=== PATIENT | male | born 1950 | race Caucasian/White ===

== ENCOUNTER 2020-08-07 07:46 | Inpatient (IN) ==
--- NOTE | 2020-07-16 13:38 | PAT Medication Instructions ---
Medication Instructions Date of Service July 16, 2020 Home Medications atorvastatin 10 mg PO QAM levothyroxine 150 mcg PO QAM metoprolol tartrate 12.5 mg PO BID multivitamin 1 tab PO QAM lisinopril 5 mg PO PM warfarin 5 mg PO PM ASK your prescriber and surgeon warfarin 5 mg PO PM DO NOT take the morning of surgery multivitamin 1 tab PO QAM Take morning of surgery With a small sip of water, OTHERWISE NOTHING TO EAT OR DRINK AFTER MIDNIGHT: atorvastatin 10 mg PO QAM levothyroxine 150 mcg PO QAM metoprolol tartrate 12.5 mg PO BID Take evening before surgery metoprolol tartrate 12.5 mg PO BID lisinopril 5 mg PO PM Other Notes If you have any questions please call us at [phone] or [phone] or [phone] or [phone]
--- NOTE | 2020-07-17 08:22 | Anesthesiology Consultation ---
Date of Service July 17, 2020 Assessment & Plan (1) Encounter for pre-operative examination: Chart Review Chart Review: Acceptable Risk for Surgery (pending surgeon ordered PCP/cardio clearance and preop Covid testing ) and Patient seen in Pre Admission Testing Awaiting surgeon ordered PCP clearance (07/20) and cardio clearance (07/24) - Check coags AM DOS Per PAT appt on 07/17/20, patient denies any recent traveling or large group activities. Pt resides in [facility]- travels to [facility] for medical appts. No known Covid positive contacts or Covid related symptoms. No known Covid infection in the past 90 days. Preop Covid testing scheduled 07/31/20= will await results. Educated on importance of self quarantining, social distancing and wearing mask in public both for the patient and household contacts. Cardioversion 03/13/20= Done under [facility] Teaching & Discussion Pre-Anesthesia Teaching/Discussion Notes: Instructed NPO after midnight before surgery,except medications with 15 cc of water. Medication instructions provided according to the [facility] guidelines. History Surgery Operation Date: 08/07/20 10:05 Proposed Procedures p L3-S1 Posterior Decompression/Fusion, Spinal Cord Monitoring - Thom Valverde DO Height/Weight Height: 6 ft Weight: 117.4 kg Allergies Allergy/AdvReac Type Severity Reaction Status Date / Time No Known Allergies Allergy Verified 07/16/20 11:09 Medications Home Medications Medication Instructions Recorded Confirmed Last Taken atorvastatin 10 mg PO QAM 03/09/20 07/16/20 Unknown levothyroxine 150 mcg PO QAM 03/09/20 07/16/20 Unknown metoprolol tartrate 12.5 mg PO BID 03/09/20 07/16/20 Unknown multivitamin 1 tab PO QAM 03/09/20 07/16/20 Unknown lisinopril 5 mg PO PM 07/16/20 07/16/20 Unknown warfarin 5 mg PO PM 07/16/20 07/16/20 Unknown Past Medical History Medical History (Updated 07/17/20 @ 08:56 by Thalia Meza PA-C) Anxiety no meds at present Atrial fibrillation dx fall 2019 > Metoprolol/Warfarin > cardioversion x1 BPH (benign prostatic hyperplasia) Chronic back pain CKD (chronic kidney disease) Per records- Stage 3 Hyperlipidemia Hypothyroidism NICM (nonischemic cardiomyopathy) EF 40-45% on 05/2020 ECHO Lisinopril for this, not HTN per pt Osteoarthritis Prediabetes Per [facility] Exercise / Class Metabolic Activity III < 4 Walking/Shop/Light housework (one flight of stairs - no chest pain, mild SOB ) Past Surgical History Surgical History History of cardiac cath no stents > Apr 2020 > [facility] History of cardioversion Feb 2020 History of cataract surgery bilat History of colonoscopy History of prostate surgery for enlargement History of tonsillectomy History of tooth extraction History of total hip arthroplasty bilat Past Anesthesia History No Hx of Anesthesia Complications and No Family Hx of Anesthesia Complications History of PONV No Hx of PONV and No Hx of Motion Sickness Social History Smoking Status: Never smoker Do You Dip or Chew Tobacco: Yes (on occasion> advised) Hx Alcohol Use: Yes Alcohol type: beer alcohol intake frequency: a few times a month Hx Substance Use: No substance use type: does not use Review of Systems HAGAN- chronic and ongoing since back issue Patient denies chest pain, shortness of breath at rest, reflux, cough, wheezing, palpitations. No hx of seizures, stroke, HI, apnea/snoring. No hx of blood clots or blood transfusions Physical Exam Vital Signs VITALS BP 159/77 (usually well controlled per patient) P 56 TEMP 97.8 SP02 96% RESP 16 Constitutional no acute distress ENMT Mouth: no TMJ clicking Thyromental Distance: > or= 3.5 Finger Breadths (3.5) Mallampati Class: III Missing molars Caps/crowns on molars and front teeth Permanent implant - on top right tooth Neck + limited neck extension (moderate to severe ) Respiratory normal respiratory effort; no respiratory distress Auscultation: lungs clear to auscultation bilaterally; no wheezes Cardiovascular Rate/Rhythm: + irregularly irregular (rate controlled ) Heart Sounds: no murmur Vessels: no carotid bruit Musculoskeletal Spine: no pain with cervical ROM Extremities: extremities normal to inspection Psychiatric Orientation: alert Testing Laboratory Results 07/17/20 08:40 07/17/20 08:40 PT 21.8 Seconds (9.0-12.0) H 07/17/20 08:40 INR 2.3 (0.9-1.1) H 07/17/20 08:40 APTT 40.4 Seconds (21.0-31.0) H 07/17/20 08:40 Urine Color Yellow 07/17/20 08:40 Urine Appearance Clear (Clear) 07/17/20 08:40 Urine pH 5.0 (4.5-7.5) 07/17/20 08:40 Ur Specific [place] 1.019 (1.000-1.030) 07/17/20 08:40 Urine Protein Negative (Negative) 07/17/20 08:40 Urine Glucose (UA) Negative (Negative) 07/17/20 08:40 Urine Ketones Negative (Negative) 07/17/20 08:40 Urine Nitrite Negative (Negative) 07/17/20 08:40 Ur Leukocyte Esterase Negative (Negative) 07/17/20 08:40 Blood Type O Positive 07/17/20 08:40 Antibody Screen NEGATIVE 07/17/20 08:40 Electrocardiogram Date: 07/17/20 SR with frequent PVCs at 60bpm. Otherwise normal EKG per cardio Chest X-Ray Date: 05/15/20 Findings: + NAD Echocardiogram Date: 06/14/20 EF: 40-44% LV Function: dysfunctional (Mildly reduced ) Other Findings: + diastolic dysfunction (Grade I ) Valvular Disease: + MR (mild ) Base inferior wall appears thinned and moderately akinetic. Mild TR. Mild AR. Mild MO Compared to last available study changes are noted as follows : LV systolic function as improved. Stress Test Date: 04/20/20 Type: nuclear Abnormal Lexiscan nuclear stress test. Stress test is positive for apical ischemia with otherwise normal perfusion. Mild hypokinesis involving the apical cap, otherwise, normal wall motion. EF calculated to be 56%. Baseline EKG shows sinus rhythm with nonspecific STT wave changes. No new ST segment depression. Cardiac Catheterization Date: 05/17/20 LM = patent LAD = mild luminal irregularities Left circumflex = mild luminal irregularities RCA = luminal irregularities consistent with minor CAD. Summary: Minor CAD and widely patent coronary anatomy. EF =60%. Recommendations: Continue risk factor modification and medical management of CAD.
[2020-07-17 10:19] LABS: Appearance Urine Clear (Clear); Basophils # (auto) 0.04 K/uL (0-0.2); Basophils % (auto) 0.7 %; Bilirubin Urine Negative (Negative); Blood Urine Negative (Negative); Color Urine Yellow; Eosinophils # (auto) 0.15 K/uL (0-0.5); Eosinophils % (auto) 2.4 %; Glucose Urine UA Negative (Negative); Hematocrit (blood only) 46.5 % (42-52); Immature Granulocytes # (auto) 0.01 K/uL (0.00-0.02); Immature Granulocytes % (auto) 0.2 %; Ketones Urine Negative (Negative); Leukocyte Esterase Urine Negative (Negative); Mean Corpuscular Hemoglobin 31.3 pg (25-34); Mean Corpuscular Hgb Conc 34.4 g/dL (32-36); Mean Platelet Volume 9.7 fL (7.4-10.4); Monocytes # (auto) 0.71 K/uL (0.11-0.59); Monocytes % (auto) 11.6 %; Neutrophils # (auto) 3.32 K/uL (1.4-6.5); Neutrophils % (auto) 54.1 %; Nitrite Urine Negative (Negative); Platelet Count 224 K/uL (130-400); Protein Urine Negative (Negative); RDW Coefficient of Variation 12.9 % (11.5-14.5); RDW Standard Deviation 42.7 fL (36.4-46.3); Red Blood Count 5.11 M/uL (4.7-6.1); Specific Gravity Urine 1.019 (1.000-1.030); Urobilinogen Urine Negative (Negative); White Blood Count 6.13 K/uL (4.8-10.8)
[2020-07-17 10:29] LABS: INR 2.3 (0.9-1.1); Partial Thromboplastin Ratio 1.5; Partial Thromboplastin Time 40.4 Seconds (21.0-31.0); Prothrombin Time 21.8 Seconds (9.0-12.0)
[2020-07-17 10:51] LABS: BUN Creatinine Ratio 16.6 (10-20); Calcium 9.4 mg/dl (8.5-10.1); Creatinine Clr Calc Pharmacy 71.7 ml/min; Est GFR (African American) 66.7; Est GFR (Non-African American) 57.6
--- NOTE | 2020-07-17 13:00 | Electrocardiogram Report ---
Test Reason : Blood Pressure : / mmHG Vent. Rate : 060 BPM Atrial Rate : 060 BPM P-R Int : 182 ms QRS Dur : 076 ms QT Int : 434 ms P-R-T Axes : 077 042 -12 degrees QTc Int : 434 ms Sinus rhythm with frequent Premature ventricular complexes Otherwise normal ECG When compared with ECG of 13-MAR-2020 07:48, Sinus rhythm has replaced Ectopic atrial rhythm Confirmed by Aneesh Urbina ([id number]) on 07/17/2020 12:59:49 PM Referred By: Thom Valverde Confirmed By:Aneesh Urbina
[~2020-08-07 07:46] MED LIST: ACETAMINOPHEN 500 MG TAB PO SCH; CeleBREX 200 MG CAP PO SCH; GABAPENTIN 300 MG CAP PO SCH; LR 15ML/HR IV SCH; ceFAZolin 2000MG 2,000 MG/15 ML SYR IV SCH
[2020-08-07] MEDS ORDERED: MIDAZOLAM HCL 1 MG/ML 2ML VIAL ONE (08:18)
[2020-08-07] MEDS ORDERED: fentaNYL citrate PF 100 MCG/2 ML VIAL ONE ×2 (08:19→11:27)
[2020-08-07 08:31] LABS: INR 1.1 (0.9-1.1); Partial Thromboplastin Ratio 1.1; Partial Thromboplastin Time 28.4 Seconds (21.0-31.0); Prothrombin Time 10.7 Seconds (9.0-12.0)
--- NOTE | 2020-08-07 09:05 | History & Physical Bridge Note ---
Date of Service August 07, 2020 History & Physical Bridge Note I have examined the patient, reviewed the History & Physical and in the interval since the performance of the History & Physical I have noted the following changes of clinical significance: no changes noted
--- NOTE | 2020-08-07 09:06 | History & Physical Report ---
Date of Service August 07, 2020 Assessment & Plan (1) Neurogenic claudication due to lumbar spinal stenosis: Admission and Anticipated Discharge Date Admission Date: L3-S1 posterior decompression fusion History of Present Illness Chief Complaint: Back and bilateral leg pain Primary Care Provider: Kusum Brooke MD This is a 70-year-old male who presents with chronic persistent back and bilateral leg pain. Failing extensive course of nonoperative care is here for surgical intervention. Allergies Allergy/AdvReac Type Severity Reaction Status Date / Time No Known Allergies Allergy Verified 08/07/20 08:05 Home Medications Medication Instructions Recorded Confirmed Type atorvastatin 10 mg PO QAM 03/09/20 08/07/20 History levothyroxine 150 mcg PO QAM 03/09/20 08/07/20 History metoprolol tartrate 12.5 mg PO BID 03/09/20 08/07/20 History multivitamin 1 tab PO QAM 03/09/20 08/07/20 History lisinopril 5 mg PO PM 07/16/20 08/07/20 History warfarin 5 mg PO PM 07/16/20 08/07/20 History Past Med/Surg History Medical History (Updated 08/07/20 @ 09:06 by Thom Valverde DO) Anxiety no meds at present Atrial fibrillation dx fall 2019 > Metoprolol/Warfarin > cardioversion x1 BPH (benign prostatic hyperplasia) Chronic back pain CKD (chronic kidney disease) Per records- Stage 3 Hyperlipidemia Hypothyroidism NICM (nonischemic cardiomyopathy) EF 40-45% on 05/2020 ECHO Lisinopril for this, not HTN per pt Osteoarthritis Prediabetes Per records Surgical History History of cardiac cath no stents > Apr 2020 > [facility] [place] History of cardioversion Feb 2020 History of cataract surgery bilat History of colonoscopy History of prostate surgery for enlargement History of tonsillectomy History of tooth extraction History of total hip arthroplasty bilat Social History Smoking Status: Never smoker Second Hand Exposure: No; Do You Dip or Chew Tobacco: Yes (on occasion> advised); Tobacco Cessation Education Requested by Patient: No Hx Alcohol Use: Yes Alcohol type: beer, wine and hard liquor Hx Substance Use: No Preferred Language: [place] Communication Ability: Effective Driver License Agent Required: No Beliefs That Will Affect Care: None Current Living Situation: Spouse Other Information That Helps Us Care for You: No Feels Safe at Home: Yes Safety Concerns: Feels Safe At This Time Assistive Devices: None Physical Exam Physical Exam: Patient is alert and oriented Heart regular in rhythm Lungs clear to auscultation Results & Data ([facility]) Vital Signs (Past 12 Hours) Vital Signs Temp Pulse Resp BP Pulse Ox 08/07/20 08:25 36.6 C 60 18 152/81 H 98
[2020-08-07] MEDS ORDERED: BUPIVACAINE/EPINEPHRINE 0.5% MPF 1:200,000 30 ML VIAL ONE (09:13)
[2020-08-07] MEDS ORDERED: ceFAZolin 330 MG/ML 1 GM VIAL ONE (09:13)
[2020-08-07] MEDS ORDERED: ePHEDrine sulfate 50 MG/ML AMP IV PRN (09:28)
[2020-08-07] MEDS ORDERED: fentaNYL citrate PF 100 MCG/2 ML VIAL IV PRN (09:28)
[2020-08-07] MEDS ORDERED: ONDANSETRON INJ 2 MG/ML 2 ML VIAL IV PRN ×2 (09:28→14:17)
[2020-08-07] MEDS ORDERED: ATROPINE SULFATE 0.1 MG/ML 10ML SYR IV PRN (09:28)
[2020-08-07] MEDS ORDERED: HYDROmorphone INJ 2 MG/ML SYR/VIAL IV PRN (09:28)
[2020-08-07] MEDS ORDERED: HYDROmorphone INJ 2 MG/ML SYR/VIAL ONE (10:01)
[2020-08-07] MEDS ORDERED: FLOSEAL HEMOSTATIC MATRIX 10ML TOP ONE (10:30)
[2020-08-07] MEDS ORDERED: ONDANSETRON INJ 2 MG/ML 2 ML VIAL ONE (10:39)
[2020-08-07] MEDS ORDERED: NEOSTIGMINE METHYLSULFATE 1 MG/ML 10ML VIAL ONE (10:39)
[2020-08-07] MEDS ORDERED: PHENYLEPHRINE 100MCG/ML 5ML SYR ONE (10:39)
[2020-08-07] MEDS ORDERED: PROPOFOL IV EMULSION 10 MG/ML 20 ML VIAL IV ONE (10:39)
[2020-08-07] MEDS ORDERED: LARYING-O-JET KIT (LTA) ONE (10:39)
[2020-08-07] MEDS ORDERED: GLYCOPYRROLATE 0.2 MG/ML VIAL ONE (10:39)
[2020-08-07] MEDS ORDERED: ROCURONIUM BROMIDE 10 MG/ML 5 ML VIAL IV ONE (10:39)
[2020-08-07] MEDS ORDERED: LIDOCAINE 2% 2 ML VIAL/AMP(20MG/ML) INFIL ONE (10:39)
[2020-08-07] MEDS ORDERED: DEXAMETHASONE SOD INJ 4 MG/ML VIAL ONE (10:39)
[2020-08-07] MEDS ORDERED: ePHEDrine sulfate 50 MG/ML SYR ONE (10:39)
--- NOTE | 2020-08-07 12:35 | Operative Report ---
Post Operative Report Pre & Post Diagnosis Operation Date: 08/07/20 09:35 Pre-Op Diagnosis: Neurogenic claudication due to lumbar spinal stenosis Spondylolisthesis L3-4 L4-5 Post-Op Diagnosis: Same I identified the patient and participated in the time-out.: Yes Procedure Operation Date: 08/07/20 09:35 Actual Procedures #1 lumbar decompression with bilateral medial facetectomies and foraminotomies L2-3, L3-4, L4-5 and L5-S1. #2 posterior spinal fusion L3-4, L4-5 and L5-S1. #3 placed posterior segmental instrumentation L3-S1. #4 interbody fusion L3-4, L4-5 and L5-S1. #5 placement peek cage 13 x 26 mm at L3-4 13 x 26 mm at L4-5 and 11 x 26 mm at L5-S1. #6 placement locally harvested morselized autograft in the posterior lateral gutters. #7 placement infuse collagen sponge, master graft in the posterior lateral gutters and I factor in the interbody spaces. Surgeon Thom Valverde, DO Child Daycare Worker Sheri Hutton Estimated Blood Loss 700 Findings See Below Patient is 6 foot tall weighing over 115 kg with a BMI in excess of 34. The patient's body habitus combined with an EBL of greater than 700 cc created significant technical difficulty. He required her deepest retractors and longus instruments in order to perform his procedure this at least 50% increase to the operative time. Specimens None Indications This is a 70-year-old male who presents with above-mentioned diagnosis after failing stents course of nonoperative care is here for the above-mentioned procedure. Description of Procedure Patient met with identified informed consent obtained. Patient was then taken to the operative suite underwent an patient placed in a prone position injectable top Misha frame. All bony prominences well-padded eyes inspected to ensure no external pressure placed upon the. This point the lumbar spine was prepped and draped in a sterile fashion. Sharp dissection with the assistance of Bovie cautery performed down to and exposing the lamina and transverse processes of L3-L4-L5 and the sacral ala bilaterally. From caudal to cephalad fashion complete laminectomy L5 L4 L3 partial laminectomy of L2 was performed including bilateral medial facetectomies and foraminotomies addressing severe spinal stenosis. Pedicle screws were then placed in L3-L4-L5 and S1 levels bilaterally with assistance of fluoroscopy and the proper sized robby placed. Bilateral transforaminal approach on the left complete discectomy of L5-S1 was performed endplates curetted to subcortically bone and 11 x 26 mm peek cage filled I factor tapped in position. Then proceeded L4-L5 again by way of a transforaminal portion left complete discectomy was performed endplates curetted to subcortically bone and a 13 x 26 mm peek cage filled I factor tapped in position. Lastly I approached L3-L4 and again by way of a transforaminal approach and left complete discectomy performed endplates curetted to subcortical mean bone and a 13 x 26 mm peek cage filled with I factor tapped in position. The rods and locked into final position bilaterally. The transverse processes of L3-L4-L5 and the sacral ala burred to subcortical bleeding bone. Infuse collagen sponge master graft and local autograft was placed in the posterior gutters. 15 round JANELL drain inserted. The incision was then closed with 1 Vicryl fascia 2-0 Vicryl subcutaneously and 4 Monocryl for final skin closure. Steri-Strip sterile dressings placed. Patient will continue PACU stable condition. Please note spinal cord monitoring was utilized at the procedure no changes noted. Lastly Sheri Hutton was present at the entire procedure about the patient positioning complex portions of the surgery and final skin closure. I attest to the content of the Intraoperative Record and any orders documented therein. Any exceptions are noted below.
--- NOTE | 2020-08-07 13:11 | Fluoroscopy Report ---
FL lumbar spine 2-3V HISTORY: 70 years-old Male L3-S1 DECOMPRESSION AND FUSION COMPARISON: Chest radiographs 05/09/2014 TECHNIQUE: 2 spot fluoroscopic images of the lumbar spine were obtained utilizing 27.6 seconds fluoro scopy time FINDINGS: Images were submitted after completion of the surgery. Posterior interbody robby and screw fusion with discectomy changes at L3-S1. Alignment appears satisfactory. The hardware appears intact. There is an indeterminate curvilinear radiodensity which is partially outside the [id number] projected over t he posterior aspect of the mid sacrum seen only on the lateral view. IMPRESSION: Fluoroscopic assistance as above. ACT 112: Negative or not required by law. The above report was generated using voice recognition software. It may contain grammatical, syntax o r spelling errors. Electronically signed by: Felipe Tovar M.D. 08/07/2020 1:09 PM
[2020-08-07] MEDS ORDERED: ONDANSETRON 4 MG OD TAB PO PRN (14:17)
[2020-08-07] MEDS ORDERED: diphenhydrAMINE Capsule 25 MG CAP PO PRN (14:17)
[2020-08-07] MEDS ORDERED: ACETAMINOPHEN 500 MG TAB PO PRN (14:17)
[2020-08-07] MEDS ORDERED: ALUMINUM/MAGNESIUM SUSP 30 ML UDC PO PRN (14:17)
[2020-08-07] MEDS ORDERED: SOD PHOSPHATE/SOD BIPHOSPHATE ENEMA 132 ML BTL PR PRN (14:17)
[2020-08-07] MEDS ORDERED: NALOXONE HCL 0.4 MG/1 ML VIAL/CARP IV PRN (14:17)
[2020-08-07] MEDS ORDERED: hydrOXYzine HCl 25 MG TAB PO PRN (14:17)
[2020-08-07] MEDS ORDERED: bisacodyL 10 MG SUPP PR PRN (14:17)
[2020-08-07] MEDS ORDERED: FAMOTIDINE 20 MG TAB PO PRN (14:17)
[2020-08-07] MEDS ORDERED: LORazepam 0.5 MG/1 ML VIAL IV PRN (14:17)
[2020-08-07] MEDS ORDERED: HYDROmorphone INJ 1 MG/ML SYRINGE IV PRN (14:17)
[2020-08-07] MEDS ORDERED: DO NOT ADMINISTER PNEUMOCOCCAL VACCINE PRN (14:17)
[2020-08-07] MEDS ORDERED: DO NOT ADMINISTER FLU VACCINE PRN (14:17)
[2020-08-07] MEDS ORDERED: METOCLOPRAMIDE HCL INJ 5 MG/ML 2 ML VIAL IV PRN (14:17)
[2020-08-07] MEDS ORDERED: MAGNESIUM HYDROXIDE SUSP 30 ML UDC PO PRN (14:17)
[2020-08-07] MEDS ORDERED: PROMETHAZINE HCL 12.5 MG in SODIUM CHLORIDE 0.9% 50 ML IV PRN (14:17)
[2020-08-07] MEDS ORDERED: ACETAMINOPHEN 1,000 MG/100 ML VIAL IV PRN (14:17)
[2020-08-07] MEDS: LACTATED RINGER'S 1,000 ML IV SCH ×2 (14:31→21:03)
[2020-08-07] MEDS: HYDROmorphone INJ 0.5 MG/0.5 ML SYR IV PRN (14:36)
--- NOTE | 2020-08-07 14:57 | Hospitalist Consultation ---
Date of Consultation August 07, 2020 Assessment & Plan (1) Neurogenic claudication due to lumbar spinal stenosis: - Pain management, bowel regimen per the primary team - PT/OT consulted - Follow am CBC to monitor for acute blood loss (2) Atrial fibrillation: - Held coumadin prior to surgery, can resume after 24 hours once ok'd by primary team - Follow INR daily - Currently rate controlled on metoprolol tartrate 12.5 mg BID (3) NICM (nonischemic cardiomyopathy): - Cont atorvastatin, lisinopril, metoprolol - Hx of cardioversion in Feb 2020. Last eCho from 06/14/20 with EF of 40-44%, inferior wall appears thinned and moderately hypokinetic, remaining left ventricular wall segments are mildly hypokinetic. Mild mitral regurg, mild tricuspid regurg, mild aortic valv regurg, left ventricular diastolic dysfunction mildly abnormal. 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 Browne. Please do not hesitate to call with questions or concerns. Medicine service will follow along. Supervising Physician Co-Signing Physician Notes Attending addendum The patient was seen and examined in medical floor He is a status post L3-S1 posterior decompression and fusion Remains a little drowsy without any significant symptoms On examination Lying in bed comfortably Hemodynamically stable Chest clear to auscultate bilaterally HeartS1-S2 regular Abdomen-benign Extremitiesno edema GRAPHICS PRODUCTION SPECIALIST-alert, awake and oriented x3 His labs, EKG and imaging studies reviewed He is status post lumbar decompression fusion with history of atrial fibrillation, nonischemic cardiomyopathy, hyperlipidemia and prediabetes Seems medically stable Agree with assessment and plan as outlined above by Bebe Philipowicz ,PA-c Dr M Shelby History of Present Illness Reason for Consultation: Medical management Requesting Physician: Dr. Valverde Attending Physician: Thom Valverde, DO History of Present Illness This is a 70 yo M with PMhx of atrial fibrillation on coumadin, nonischemic cardiomyopathy with EF of 40-45%, prediabetes, HLD, anxiety, BPH, osteoarthritis, who presented for elective L3-S1 spinal fusion decompression surgery by Dr. Valverde on 08/07/20. He is doing well postoperatively. Pt reports chronic numbness in feet bilaterally, but reports is at baseline currently, and able to move legs and toes without any difficulty. He has not had much to eat/drink since surgery, denies nausea/vomiting. Last BM was this morning. is present at bedside and was updated. Allergies Allergy/AdvReac Type Severity Reaction Status Date / Time No Known Allergies Allergy Verified 08/07/20 08:05 Home Medications Medication Instructions Recorded Confirmed Type atorvastatin 10 mg PO QAM 03/09/20 08/07/20 History levothyroxine 150 mcg PO QAM 03/09/20 08/07/20 History metoprolol tartrate 12.5 mg PO BID 03/09/20 08/07/20 History multivitamin 1 tab PO QAM 03/09/20 08/07/20 History lisinopril 5 mg PO PM 07/16/20 08/07/20 History warfarin 5 mg PO PM 07/16/20 08/07/20 History Patient History Medical History (Updated 08/07/20 @ 14:52 by Bebe Hernandez PA-C) Anxiety no meds at present Atrial fibrillation dx fall 2019 > Metoprolol/Warfarin > cardioversion x1 BPH (benign prostatic hyperplasia) Chronic back pain CKD (chronic kidney disease) Per records- Stage 3 Hyperlipidemia Hypothyroidism NICM (nonischemic cardiomyopathy) EF 40-45% on 05/2020 ECHO Lisinopril for this, not HTN per pt Osteoarthritis Prediabetes Per records Surgical History History of cardiac cath no stents > Apr 2020 > [facility] History of cardioversion Feb 2020 History of cataract surgery bilat History of colonoscopy History of prostate surgery for enlargement History of tonsillectomy History of tooth extraction History of total hip arthroplasty bilat Social History Smoking Status: Never smoker Second Hand Exposure: No; Do You Dip or Chew Tobacco: Yes (on occasion> advised); Tobacco Cessation Education Requested by Patient: No Hx Alcohol Use: Yes Alcohol type: beer, wine and hard liquor Hx Substance Use: No Preferred Language: Salvadorean Communication Ability: Effective Document Advisor Required: No Beliefs That Will Affect Care: None Current Living Situation: Spouse Other Information That Helps Us Care for You: No Feels Safe at Home: Yes Safety Concerns: Feels Safe At This Time Assistive Devices: None Review of Systems Review of Systems: Constitutional: No fever, sweats or chills Eyes: No diplopia, no worsening or blurred vision ENT: normal hearing, no trouble swallowing Respiratory: No cough, sputum, dyspnea at rest or on exertion Cardiovascular: No chest pain, tightness or palpitations Abdomen: No pain, nausea, vomiting, diarrhea or constipation Musculoskeletal: No joint pain, calf pain, swelling Neurologic: No weakness, numbness/tingling, or balance problems Psychiatric: No anxiety or depression Skin: No rash or itch Physical Exam Physical Exam: General: awake, alert, no apparent distress Head: Normocephalic, atraumatic ENT: PERRL, EOMI, no pharyngeal exudate, mucous membranes moist Chest: Clear to auscultation, on room air, no adventitious breath sounds Cardiac: Regular rate and rhythm, faint systolic murmur II/, no JVD, normal peripheral pulses, good capillary refill Abdominal: NABS x 4 quadrants, soft, nondistended, nontender to palpation, no rebound or guarding Extremities: Normal inspection, no peripheral edema or erythema, calfs nontender to palpation Psych: Normal mood and affect Neuro: AAO x 3, no motor deficits, speech is clear, no peripheral sensory deficits Results & Data Results & Data ([facility]) Vital Signs (Past 12 Hours) Vital Signs Temp Pulse Pulse Resp BP Pulse Ox 08/07/20 13:30 69 14 160/72 H 95 08/07/20 13:20 36 C L 60 14 116/80 96 08/07/20 13:10 94 H 21 140/79 96 08/07/20 13:00 71 14 150/72 H 99 08/07/20 12:51 36.4 C L 67 14 130/69 99 08/07/20 08:25 36.6 C 60 18 152/81 H 98
--- NOTE | 2020-08-07 15:00 | Anesthesiology Progress Note ---
Date of Service August 07, 2020 Anesthesia Post Procedure Vital Signs Vital Signs: Temp Pulse Pulse Pulse Resp BP Pulse Ox 08/07/20 14:53 36.3 C L 69 16 133/71 95 08/07/20 13:30 69 14 160/72 H 95 08/07/20 13:20 36 C L 60 14 116/80 96 08/07/20 13:10 94 H 21 140/79 96 08/07/20 13:00 71 14 150/72 H 99 08/07/20 12:51 36.4 C L 67 14 130/69 99 08/07/20 08:25 36.6 C 60 18 152/81 H 98 Transfer of Care Handoff Completed per policy Notes Mental Status: alert / awake / arousable and participated in evaluation Patient Amnestic to Procedure: Yes Nausea / Vomiting: adequately controlled Pain: adequately controlled Airway Patency, RR, SpO2: stable & adequate BP & HR: stable & adequate Hydration State: stable & adequate Anesthetic Complications: no major complications apparent and Pt Satisfied with anesthetic care Notes: Pt went up to the floor and on arrival was noted to have palpable pulse of 30. He was returned to PACU and EKG showed that he had been in [place] at that time with an overall rate in 60s, but a sinus node rate of 30s. On rearrival to PACU he was noted to have a heart rate in the 60s to 70s with frequent PVCs (no longer in bigeminy). His blood pressure was stable and appropriate and the patient denied symptoms of CP or palpitations. Preop EKG had been significant for frequent PVCs. Patient is ok to return to the floor as his heart rate and PVCs are at his preoperative baseline. Explained this to the patient who is comfortable returning to the floor.
[2020-08-07] MEDS: ceFAZolin 2000MG 2,000 MG/15 ML SYR IV SCH (17:12)
[2020-08-07] MEDS: KETOROLAC TROMETHAMINE 15 MG/ML VIAL IV SCH ×2 (17:13→21:04)
[2020-08-07] MEDS: oxyCODONE HCL IR 5 MG TAB (IMMEDIATE RELEASE) PO PRN (19:31)
[2020-08-07] MEDS: lisinopril 5 MG TAB PO SCH (21:04)
[2020-08-07] MEDS: METOPROLOL TARTRATE 25 MG TAB PO SCH (21:04)
[2020-08-07] MEDS: DOCUSATE SODIUM/SENNA 50/8.6MG TAB PO SCH (21:04)
[2020-08-08] MEDS: ceFAZolin 2000MG 2,000 MG/15 ML SYR IV SCH (01:27)
[2020-08-08] MEDS: oxyCODONE HCL IR 5 MG TAB (IMMEDIATE RELEASE) PO PRN ×2 (01:31→05:37)
[2020-08-08] MEDS: KETOROLAC TROMETHAMINE 15 MG/ML VIAL IV SCH ×2 (03:28→09:28)
[2020-08-08] MEDS: LORazepam 0.5 MG TAB PO PRN ×3 (03:32→21:01)
[2020-08-08] MEDS: LEVOTHYROXINE SODIUM 150 MCG TABLET PO SCH (05:37)
[2020-08-08] MEDS: POLYETHYLENE (MIRALAX) 17 GM PACK PO SCH ×4 (05:37→23:00)
[2020-08-08 07:09] LABS: Eosinophils # (auto) 0.01 K/uL (0-0.5); Eosinophils % (auto) 0.1 %; Hematocrit (blood only) 35.5 % (42-52); Hemoglobin 12.1 g/dL (14.0-18.0); Immature Granulocytes # (auto) 0.04 K/uL (0.00-0.02); Immature Granulocytes % (auto) 0.2 %; Lymphocytes # (auto) 0.94 K/uL (1.2-3.4); Lymphocytes % (auto) 5.6 %; Mean Corpuscular Hemoglobin 31.3 pg (25-34); Mean Corpuscular Hgb Conc 34.1 g/dL (32-36); Mean Corpuscular Volume 91.7 fL (80-100); Mean Platelet Volume 9.9 fL (7.4-10.4); Monocytes # (auto) 1.44 K/uL (0.11-0.59); Monocytes % (auto) 8.6 %; Neutrophils # (auto) 14.29 K/uL (1.4-6.5); Neutrophils % (auto) 85.5 %; Platelet Count 194 K/uL (130-400); RDW Standard Deviation 43.4 fL (36.4-46.3); Red Blood Count 3.87 M/uL (4.7-6.1); White Blood Count 16.72 K/uL (4.8-10.8)
[2020-08-08 07:16] LABS: INR 1.1 (0.9-1.1)
[2020-08-08 07:38] LABS: BUN Creatinine Ratio 16.9 (10-20); Calcium 8.2 mg/dl (8.5-10.1); Est GFR (African American) 72.3 ml/min; Est GFR (Non-African American) 62.4 ml/min; Potassium 4.5 mmol/L (3.5-5.1)
[2020-08-08] MEDS: HYDROmorphone INJ 0.5 MG/0.5 ML SYR IV PRN (07:52)
[2020-08-08] MEDS: METOPROLOL TARTRATE 25 MG TAB PO SCH ×2 (08:37→20:13)
[2020-08-08] MEDS: MULTIVITAMIN TAB PO SCH (08:38)
[2020-08-08] MEDS: ATORVASTATIN 10 MG TAB PO SCH (08:38)
--- NOTE | 2020-08-08 09:28 | Hospitalist Progress Note ---
Date of Service August 08, 2020 Assessment & Plan (1) Neurogenic claudication due to lumbar spinal stenosis: - Pain management, bowel regimen per the primary team - PT/OT consulted - Follow am CBC to monitor for acute blood loss - Hgb 12.1, previously 16.0. WBC 16.72 but likely reactive s/p surgery. Monitor (2) Atrial fibrillation: - Held coumadin prior to surgery, can resume tonight if ok'd by primary team- it will be 24 hrs after surgery. - Follow INR daily, currently 1.1 - Currently rate controlled on metoprolol tartrate 12.5 mg BID (3) NICM (nonischemic cardiomyopathy): - Cont atorvastatin, lisinopril, metoprolol - Hx of cardioversion in Feb 2020. Last eCho from 06/14/20 with EF of 40-44%, inferior wall appears thinned and moderately hypokinetic, remaining left ventricular wall segments are mildly hypokinetic. Mild mitral regurg, mild tricuspid regurg, mild aortic valv regurg, left ventricular diastolic dysfunction mildly abnormal. - Follows cardiology as outpatient (4) Hyperlipidemia: - Cont statin therapy (5) Prediabetes: - Last A1C = 5.9 on 09/29/19, rechecking A1c today -Glucose on BMP is slightly elevated, likely secondary to steroid given intraoperatively -Discussed diet and exercise after surgery at length, patient has gained 15-20 lbs in past 15 mo. notes worsening neuropathy in bilateral feet in the past 15 months as well. Question if this is secondary to spinal stenosis versus diabetic neuropathy? (6) CKD (chronic kidney disease): - Cr baseline of 1.2-1.3 - Cont GRACIELA - follow with am labs (7) Hypothyroidism: - Cont levothyroxine 150 mcg daily, TSH from 06/20/20 was 0.82 (8) BPH (benign prostatic hyperplasia): - Hx of such, not on medication [employer] (9) DVT prophylaxis: - holding coumadin for now, likely resume this tonight, scds, teds CODE: FULL Dispo: From home Thank you for involving us in the care of Mr. Browne. Please do not hesitate to call with questions or concerns. Medicine service will follow along. Admission and Anticipated Discharge Date Admission Date: August 07, 2020 Supervising Physician Co-Signing Physician Notes Patient is seen and examined at bedside Back pain is controlled. Had physical therapy earlier today. Denies chest pain, shortness of breath, dizziness, nausea, abdominal pain. Had no bowel movement today. On exam patient is obese, no apparent distress, normocephalic atraumatic, lungs are clear to auscultation, normal breath sounds, S1-S2,+ murmur, no pedal edema abdomen soft, nontender, back-surgical site in dressing, alert, awake, oriented, grossly no focal deficits. Continue pain management, bowel regimen. Monitor CBC. Continue incentive spirometry. Resume Coumadin for atrial fibrillation if okay with surgery. Monitor INR. I personally reviewed the record. Patient is interviewed and examined at bedside. Patient's care is coordinated with Bebe Hernandez PA-C. Please refer to the documentation above for details of patient's presentation and for discussion of other issues. Subjective The patient was doing well this morning, reports that his pain is worse when he is sitting up in bed, better when he is lying flat, and has utilized IV pain medication which seemed to significantly help this morning. He is not yet passing gas or had BM. Patient is tolerating diet without difficulty. He does have hiccups this morning. Discussed slightly elevated glucose and A1c of 5.9 approximately 1 year ago, he reports having numbness in both feet which has worsened over the past 15 months. He also reports gaining 15 to 20 pounds in the past 15 months. Discussion regarding diet and exercise was held in depth at bedside. He is agreeable to trying to lose some weight and reduce the amount of sugar and bread that he eats on a daily basis. We will recheck his A1c today, and he can follow with his PCP. Review of Systems Review of Systems: Constitutional: No fever, sweats or chills Eyes: No diplopia, no worsening or blurred vision ENT: normal hearing, no trouble swallowing Respiratory: No cough, sputum, dyspnea at rest or on exertion Cardiovascular: No chest pain, tightness or palpitations Abdomen: No pain, nausea, vomiting, diarrhea or constipation Musculoskeletal: No joint pain, calf pain, swelling Neurologic: No weakness, + chronic numbness in bilateral feet, no balance problems Psychiatric: No anxiety or depression Skin: No rash or itch Physical Exam Physical Exam: General: awake, alert, no apparent distress Head: Normocephalic, atraumatic ENT: PERRL, EOMI, no pharyngeal exudate, mucous membranes moist Chest: Clear to auscultation, on room air, no adventitious breath sounds Cardiac: Regular rate and rhythm, faint systolic murmur II/, no JVD, normal peripheral pulses, good capillary refill Abdominal: NABS x 4 quadrants, soft, nondistended, nontender to palpation, no rebound or guarding Back: Dressing C/D/I, JANELL drain with bloody serosanguineous drainage Extremities: Normal inspection, no peripheral edema or erythema, calfs nontender to palpation Psych: Normal mood and affect Neuro: AAO x 3, no motor deficits, speech is clear, slightly reduced peripheral sensory deficit, patient reports as chronic but is able to feel sensation to light touch bilateral feet, reported as dullness. Results & Data Results & Data ([facility]) Vital Signs (Past 12 Hours) Vital Signs Temp Pulse Resp BP Pulse Ox 08/08/20 07:48 36.5 C 70 22 120/69 99 08/08/20 02:45 36.5 C 69 17 109/61 94 08/07/20 22:43 36.5 C 73 16 125/73 97
--- NOTE | 2020-08-08 10:34 | Orthopedic Progress Note ---
Date of Service August 08, 2020 Assessment & Plan (1) Neurogenic claudication due to lumbar spinal stenosis: Admission and Anticipated Discharge Date Admission Date: August 07, 2020 This time continue physical therapy monitor his JANELL operatively discharge home Thursday. Subjective Back pain controlled leg symptoms improved Physical Exam Physical Exam: Patient is in the chair at the bedside. Is good strength testing. Appears comfortable. Results & Data ([facility]) Vital Signs (Past 12 Hours) Vital Signs Temp Pulse Resp BP Pulse Ox 08/08/20 07:48 36.5 C 70 22 120/69 99 08/08/20 02:45 36.5 C 69 17 109/61 94 08/07/20 22:43 36.5 C 73 16 125/73 97
[2020-08-08 11:17] LABS: Estimated Average Glucose 134 mg/dl; Hemoglobin A1C 6.3 % (4.5-5.6)
[2020-08-08] MEDS: traMADol HCL 50 MG TABLET PO PRN ×3 (12:27→20:13)
[2020-08-08] MEDS: DOCUSATE SODIUM/SENNA 50/8.6MG TAB PO SCH (20:12)
[2020-08-08] MEDS: lisinopril 5 MG TAB PO SCH (20:12)
[2020-08-09] MEDS: traMADol HCL 50 MG TABLET PO PRN ×4 (01:10→19:57)
[2020-08-09] MEDS: LEVOTHYROXINE SODIUM 150 MCG TABLET PO SCH (05:36)
[2020-08-09] MEDS: POLYETHYLENE (MIRALAX) 17 GM PACK PO SCH ×4 (05:36→23:09)
[2020-08-09 06:35] LABS: Hematocrit (blood only) 32.8 % (42-52); Hemoglobin 11.2 g/dL (14.0-18.0); Mean Corpuscular Hemoglobin 31.3 pg (25-34); Mean Corpuscular Hgb Conc 34.1 g/dL (32-36); Mean Corpuscular Volume 91.6 fL (80-100); Mean Platelet Volume 9.5 fL (7.4-10.4); Platelet Count 176 K/uL (130-400); RDW Coefficient of Variation 13.4 % (11.5-14.5); RDW Standard Deviation 44.8 fL (36.4-46.3); Red Blood Count 3.58 M/uL (4.7-6.1); White Blood Count 14.84 K/uL (4.8-10.8)
[2020-08-09 06:48] LABS: Prothrombin Time 10.5 Seconds (9.0-12.0)
[2020-08-09 07:17] LABS: BUN Creatinine Ratio 24.3 (10-20); Calcium 7.8 mg/dl (8.5-10.1); Creatinine Clr Calc Pharmacy 68.4 ml/min; Est GFR (African American) 63.6 ml/min; Est GFR (Non-African American) 54.9 ml/min
[2020-08-09] MEDS: MULTIVITAMIN TAB PO SCH (08:11)
[2020-08-09] MEDS: METOPROLOL TARTRATE 25 MG TAB PO SCH ×2 (08:11→21:46)
[2020-08-09] MEDS: ATORVASTATIN 10 MG TAB PO SCH (08:12)
[2020-08-09] MEDS: dexAMETHasone 8 MG in SYRINGE 0 ML IV SCH (08:12)
--- NOTE | 2020-08-09 08:38 | Orthopedic Progress Note ---
Date of Service August 09, 2020 Assessment & Plan (1) Neurogenic claudication due to lumbar spinal stenosis: Admission and Anticipated Discharge Date Admission Date: August 07, 2020 This time continue physical therapy monitor JANELL output hopefully discharge home tomorrow. Subjective Back pain controlled leg symptoms improved Physical Exam Physical Exam: Patient is sitting up at the bedside. Is good strength testing. Results & Data ([facility]) Vital Signs (Past 12 Hours) Vital Signs Temp Pulse Resp BP Pulse Ox 08/09/20 05:39 36.6 C 80 15 136/79 97 08/08/20 22:43 36.5 C 83 16 111/72 97
--- NOTE | 2020-08-09 09:40 | Hospitalist Progress Note ---
Date of Service August 09, 2020 Assessment & Plan (1) Neurogenic claudication due to lumbar spinal stenosis: POD 2 Per ortho for pain control, wound care, anticoagulation and activities Continue incentive spirometry, PT/OT when appropriate WBC downtrending to 14.84 today (16.72 yesterday) likely reactive s/p surgery. Monitor for infectious s/sx (2) Acute blood loss as cause of postoperative anemia: Hgb 11.2 today (preop hgb 16) Asymptomatic Continue to monitor with daily CBC (3) Constipation: Mild abdominal distension and nausea today. No vomiting. No flatus yet, POD #2 Has been on postop bowel regimen KUB to rule out obstruction (4) Atrial fibrillation: Held coumadin prior to surgery, can resume tonight if ok'd by primary team- will discuss with Dr. Valverde Currently rate controlled on metoprolol tartrate 12.5 mg BID (5) NICM (nonischemic cardiomyopathy): Cont atorvastatin, lisinopril, metoprolol Hx of cardioversion in Feb 2020 Last echo from 06/14/20 with EF of 40-44%, inferior wall appears thinned and moderately hypokinetic, remaining left ventricular wall segments are mildly hypokinetic. Mild mitral regurg, mild tricuspid regurg, mild aortic valv regurg, left ventricular diastolic dysfunction mildly abnormal Follows cardiology as outpatient (6) Hyperlipidemia: Cont statin (7) Prediabetes: A1c 6.3 on 08/08/20 Glucose on BMP is slightly elevated, likely secondary to steroid given intraoperatively but improving- BSG this morning 107 Discussed diet and exercise after surgery at length, patient has gained 15-20 lbs in past 15 mo Carb consistent diet Will need follow up a1c in clinic in 3 mo (8) CKD (chronic kidney disease): Cr baseline of 1.2-1.3 Cont GRACIELA Follow with daily BMP (9) Hypothyroidism: Cont levothyroxine 150 mcg daily, TSH from 06/20/20 was 0.82 (10) BPH (benign prostatic hyperplasia): Hx of such, not on medication [employer] (11) DVT prophylaxis: Holding coumadin for now, likely resume this tonight, scds, teds CODE: FULL Dispo: From home Thank you for involving us in the care of Mr. Browne. Please do not hesitate to call with questions or concerns. Medicine service will follow along. Patient seen in collaboration with Dr. Munoz. Please see addendum. Admission and Anticipated Discharge Date Admission Date: August 07, 2020 Supervising Physician Co-Signing Physician Notes Patient is seen and examined at bedside Back pain is controlled. +Flatus but no BM. KUB showed mild fecal retention, no obstruction. Denies chest pain, shortness of breath, dizziness, nausea, abdominal pain. On exam patient is obese, no apparent distress, normocephalic atraumatic, lungs are clear to auscultation, normal breath sounds, S1-S2,+ murmur, no pedal edema abdomen soft, nontender, back-surgical site in dressing, alert, awake, oriented, grossly no focal deficits. Minimize pain meds as able. Encourage ambulation. Continue bowel regimen. Continue incentive spirometry. Resume Coumadin today Monitor INR. I personally reviewed the record. Patient is interviewed and examined at bedside. Patient's care is coordinated with Diana Mcelroy PA-C. Please refer to the documentation above for details of patient's presentation and for discussion of other issues. Subjective Seen and examined in 321-1. Minimal surgical site pain. Denies any pain or paresthesias in bilateral lower extremities. Endorsing some mild nausea without vomiting. Abdomen feels full but not painful. Not passing flatus at this point. Denies any fever, chills, chest pain, shortness of breath, dysuria. Review of Systems Review of Systems: At least ten systems reviewed and negative except as noted in the HPI. Physical Exam Physical Exam: General Appearance: WD/WN, vitals as above, NAD, lying in bed, pleasant, conversing easily Head: normocephalic, atraumatic Eyes: normal inspection, PERRL, conjunctivae normal, anicteric sclerae ENT: external ear and nose normal, oropharynx normal Neck: normal visual inspection, trachea midline, no thyromegaly Respiratory: normal respiratory effort, lungs clear to auscultation, no wheeze, rales, rhonchi. No accessory muscle use Cardiovascular: regular rate, rhythm, no murmur, normal peripheral pulses, no BLE edema Abdomen/GI: +hypoactive bowel sounds, distended but nontender, no hepatospleno megaly Extremities/Musculoskeletal: +Lumbosacral spinal dressing c/d/i. JANELL drain visualized. No cyanosis or clubbing, extremities motor strength 5/5 Neurologic: PERRL, CN's II-XI intact bilaterally and moves all extremities Psychiatric: A+Ox3, euthymic affect Skin: no rashes, normal color, warm/dry Results & Data Results & Data ([place]) Vital Signs (Past 12 Hours) Vital Signs Temp Pulse Resp BP Pulse Ox 08/09/20 05:39 36.6 C 80 15 136/79 97 08/08/20 22:43 36.5 C 83 16 111/72 97 Laboratory Results Short CBC 08/09/20 Range/Units 06:05 WBC 14.84 H (4.8-10.8) K/uL Hgb 11.2 L (14.0-18.0) g/dL Hct 32.8 L (42-52) % Plt Count 176 (130-400) K/uL BMP 08/09/20 06:05 Sodium 137 Potassium 4.0 Chloride 107 Carbon Dioxide 25 BUN 32 H D Creatinine 1.30 Glucose 107 H Calcium 7.8 L Diagnostic Findings Lumbar Spine X-Ray 08/07/20 09:35 FL lumbar spine 2-3V HISTORY: 70 years-old Male L3-S1 DECOMPRESSION AND FUSION COMPARISON: Chest radiographs 05/09/2014 TECHNIQUE: 2 spot fluoroscopic images of the lumbar spine were obtained utilizing 27.6 seconds fluoroscopy time FINDINGS: Images were submitted after completion of the surgery. Posterior interbody robby and screw fusion with discectomy changes at L3-S1. Alignment appears satisfactory. The hardware appears intact. There is an indeterminate curvilinear radiodensity which is partially outside the [id number] projected over the posterior aspect of the mid sacrum seen only on the lateral view. IMPRESSION: Fluoroscopic assistance as above. ACT 112: Negative or not required by law. The above report was generated using voice recognition software. It may contain grammatical, syntax or spelling errors. Electronically signed by: Felipe Tovar M.D. 08/07/2020 1:09 PM
--- NOTE | 2020-08-09 09:52 | Electrocardiogram Report ---
Test Reason : Blood Pressure : / mmHG Vent. Rate : 070 BPM Atrial Rate : 070 BPM P-R Int : 158 ms QRS Dur : 078 ms QT Int : 426 ms P-R-T Axes : 088 -05 -53 degrees QTc Int : 460 ms Sinus rhythm with frequent Premature ventricular complexes in a pattern of bigeminy Low voltage QRS Prolonged QT Abnormal ECG When compared with ECG of 17-JUL-2020 08:37, Nonspecific T wave abnormality now evident in Anterolateral leads Confirmed by Loc Coker ([id number]) on 08/09/2020 9:52:37 AM Referred By: Thom Valverde Confirmed By:Gregory Coker
--- NOTE | 2020-08-09 11:48 | XRay Report ---
KUB CLINICAL HISTORY: Constipation. Recent spinal surgery. FINDINGS: 3 AP supine abdominal radiographs are obtained. Correlation is made with pelvic x-ray dated 06/13/2014. There is a nonobstructed abdominal bowel gas pattern. Only mild fecal retention is noted in the colon. No evidence of intraperitoneal free air is seen on these supine views. There are no abn ormal abdominal calcifications. Phleboliths are seen in the pelvis. There is postoperative change at L3-S1 spinal fusion. A surgical drain is in place. Bilateral hip arthroplasties are noted. IMPRESSION: Nonobstructed abdominal bowel gas pattern. Electronically signed by: Ladarius Melendez M.D. 08/09/2020 11:47 AM
[2020-08-09] MEDS: WARFARIN SOD 5 MG TAB PO SCH ×2 (15:50→21:44)
[2020-08-09] MEDS: lisinopril 5 MG TAB PO SCH (21:43)
[2020-08-09] MEDS: LORazepam 0.5 MG TAB PO PRN (21:43)
[2020-08-09] MEDS: DOCUSATE SODIUM/SENNA 50/8.6MG TAB PO SCH (21:47)
[2020-08-10] MEDS: POLYETHYLENE (MIRALAX) 17 GM PACK PO SCH (05:48)
[2020-08-10] MEDS: LEVOTHYROXINE SODIUM 150 MCG TABLET PO SCH (05:48)
[2020-08-10 06:29] LABS: Hematocrit (blood only) 31.7 % (42-52); Hemoglobin 10.8 g/dL (14.0-18.0); Mean Corpuscular Hemoglobin 31.6 pg (25-34); Mean Corpuscular Hgb Conc 34.1 g/dL (32-36); Mean Corpuscular Volume 92.7 fL (80-100); Mean Platelet Volume 9.5 fL (7.4-10.4); Platelet Count 190 K/uL (130-400); RDW Coefficient of Variation 13.2 % (11.5-14.5); RDW Standard Deviation 44.4 fL (36.4-46.3); Red Blood Count 3.42 M/uL (4.7-6.1); White Blood Count 15.26 K/uL (4.8-10.8)
[2020-08-10] MEDS: traMADol HCL 50 MG TABLET PO PRN (06:39)
[2020-08-10 06:40] LABS: Prothrombin Time 10.3 Seconds (9.0-12.0)
[2020-08-10 07:06] LABS: BUN Creatinine Ratio 23.2 (10-20); Calcium 8.2 mg/dl (8.5-10.1); Creatinine Clr Calc Pharmacy 80.2 ml/min; Est GFR (Non-African American) 66.5 ml/min; Potassium 4.5 mmol/L (3.5-5.1)
[2020-08-10] MEDS: dexAMETHasone 8 MG in SYRINGE 0 ML IV SCH (09:07)
[2020-08-10] MEDS: ATORVASTATIN 10 MG TAB PO SCH (09:07)
[2020-08-10] MEDS: MULTIVITAMIN TAB PO SCH (09:08)
[2020-08-10] MEDS: METOPROLOL TARTRATE 25 MG TAB PO SCH (09:08)
--- NOTE | 2020-08-10 10:16 | Discharge Summary ---
Date of Service August 10, 2020 Admission HPI Per Admitting Provider This is a 70-year-old male who presents with chronic persistent back and bilateral leg pain. Failing extensive course of nonoperative care is here for surgical intervention. Principal Diagnosis Lumbar spinal stenosis with neurogenic claudication Discharge Data Allergies Allergy/AdvReac Type Severity Reaction Status Date / Time No Known Allergies Allergy Verified 08/07/20 08:05 Consultations 08/07/20 14:17 Consult Hospitalist Routine Procedures Performed Operation Date: 08/07/20 09:35 Actual Procedures p L3-S1 Posterior Decompression and Fusion, Spinal Cord Monitoring(Not Applicable) - Thom Valverde DO Ordered Studies 08/07/20 09:35 FL lumbar spine 2-3V Routine Hospital Course (1) Neurogenic claudication due to lumbar spinal stenosis: Patient went lumbar decompression fusion tolerated so was taken to orthopedic for postoperative. Postop day 1 is up and ambulating grossly postoperative day 1 postop day 3 JANELL drain decreased appropriate. Pain well controlled. Subsequent discharge home. Discharge orders and instructions found the chart for further review. Total Time Total Time Spent Total Time Spent (In Minutes): 20 minutes Discharge Plan Discharge Items Patient Disposition: Home - Self-Care Reason For Visit: Other Intervertebral Disc Displacement Discharge Diagnosis: Lumbar spinal stenosis with neurogenic claudication Activity: As commented below Non-emergency contact: Primary Care Provider Call non-emergency contact if: you have any medication questions Follow-up/Referrals: Kusum Brooke MD [Primary Care Provider] - Diet: Regular Addtl Attending Provider Instructions: ACTIVITY RECOMMENDATIONS: SELF CARE INSTRUCTIONS AFTER THORACIC/LUMBAR FUSIONS 1. You may walk to your tolerance. It is good exercise for your legs and back. Expect some back and intermittent leg aches and pains. 2. You may perform "counter-top" level activities (make a sandwich, senia with a project, etc.). 3. No bending or lifting of more than 10 pounds or back twisting of any nature (roll like a log when turning in bed). 4. You may ride in a car for 20-30 minutes at a time. No driving until after your first visit with your doctor. 5. Frequent changes of position and restricting sitting to 30 minutes at a time will help limit the amount of back spasms and stiffness you may experience. 6. You may discontinue the use of ambulatory aids (cane, crutches, etc.) once your strength and confidence allow. 7. You may shopper insights manager the shower and let water strike your incision when you arrive home at least once daily. Do not take a tub bath, sit in a hot tub or go into a swimming pool until after your first recheck in the office. SPECIAL CARE INSTRUCTIONS: VERY IMPORTANT TO READ AND REVIEW A. Your surgical incision has been closed with a cosmetic suture under the skin that will dissolve in about 6 weeks. In 14 days, you can use a pair of clean scissors and cut the suture that is left outside of the skin at the ends of your incision. 1. The small skin tapes can be removed 7 days after surgery if they have not fallen off by that point. 2. You may keep the wound open to air as much as possible to promote healing after post-op day number 5 unless told otherwise by your doctor. 3. If you think the wound looks like it is becoming infected (redness or worsening drainage) and/or you are experiencing fever, chill or worsening back pain and muscle spasms, contact the office so that we may evaluate you as soon as possible. B. Complications are uncommon, but please contact us if you have any signs or symptoms of: 1. wound infection (fever higher than 102.5 degrees F, redness, separation of wound, drainage, or increasing pain from the incision) 2. blood clots in legs (pain, swelling, redness and warmth in legs) 3. urinary tract infection (fever higher than 102.5 degrees F, burning upon urination or increased frequency of urination) 4. nerve problems (inability to walk on your toes or heels, numbness, loss of bowel or bladder control) 5. any other symptoms that concern you C. Please call the office at if you have any concerns or quest ions about your operation or recovery. D. No smoking! Smoking drastically decreases the chance of a solid fusion. E. Do not take any anti-inflammatory medications (Indocin, Advil, Motrin, Aspirin, Naprosyn, etc.) as these may inhibit the chance of a solid fusion. Tylenol is okay to take for pain. MANAGING PAIN AFTER SPINAL SURGERY 1. Narcotic medication is intended for short-term use and will be provided for surgical pain. Surgical pain usually lasts for a period of 4-6 weeks. Narcotic medication includes Percocet, Vicodin, Darvocet, Tylenol #3 or Lortab. 2. Longer-term pain is more appropriately treated with non-narcotic medication such as Tylenol ES. 3. Muscle spasm is not appropriately treated with narcotics. Muscle relaxers such as Soma, Flexeril or Skelaxin can be used along with Tylenol ES. 4. Remember that we all live with some "aches and pains". This is not unusual or uncommon after an injury or as we get older. a. Back pain is expected and may include muscle spasms for 4 to 6 weeks after surgery. The pain should gradually improve. If the pain worsens for no apparent reason, please contact the office. b. Intermittent leg pain may also be experienced and should not be concerned about unless it worsens for no apparent reason. If so, please contact the office. 5. We will provide appropriate medication within the normal guidelines of their prescribed use. We will also be very cautious and aware of potential abuse and extended duration of patients' medication needs. a. Pain medications are for your comfort and to assist with sleep and rest so that the tissue can heal. They are not provided in order to return to normal activity and should not be used through the day. To do so or worsening pain at night can result from ongoing tissue damage and development of tolerance to the prescribed medicine. 6. Please allow 2-3 days to process refills. Prescriptions will not be mailed but must be picked up at the office. FOLLOW UP VISIT: Keep your scheduled follow-up appointment. Any questions, please call the office at . Pending Studies at Discharge: No Stand-Alone Forms: My [facility], Smoking Cessation Medications and [place] Order Prescriptions: New oxycodone 5 mg tablet 5 mg PO Q6H PRN (Reason: pain, severe) Qty: 30 RF: 0 tramadol 50 mg tablet 50 mg PO Q6H PRN (Reason: pain, moderate) Qty: 30 RF: 0 Continued atorvastatin 10 mg Tablet 10 mg PO QAM RF: 0 levothyroxine 150 mcg Tablet 150 mcg PO QAM RF: 0 metoprolol tartrate 25 mg Tablet 12.5 mg PO BID RF: 0 multivitamin Tablet 1 tab PO QAM RF: 0 warfarin 5 mg Tablet 5 mg PO PM RF: 0 lisinopril 5 mg Tablet 5 mg PO PM RF: 0 Discharge Orders: Discharge Order (Routine); Ordered 08/10/20 Ordered By: Thom Pearce/Other Patient Handouts: Prediabetes, 5 Steps for Eating Healthier, A1C Admission Data Admit Date/Time: 08/07/20 13:04 Attending Provider: Thom Valverde Admit Provider: Thom Valverde Primary Care Provider: Kusum Brooke Other Providers: Priscilla Ansari ; Madi Munoz
--- NOTE | 2020-08-10 11:56 | Hospitalist Progress Note ---
Date of Service August 10, 2020 Assessment & Plan (1) Neurogenic claudication due to lumbar spinal stenosis: POD #3 wound care, anticoagulation and activity as per Ortho Pain meds pain medication to avoid developing Ileus Continue incentive spirometry, PT/OT when appropriate Bowel regimen (2) Acute blood loss as cause of postoperative anemia: Hgb 10.8 Asymptomatic Continue to monitor with daily CBC (3) Constipation: Continue bowel regimen (4) Atrial fibrillation: Held coumadin prior to surgery Continue Coumadin Monitor INR Continue metoprolol (5) NICM (nonischemic cardiomyopathy): Continue atorvastatin, lisinopril, metoprolol Hx of cardioversion in Feb 2020 Last echo from 06/14/20 with EF of 40-44%, inferior wall appears thinned and moderately hypokinetic, remaining left ventricular wall segments are mildly hypokinetic. Mild mitral regurg, mild tricuspid regurg, mild aortic valv regurg, left ventricular diastolic dysfunction mildly abnormal Follows cardiology as outpatient (6) Hyperlipidemia: Cont statin (7) Prediabetes: A1c 6.3 on 08/08/20 Glucose on BMP is slightly elevated, likely secondary to steroid given intraoperatively but improving- BSG this morning 107 Discussed diet and exercise after surgery at length, patient has gained 15-20 lbs in past 15 mo Carb consistent diet (8) CKD (chronic kidney disease): Cr baseline of 1.2-1.3 Continue lisinopril Monitor BMP (9) Hypothyroidism: On levothyroxine 150 mcg daily, TSH from 06/20/20 was 0.82 (10) BPH (benign prostatic hyperplasia): 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, 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 (11) DVT prophylaxis: coumadin CODE STATUS: FULL CODE Admission and Anticipated Discharge Date Admission Date: August 07, 2020 Subjective Patient is seen and examined at bedside Back pain is controlled Had small bowel movement Denies chest pain, shortness breath, dizziness, nausea, abdominal pain Plan to be discharged home today Review of Systems Review of Systems: All systems reviewed & are unremarkable except as noted in HPI & below Physical Exam Physical Exam: Physical Exam: Vitals signs as noted above General Appearance:Moderately built and nourished, no apparent distress Head: normocephalic, Atraumatic Eyes: normal inspection, EOMI Neck: supple, Trachea midline Respiratory/Chest: Normal breath sounds, CTA Cardiovascular: S1, S2, + murmur Abdomen/GI:Soft, Non tender, Bowel sounds present Extremities/Musculoskeletal:normal inspection, no edema Back: Surgical site in dressing Neurologic/Psych:AAOX3, grossly no focal neurological deficits Skin: normal color, warm Results & Data Results & Data ([facility]) Vital Signs (Past 12 Hours) Vital Signs Temp Pulse Resp BP Pulse Ox 08/10/20 06:36 36.3 C L 81 22 145/74 H 98 Laboratory Results Short CBC 08/10/20 Range/Units 06:14 WBC 15.26 H (4.8-10.8) K/uL Hgb 10.8 L (14.0-18.0) g/dL Hct 31.7 L (42-52) % Plt Count 190 (130-400) K/uL BMP 08/10/20 06:14 Sodium 138 Potassium 4.5 Chloride 108 H Carbon Dioxide 24 BUN 26 H Creatinine 1.11 Glucose 135 H Calcium 8.2 L
--- NOTE | 2020-08-16 12:30 | Coding Query ---
CODING QUERY To promote full compliance with coding requirements relating to patient care, provider participation is requested in all cases of peanut farmer uncertainty. Please assist us with the question(s) below: Coding Question(s): Patient s/p back fusion. 700 EBL . Progress notes mention acute blood loss anemia. H/H 10.8, 11.2 with patient asymptomatic. Please check below the phrase that describes the Acutee blood loss anemia. Thanks for your assistance! Hernandez Spivey [facility] Physician's Response(s): ___x____ the acute blood loss anemia was an expected outcome after surgery. the acute blood loss was not expected outcome of surgery. Cannot clinically correlate if the acute blood loss anemia was expected outcome of surgery. Other: Please document: Principal Diagnosis: "that condition established after study, to be chiefly responsible for occasioning the admission of the patient to the hospital for care." Co-Existing Principal Diagnosis: "when two or more diagnoses equally meet the criteria for principal diagnosis as determined by the circumstances of admission, diagnostic work up, and/or therapy provided, and the Alphabetic Index, Tabular List, or another coding guideline does not provide sequencing direction, any one of the diagnoses may be sequenced first." "When the physician has documented what appears to be a current diagnosis in the body of the record, but has not included the diagnosis in the final diagnostic statement, the physician should be asked whether the diagnosis should be added." (Source Coding Clinic 2 QTR90. p3-4) LEON
== END 2020-08-10 11:49 | disposition home or self-care (01) ==
LOC: PAT 07:46 → 3E 13:04

== ENCOUNTER 2021-09-18 18:01 | Inpatient (IN) ==
[2021-09-18] MEDS ORDERED: SODIUM CHLORIDE 0.9% 500 ML IV ONE (18:20)
--- NOTE | 2021-09-18 18:20 | Emergency Department Note ---
Impression & Plan Atrial flutter with rapid ventricular response, Elevated troponin ED Provider Note NAME: RAKAN PRUITT AGE: 71 SEX: M : 1950 ARRIVES VIA: Walk-In INFORMANT: Patient ED PROVIDER(S): Jason Glynn DO CHIEF COMPLAINT: abnormal EKG HPI: Patient is a 71-year-old male with a past medical history of A. fib on Coumadin, nonischemic cardiomyopathy, hyperlipidemia, BPH who presents the ER for abnormal EKG. He notes about 2 weeks ago he was seen by cardiology and found to be in A. fib. He has a history of paroxysmal A. fib. He has been cardioverted previously. I had a repeat EKG scheduled for today. He notes his heart rate has been fluctuating for about the past week. He was referred over and is unsure why. He denies any headache or change in vision. No chest pain or shortness of breath. No nausea, vomiting, diarrhea or any abdominal pain. N o dysuria, urgency, or frequency. No other exacerbating factors. ROS: See above HPI for pertinent positives & negatives. A total of 10 systems reviewed and were otherwise negative. PAST MEDICAL HISTORY:See Below PAST SURGICAL HISTORY:See Below FAMILY HISTORY:See Below SOCIAL HISTORY:See Below HOME MEDICATIONS:See Below ALLERGIES:See Below VITALS:See Below PHYSICAL EXAMINATION: GENERAL: Sitting up in bed, alert, well appearing, well nourished, no distress, non-toxic EYE EXAM: normal conjunctiva. OROPHARYNX: no exudate, no erythema, lips, buccal mucosa, and tongue normal and mucous membranes are moist NECK: supple, no nuchal rigidity, no adenopathy, non-tender LUNGS: Clear to auscultation. Normal chest wall mechanics HEART: no murmurs, S1 normal and S2 normal ABDOMEN: abdomen soft, non-tender, normo-active bowel sounds, no masses, no rebound or guarding. BACK: Back is symmetrical on inspection and there is no deformity, no midline tenderness, no CVA tenderness. SKIN: no rashes and no bruising UPPER EXTREMITIES: upper extremities are grossly normal. LOWER EXTREMITIES: No pitting edema. NEURO EXAM: Normal sensorium, cranial nerves II-XII grossly intact, normal speech, no gross weakness of arms, no gross weakness of legs. MEDICAL DECISION MAKING: Patient is a 71-year-old male who presents ER for the boasting complaint. IV was established blood work was obtained. Labs show no significant leukocytosis or anemia. INR 2.6. BMP slightly low CO2 at 20. LFTs bilirubin was unremarkable. Troponin was elevated at 22.3. Lipase was normal. TSH was unremarkable. COVID was negative. Chest x-ray was unremarkable. EKG confirmed atrial flutter with RVR. Patient was updated bedside. Given 1 dose of Lopressor as heart rate trended down to the 90s. He was updated bedside. He did get nauseated and was given some Zofran as well. Discussed with hospitalist Dr. Eliceo Patel for further evaluation. Triage Nursing notes reviewed. Limited review of prior medical records performed Vital Signs: reviewed and remarkable for HTN and tachy Differential diagnosis: Differential diagnoses includes but is not limited to acute coronary syndrome, myocardial infarction, pericarditis, pulmonary embolus, aortic dissection, pneumonia, pneumothorax, musculoskeletal, shingles, esophageal. ER treatment provided: See below Diagnostics interpreted by me: ECG: Atrial flutter rate of [address] depressions in the inferior leads QTC 471 Cardiac Monitoring: An order was placed for continuous cardiac monitoring. The monitor shows a rate of 120 with atrial flutter rhythm. Laboratory studies: As stated above and show below. Imaging studies: Portable AP upright 1 view of the chest unremarkable Consultation(s): none Procedures: none Critical Care: None Past Med/Surg History Medical History Anxiety no meds at present Atrial fibrillation dx fall 2019 > Metoprolol/Warfarin > cardioversion x1 BPH (benign prostatic hyperplasia) Chronic back pain CKD (chronic kidney disease) Per records- Stage 3 Hyperlipidemia Hypothyroidism NICM (nonischemic cardiomyopathy) EF 40-45% on 05/2020 ECHO Lisinopril for this, not HTN per pt Osteoarthritis Prediabetes Per records Surgical History History of cardiac cath no stents > Apr 2020 > [facility] History of cardioversion Feb 2020 History of cataract surgery bilat History of colonoscopy History of prostate surgery for enlargement History of tonsillectomy History of tooth extraction History of total hip arthroplasty bilat Family History Mother Stroke Social History Smoking Status: Never smoker Second Hand Exposure: No; Hx Alcohol Use: Yes Alcohol type: beer, wine and hard liquor Hx Substance Use: No Preferred Language: Haitian Communication Ability: Effective Block Operator Required: No Beliefs That Will Affect Care: None marital status: Current Living Situation: Spouse Feels Safe at Home: Yes Assistive Devices: Glasses Allergies Allergies Allergy/AdvReac Type Severity Reaction Status Date / Time No Known Allergies Allergy Verified 09/18/21 18:58 Home Meds Home Medications Medication Instructions Recorded Confirmed atorvastatin 10 mg tablet 10 mg PO QAM 03/09/20 09/18/21 levothyroxine 150 mcg tablet 150 mcg PO QAM 03/09/20 09/18/21 multivitamin 1 tab PO QAM 03/09/20 09/18/21 lisinopril 5 mg tablet 5 mg PO QAM 07/16/20 09/18/21 warfarin 5 mg tablet See Rx Instructions .ROUTE .COMPLEX 07/16/20 09/18/21 metoprolol succinate 25 mg 25 mg PO QAM 09/18/21 09/18/21 tablet,extended release 24 hr Results & Data (ED) Vital Signs Vital Signs - 24 hr 09/18/21 18:02 09/18/21 18:24 09/18/21 20:02 Temperature 36.7 C Temperature Source Temporal Artery Scan Pulse Rate 120 H 105 H Pulse Rate [Apical] 105 H 117 H Pulse Rhythm [Apical] Irregular Regular Pulse Strength [Apical] Normal Respiratory Rate 20 18 18 Respiratory Effort / Characteristics Non-Labored Spontaneous Respiratory Depth Normal Normal Respiratory Pattern Regular Blood Pressure 143/87 H Blood Pressure [Left Arm] 134/77 156/109 H Blood Pressure Mean 105 Blood Pressure Mean [Left Arm] 96 124 Blood Pressure Position Sitting Blood Pressure Position [Left Arm] Sitting Pulse Oximetry 96 96 98 Oxygen Delivery Method Room Air Room Air Room Air Sepsis Recent Fever Within 48 Hours No Sepsis New/Unexplained Change in Mental Status No Sepsis Action Taken by Nursing No Action Required 09/18/21 20:39 09/18/21 22:20 Temperature Temperature Source Pulse Rate 119 H 117 H Pulse Rate [Apical] Pulse Rhythm [Apical] Pulse Strength [Apical] Respiratory Rate Respiratory Effort / Characteristics Respiratory Depth Respiratory Pattern Blood Pressure 176/128 H 158/110 H Blood Pressure [Left Arm] Blood Pressure Mean Blood Pressure Mean [Left Arm] Blood Pressure Position Blood Pressure Position [Left Arm] Pulse Oximetry Oxygen Delivery Method Sepsis Recent Fever Within 48 Hours Sepsis New/Unexplained Change in Mental Status Sepsis Action Taken by Nursing Laboratory Data Result diagrams: 09/18/21 18:30 09/18/21 18:30 Lab Results 09/18/21 09/18/21 09/18/21 Range/Units 18:29 18:30 18:30 WBC 6.77 (4.8-10.8) K/uL RBC 4.97 (4.7-6.1) M/uL Hgb 15.8 (14.0-18.0) g/dL Hct 46.3 (42-52) % MCV 93.2 (80-100) fL MCH 31.8 (25-34) pg MCHC 34.1 (32-36) g/dL RDW Std Deviation 46.3 (36.4-46.3) fL RDW Coeff of Hi 13.6 (11.5-14.5) % Plt Count 226 (130-400) K/uL MPV 9.6 (7.4-10.4) fL Immature Gran % (Auto) 0.3 % Neut % (Auto) 49.3 % Lymph % (Auto) 40.2 % Dewitt % (Auto) 8.0 % Eos % (Auto) 1.6 % Baso % (Auto) 0.6 % Neut # (Auto) 3.34 (1.4-6.5) K/uL Lymph # (Auto) 2.72 (1.2-3.4) K/uL Dewitt # (Auto) 0.54 (0.11-0.59) K/uL Eos # (Auto) 0.11 (0-0.5) K/uL Baso # (Auto) 0.04 (0-0.2) K/uL Immature Gran # (Auto) 0.02 (0.00-0.02) K/uL PT (9.0-12.0) Seconds INR (0.9-1.1) Sodium 139 (136-145) mmol/L Potassium 4.4 (3.5-5.1) mmol/L Chloride 110 H (98-107) mmol/L Carbon Dioxide 20 L (21-32) mmol/L Anion Gap 9 (3-11) BUN 35 H (6-23) mg/dl Creatinine 1.25 (0.6-1.4) mg/dl Est Cr Clr Drug Dosing 68.8 ml/min Est GFR ( Amer) 66.3 ml/min Est GFR (Non-Af Amer) 57.2 ml/min BUN/Creatinine Ratio 28.0 H (10-20) Glucose 85 (70-99(Fasting)) mg/dl Calcium 9.3 (8.5-10.1) mg/dl Magnesium (1.7-2.4) mg/dl Total Bilirubin 0.6 (0.2-1.0) mg/dl AST 29 (13-39) U/L ALT 27 (7-52) U/L Alkaline Phosphatase 89 (34-104) U/L Troponin I High Sens 22.3 H (0-20) pg/ml Total Protein 6.9 (6.0-8.3) gm/dl Albumin 4.5 (3.4-5.0) gm/dl Globulin 2.4 L (2.5-4.0) gm/dl Albumin/Globulin Ratio 1.9 (0.9-2) Lipase 38 (11-82) U/L TSH (0.300-4.500) uIu/ml SARS-CoV-2, RNA, NAAT NEGATIVE (NEGATIVE) 09/18/21 09/18/21 09/18/21 Range/Units 18:30 18:30 18:30 WBC (4.8-10.8) K/uL RBC (4.7-6.1) M/uL Hgb (14.0-18.0) g/dL Hct (42-52) % MCV (80-100) fL MCH (25-34) pg MCHC (32-36) g/dL RDW Std Deviation (36.4-46.3) fL RDW Coeff of Hi (11.5-14.5) % Plt Count (130-400) K/uL MPV (7.4-10.4) fL Immature Gran % (Auto) % Neut % (Auto) % Lymph % (Auto) % Dewitt % (Auto) % Eos % (Auto) % Baso % (Auto) % Neut # (Auto) (1.4-6.5) K/uL Lymph # (Auto) (1.2-3.4) K/uL Dewitt # (Auto) (0.11-0.59) K/uL Eos # (Auto) (0-0.5) K/uL Baso # (Auto) (0-0.2) K/uL Immature Gran # (Auto) (0.00-0.02) K/uL PT 26.6 H (9.0-12.0) Seconds INR 2.6 H (0.9-1.1) Sodium (136-145) mmol/L Potassium (3.5-5.1) mmol/L Chloride (98-107) mmol/L Carbon Dioxide (21-32) mmol/L Anion Gap (3-11) BUN (6-23) mg/dl Creatinine (0.6-1.4) mg/dl Est Cr Clr Drug Dosing ml/min Est GFR ( Amer) ml/min Est GFR (Non-Af Amer) ml/min BUN/Creatinine Ratio (10-20) Glucose (70-99(Fasting)) mg/dl Calcium (8.5-10.1) mg/dl Magnesium 2.2 (1.7-2.4) mg/dl Total Bilirubin (0.2-1.0) mg/dl AST (13-39) U/L ALT (7-52) U/L Alkaline Phosphatase (34-104) U/L Troponin I High Sens (0-20) pg/ml Total Protein (6.0-8.3) gm/dl Albumin (3.4-5.0) gm/dl Globulin (2.5-4.0) gm/dl Albumin/Globulin Ratio (0.9-2) Lipase (11-82) U/L TSH 1.488 (0.300-4.500) uIu/ml SARS-CoV-2, RNA, NAAT (NEGATIVE) Administered Medications Promethazine HCl 12.5 mg/ (Sodium Chloride) 50.5 mls @ 202 mls/hr IV Q6H PRN PRN Reason: Nausea And Vomiting Stop: 10/18/21 21:08 Last Admin: 09/18/21 22:07 Dose: 202 mls/hr Documented by: [id number] Metoprolol Tartrate (Metoprolol Tartrate 1 Mg/Ml Vial) 5 mg IV Q5M PRN PRN Reason: Tachycardia Stop: 10/18/21 20:30 Last Admin: 09/18/21 20:39 Dose: 5 mg Documented by: [id number] Discontinued Medications Sodium Chloride (Nss) 500 mls @ 999 mls/hr IV .Q31M ONE Stop: 09/18/21 18:50 Last Infusion: 09/18/21 19:53 Dose: 0 mls/hr Documented by: [id number] Admin: 09/18/21 18:39 Dose: 999 mls/hr Documented by: [id number] Acetaminophen (Ofirmev) 1,000 mg in 100 mls @ 400 mls/hr IV NOW STA Stop: 09/18/21 21:26 Last Infusion: 09/18/21 22:01 Dose: 0 mls/hr Documented by: [id number] Admin: 09/18/21 21:20 Dose: 400 mls/hr Documented by: [id number] Metoprolol Tartrate (Metoprolol Tartrate 1 Mg/Ml Vial) 2.5 mg IV NOW STA Stop: 09/18/21 21:37 Last Admin: 09/18/21 22:20 Dose: 2.5 mg Documented by: [id number] Ondansetron HCl (Ondansetron Inj 2 Mg/Ml 2 Ml Vial) 4 mg IV NOW STA Stop: 09/18/21 20:32 Last Admin: 09/18/21 20:39 Dose: 4 mg Documented by: [id number] Imaging Data Radiologist's Impression: Chest X-Ray 09/18/21 18:14 XR chest 1V portable HISTORY: 71 years-old Male Chest Pain acute atypical chest pain COMPARISON: Chest radiograph 05/09/2014 TECHNIQUE: Portable AP view of the chest FINDINGS: The cardiac silhouette is upper limits of normal in size. There is no pneumothorax, pleural effusion, airspace consolidation or overt pulmonary edema. Degenerative changes of the shoulders and spine. Mild linear subsegmental atelectasis versus scarring of the lateral left lung base. IMPRESSION: No acute process. ACT 112: Negative or not required by law. The above report was generated using voice recognition software. It may contain grammatical, syntax or spelling errors. Electronically signed by: Felipe Tovar M.D. 09/18/2021 6:49 PM Discharge Plan Visit Data Chief Complaint: Abnormal Labs/Diagnostic Testing Stated Complaint: ABNORMAL EKG.SENT OVER BY DR ED Provider: Jason Glynn Discharge Problem: Atrial flutter with rapid ventricular response, Elevated troponin Forms Stand Alone Forms: My [facility] Prescriptions Prescriptions: No Action atorvastatin 10 mg Tablet 10 mg PO QAM RF: 0 levothyroxine 150 mcg Tablet 150 mcg PO QAM RF: 0 multivitamin Tablet 1 tab PO QAM RF: 0 metoprolol succinate 25 mg tablet extended release 24 hr 25 mg PO QAM RF: 0 warfarin 5 mg Tablet See Rx Instructions .ROUTE .COMPLEX RF: 0 lisinopril 5 mg Tablet 5 mg PO QAM RF: 0 Referrals Referrals: Erin Brooke MD [Primary Care Provider] -
--- NOTE | 2021-09-18 18:50 | XRay Report ---
XR chest 1V portable HISTORY: 71 years-old Male Chest Pain acute atypical chest pain COMPARISON: Chest radiograph 05/09/2014 TECHNIQUE: Portable AP view of the chest FINDINGS: The cardiac silhouette is upper limits of normal in size. There is no pneumothorax, pleural effusion, airspace consolidation or overt pulmonary edema. Degenerative changes of the shoulders and spine. Mi ld linear subsegmental atelectasis versus scarring of the lateral left lung base. IMPRESSION: No acute process. ACT 112: Negative or not required by law. The above report was generated using voice recognition software. It may contain grammatical, syntax o r spelling errors. Electronically signed by: Felipe Tovar M.D. 09/18/2021 6:49 PM
[2021-09-18 18:56] LABS: Basophils # (auto) 0.04 K/uL (0-0.2); Basophils % (auto) 0.6 %; Eosinophils # (auto) 0.11 K/uL (0-0.5); Eosinophils % (auto) 1.6 %; Hematocrit (blood only) 46.3 % (42-52); Hemoglobin 15.8 g/dL (14.0-18.0); Immature Granulocytes # (auto) 0.02 K/uL (0.00-0.02); Immature Granulocytes % (auto) 0.3 %; Lymphocytes # (auto) 2.72 K/uL (1.2-3.4); Lymphocytes % (auto) 40.2 %; Mean Corpuscular Hemoglobin 31.8 pg (25-34); Mean Corpuscular Hgb Conc 34.1 g/dL (32-36); Mean Corpuscular Volume 93.2 fL (80-100); Mean Platelet Volume 9.6 fL (7.4-10.4); Monocytes # (auto) 0.54 K/uL (0.11-0.59); Neutrophils # (auto) 3.34 K/uL (1.4-6.5); Neutrophils % (auto) 49.3 %; Platelet Count 226 K/uL (130-400); RDW Coefficient of Variation 13.6 % (11.5-14.5); RDW Standard Deviation 46.3 fL (36.4-46.3); Red Blood Count 4.97 M/uL (4.7-6.1); White Blood Count 6.77 K/uL (4.8-10.8)
[2021-09-18 19:26] LABS: Troponin I High Sensitivity 22.3 pg/ml (0-20)
[2021-09-18] MEDS ORDERED: ONDANSETRON INJ 2 MG/ML 2 ML VIAL IV STA (20:31)
[2021-09-18] MEDS ORDERED: METOPROLOL TARTRATE 1 MG/ML VIAL IV PRN (20:31)
[2021-09-18 20:41] LABS: INR 2.6 (0.9-1.1); Prothrombin Time 26.6 Seconds (9.0-12.0)
[2021-09-18 20:44] LABS: Albumin Globulin Ratio 1.9 (0.9-2); Albumin Level 4.5 gm/dl (3.4-5.0); Bilirubin,Total 0.6 mg/dl (0.2-1.0); Calcium 9.3 mg/dl (8.5-10.1); Creatinine Clr Calc Pharmacy 68.8 ml/min; Est GFR (African American) 66.3 ml/min; Est GFR (Non-African American) 57.2 ml/min; Globulin 2.4 gm/dl (2.5-4.0); Potassium 4.4 mmol/L (3.5-5.1); Total Protein 6.9 gm/dl (6.0-8.3)
[2021-09-18] MEDS ORDERED: METOPROLOL SUCC 50MG EXT REL TAB PO STA (20:44)
[2021-09-18] MEDS ORDERED: SODIUM CHLORIDE 0.9% 1000ML 1,000 ML IV STA (21:04)
[2021-09-18] MEDS ORDERED: PROMETHAZINE HCL 12.5 MG in SODIUM CHLORIDE 0.9% 50 ML IV PRN (21:09)
[2021-09-18] MEDS ORDERED: ACETAMINOPHEN 1,000 MG/100 ML VIAL IV STA (21:12)
--- NOTE | 2021-09-18 21:28 | History & Physical Report ---
Date of Service September 18, 2021 Assessment & Plan (1) Atrial flutter with rapid ventricular response: (2) Nausea: (3) RUQ abdominal pain: Plan: Please refer to Dr. Ray's addendum for assessment and plan. History of Present Illness Chief Complaint: Referred by twisting frame fixer for a. flutter Primary Care Provider: Erin Brooke MD 71 year old male with PMH hypothyroidism, paroxysmal atrial fibrillation and flutter, nonischemic cardiomyopathy with subsequent normalization of EF, mild nonobstructive CAD, CKD stage III, BPH, spinal stenosis, and other problems listed below who presents to the ED by referral of cardiology for evaluation of atrial flutter with RVR. Patient reports an elevated heart rate for the past couple of weeks. He has had mild exertional shortness of breath. Patient had an EKG performed today as an outpatient to demonstrate atrial flutter with RVR and was referred to the ED for further evaluation. Patient denies chest pain palpitations. No lightheadedness, dizziness, diaphoresis, syncopal events. Denies urinary symptoms. While in the ED, patient developed right flank pain wrapping around to the right upper quadrant with associated nausea and dry heaves. Patient reports chronic back pain for which he usually takes Tylenol daily for. Reports pain is typically located mid back. Patient reports a normal bowel movement this morning. No recent fevers or chills. In the ED, EKG shows atrial flutter rate 114. Labs are unremarkable. Patient was given IV metoprolol 5 mg, IVF, IV Zofran. Allergies Allergy/AdvReac Type Severity Reaction Status Date / Time No Known Allergies Allergy Verified 09/18/21 18:58 Home Medications Medication Instructions Recorded Confirmed Type atorvastatin 10 mg tablet 10 mg PO QAM 03/09/20 09/18/21 History levothyroxine 150 mcg tablet 150 mcg PO QAM 03/09/20 09/18/21 History multivitamin 1 tab PO QAM 03/09/20 09/18/21 History lisinopril 5 mg tablet 5 mg PO QAM 07/16/20 09/18/21 History warfarin 5 mg tablet See Rx Instructions .ROUTE .COMPLEX 07/16/20 09/18/21 History metoprolol succinate 25 mg 25 mg PO QAM 09/18/21 09/18/21 History tablet,extended release 24 hr Past Med/Surg History Medical History Anxiety no meds at present Atrial fibrillation dx fall 2019 > Metoprolol/Warfarin > cardioversion x1 BPH (benign prostatic hyperplasia) Chronic back pain CKD (chronic kidney disease) Per records- Stage 3 Hyperlipidemia Hypothyroidism NICM (nonischemic cardiomyopathy) EF 40-45% on 05/2020 ECHO Lisinopril for this, not HTN per pt Osteoarthritis Prediabetes Per records Surgical History History of cardiac cath no stents > Apr 2020 > [facility] History of cardioversion Feb 2020 History of cataract surgery bilat History of colonoscopy History of prostate surgery for enlargement History of tonsillectomy History of tooth extraction History of total hip arthroplasty bilat Family History Mother Stroke Social History Smoking Status: Never smoker Second Hand Exposure: No; Hx Alcohol Use: Yes Alcohol type: beer Hx Substance Use: No Preferred Language: Greenlandic Communication Ability: Effective Associate Of Science In Nursing Required: No Beliefs That Will Affect Care: None marital status: Current Living Situation: Spouse Other Information That Helps Us Care for You: No Feels Safe at Home: Yes Safety Concerns: Feels Safe At This Time Assistive Devices: Glasses Review of Systems Review of Systems: ROS per HPI, all other systems reviewed and negative Physical Exam Constitutional: WD/WN, vitals as above Restless, dry heaving Eyes: PERRL, conjunctivae normal, anicteric sclerae ENMT: external ear and nose normal, oropharynx normal Respiratory: normal respiratory effort, lungs clear to auscultation Cardiovascular: Rate/Rhythm: regular rhythm and + tachycardic Vessels: normal peripheral pulses Extremities: no edema Gastrointestinal (Abdomen): Inspection/Auscultation: normal bowel sounds Percussion/Palpation: + abdomen tender (RUQ) and abdomen soft; no hepatosplenomegaly Musculoskeletal: no cyanosis or clubbing, extremities motor strength 5/5 Skin: no rashes, warm and dry Neurologic: PERRL, EOMI, accommodation nl, no face palsy, no dysarthria Psychiatric: A+Ox3, euthymic affect Results & Data Results & Data ([facility]) Vital Signs (Past 12 Hours) Vital Signs Temp Pulse Pulse Resp BP BP Pulse Ox 09/18/21 20:39 119 H 176/128 H 09/18/21 20:02 117 H 18 156/109 H 98 09/18/21 18:24 105 H 105 H 18 134/77 96 09/18/21 18:02 36.7 C 120 H 20 143/87 H 96 Laboratory Results Short CBC 09/18/21 Range/Units 18:30 WBC 6.77 (4.8-10.8) K/uL Hgb 15.8 (14.0-18.0) g/dL Hct 46.3 (42-52) % Plt Count 226 (130-400) K/uL BMP 09/18/21 18:30 Sodium 139 Potassium 4.4 Chloride 110 H Carbon Dioxide 20 L BUN 35 H Creatinine 1.25 Glucose 85 Calcium 9.3 Liver Function 09/18/21 Range/Units 18:30 Total Bilirubin 0.6 (0.2-1.0) mg/dl AST 29 (13-39) U/L ALT 27 (7-52) U/L Alkaline Phosphatase 89 (34-104) U/L Albumin 4.5 (3.4-5.0) gm/dl Diagnostic Findings Chest X-Ray 09/18/21 18:14 XR chest 1V portable HISTORY: 71 years-old Male Chest Pain acute atypical chest pain COMPARISON: Chest radiograph 05/09/2014 TECHNIQUE: Portable AP view of the chest FINDINGS: The cardiac silhouette is upper limits of normal in size. There is no pneumo thorax, pleural effusion, airspace consolidation or overt pulmonary edema. Degenerative changes of the shoulders and spine. Mild linear subsegmental atelectasis versus scarring of the lateral left lung base. IMPRESSION: No acute process. ACT 112: Negative or not required by law. The above report was generated using voice recognition software. It may contain grammatical, syntax or spelling errors. Electronically signed by: Felipe Tovar M.D. 09/18/2021 6:49 PM Supervising Physician Co-Signing Physician Notes IM ATTENDING : Patient seen and examined. History obtained from patient, family, and records. Preceding documentation by JAMAICA Winkler reviewed. In addition, CT abdomen pelvis initial read as follows : Mild right hydroureteronephrosis. Adistal right ureteral stone near the right UVJ is suspected, but difficult to fullyevaluate due to artifact fromhip arthroplasties. Phleboliths in the pelvis. No hydronephrosis or obstructing stone on the left. Nonspecific 2 mmnodule in the left lower lobe. Evaluation of the stomach is limited byunderdistention. Hepatic steatosis. Normal appendix. Diverticulosiswithout evidence of diverticulitis. No small bowel obstruction. Atherosclerotic changes of the vasculature. No aortic aneurysmor dissection. Postsurgical changes of the spine fromL3-S1. Small fat-containing umbilical hernia FINAL ASSESSMENT AND PLAN as follows : Recurrent atrial flutter on Coumadin hx cardioversion Uncontrolled rate secondary to uncontrolled BP and discomfort from obstructive uropathy INR therapeutic Troponin elevation secondary to illness history nonischemic cardiomyopathy, EF 55%, TTE 2020, patient on the dry side History CAD as per records Hypothyroidism, euthyroid as of today's TSH Prediabetes, hemoglobin A1c of 6.23 March 2021 Hyperlipidemia on statin Rx PCU Titrate home beta-phong Follow troponin, TTE if with progression Cardiology consult Re: Recurrent atrial flutter IVF, analgesia, Flomax trial, strain urine Urology consult Re: Kidney stone, obstructive uropathy N.p.o., until l patient seen by specialty services in a.m. In anticipation of procedure DVT prophylaxis. Coumadin INR goal between 2 and 3 Full code Patient requesting updates for providers. Ms. Carmita Browne, contact #[phone]. Text document was generated using [employer] voice recognition software. It may contain grammatical or spelling errors. Kindly contact undersigned for clarification of any documentation item in question.
[2021-09-18] MEDS ORDERED: METOPROLOL TARTRATE 1 MG/ML VIAL IV STA (21:36)
[2021-09-18] MEDS ORDERED: OPTIRAY 320 100ml IV ONE (22:39)
[2021-09-18] MEDS ORDERED: METOCLOPRAMIDE HCL INJ 5 MG/ML 2 ML VIAL IV STA (22:42)
[2021-09-18] MEDS ORDERED: METOPROLOL SUCC 50MG EXT REL TAB PO SCH (22:55)
[2021-09-18] MEDS ORDERED: ACETAMINOPHEN 325 MG TAB PO PRN (22:55)
[2021-09-18] MEDS ORDERED: MoRPHine SULFATE 4 MG/ML 1 ML CARP\\VIAL IV PRN (22:55)
[2021-09-18 23:03] LABS: Appearance Urine Clear (Clear); Bilirubin Urine Negative (Negative); Blood Urine Negative (Negative); Color Urine Dark Yellow; Glucose Urine UA Negative (Negative); Ketones Urine Trace (Negative); Leukocyte Esterase Urine Negative (Negative); Nitrite Urine Negative (Negative); Protein Urine Negative (Negative); Specific Gravity Urine 1.038 (1.000-1.030); Urobilinogen Urine Negative (Negative)
[2021-09-18] MEDS ORDERED: dilTIAZem HCl 5 MG/ML 5 ML VIAL IV STA (23:15)
[2021-09-18] MEDS ORDERED: MoRPHine SULFATE 2 MG/ML CARP IV STA (23:28)
[2021-09-19] MEDS ORDERED: TAMSULOSIN HCL 0.4 MG CAP PO ONE (01:24)
[2021-09-19] MEDS: SODIUM CHLORIDE 0.9% 1000ML 1,000 ML IV SCH ×4 (01:30→23:19)
[2021-09-19] MEDS: MoRPHine SULFATE 2 MG/ML CARP IV PRN ×2 (02:40→22:06)
[2021-09-19] MEDS: traMADol HCL 50 MG TABLET PO PRN ×3 (04:02→20:38)
--- NOTE | 2021-09-19 04:40 | Urology Consultation ---
Date of Consultation September 19, 2021 Assessment & Plan (1) Nephrolithiasis: Patient has been admitted to the hospitalist service. He is currently undergoing evaluation/treatment for his rapid heart rate. Concerning patient's suspected kidney stone we recommend proceeding as follows: Provide analgesics Provide antiemetics Provide IV fluid for hydration Continue Flomax for expulsive therapy -Implement n.p.o. status -Patient is noted to be afebrile with normal white blood cell count and a nonelevated creatinine. Therefore not feel an emergent urologic procedure is required at this time. We will keep him n.p.o. in the event that his kidney stone does not pass that he may require cystoscopy. Any urologic procedure will need to be coordinated with the care of his current cardiac issues which will take precedence. In addition the patient is noted to have therapeutic INR which may need to be addressed prior to any procedural intervention. Supervising Physician Co-Signing Physician Notes I have discussed Mr. Benjamin's case with Jah Fitch PA-C and agree with the above documentation. He has a suspected right ureteral stone with some hydronephrosis. Please keep n.p.o. for reevaluation on 09/19/2021. History of Present Illness Reason for Consultation: Nephrolithiasis Attending Physician: Madi Munoz MD History of Present Illness This is a 71-year-old male was referred to the emergency department by his c ardiology team secondary to a rapid heart rate. He was seen in the outpatient cardiology clinic where an EKG showed the patient had atrial flutter with rapid ventricular response. Patient denies any lightheadedness, chest pain, or syncope. The patient did note some pain in his right flank with radiation to his right abdomen. He denies any fevers, shakes, chills. He does note some nausea and v omiting. In addition the patient notes urinary frequency without dysuria or hematuria. He denies any prior history of kidney stones. Since admission the patient has had a CT scan of the abdomen and pelvis. There is a suspected distal right ureteral stone at the ureterovesical junction with associated hydronephrosis noted. He has also had labs which include a CBC her white blood cell count, hemoglobin, hematocrit, and platelet count were normal. His INR is noted to be 2.6. Chemistry profile shows sodium and potassium are both normal. BUN had a slight elevation at 35 and his creatinine was normal at 1.25. The patient has had cardiac enzymes checked and his troponin was initially 22.3 and has increased slightly to 30.9. Urinalysis was not indicative of infection. A COVID test was noted to be negative. At the time of my interview the patient was resting comfortably in bed and he is in no distress. Allergies Allergy/AdvReac Type Severity Reaction Status Date / Time No Known Allergies Allergy Verified 09/18/21 18:58 Home Medications Medication Instructions Recorded Confirmed Type atorvastatin 10 mg tablet 10 mg PO QAM 03/09/20 09/18/21 History levothyroxine 150 mcg tablet 150 mcg PO QAM 03/09/20 09/18/21 History multivitamin 1 tab PO QAM 03/09/20 09/18/21 History lisinopril 5 mg tablet 5 mg PO QAM 07/16/20 09/18/21 History warfarin 5 mg tablet See Rx Instructions .ROUTE .COMPLEX 07/16/20 09/18/21 History metoprolol succinate 25 mg 25 mg PO QAM 09/18/21 09/18/21 History tablet,extended release 24 hr Patient History Medical History Anxiety no meds at present Atrial fibrillation dx fall 2019 > Metoprolol/Warfarin > cardioversion x1 BPH (benign prostatic hyperplasia) Chronic back pain CKD (chronic kidney disease) Per records- Stage 3 Hyperlipidemia Hypothyroidism NICM (nonischemic cardiomyopathy) EF 40-45% on 05/2020 ECHO Lisinopril for this, not HTN per pt Osteoarthritis Prediabetes Per records Surgical History History of cardiac cath no stents > Apr [address] [facility] History of cardioversion Feb 2020 History of cataract surgery bilat History of colonoscopy History of prostate surgery for enlargement History of tonsillectomy History of tooth extraction History of total hip arthroplasty bilat Family History Mother Stroke Social History Smoking Status: Never smoker Second Hand Exposure: No; Hx Alcohol Use: Yes Alcohol type: beer Hx Substance Use: No Preferred Language: Trinidadian Communication Ability: Effective Sales And Service Engineer Required: No Beliefs That Will Affect Care: None marital status: Current Living Situation: Spouse Other Information That Helps Us Care for You: No Feels Safe at Home: Yes Safety Concerns: Feels Safe At This Time Assistive Devices: Glasses Review of Systems Constitutional: no fever and no chills Eyes: no eye pain Ear, Nose, Mouth, Throat: no ear pain Respiratory: no cough and no dyspnea Cardiovascular: no chest pain Gastrointestinal: + abdominal pain (Radiating from right flank), + nausea and + vomiting Genitourinary: + as per Subjective / HPI Musculoskeletal: + back pain (Right flank) Integumentary: no rash Neurologic: no localized weakness Physical Exam Constitutional: WD/WN, vitals as above Eyes: no conjunctival abnormality ENMT: Ears: no hearing impairment Mouth: no oropharynx abnormality Neck: trachea midline Respiratory: normal respiratory effort, lungs clear to auscultation Cardiovascular: Rate/Rhythm: + irregularly irregular Gastrointestinal (Abdomen): Abdomen is soft, nonrigid, nondistended. There is no rebound tenderness or guarding. The patient had minimal pain with palpation on the right side of his abdomen Musculoskeletal: No calf tenderness Skin: no rashes Neurologic: moves all extremities Psychiatric: A+Ox3, euthymic affect Genitourinary: + CVA tenderness (Minimal CVA tenderness with percussion on the right) Results & Data ([facility]) Vital Signs (Past 12 Hours) Vital Signs Temp Pulse Pulse Pulse Resp BP BP 09/19/21 01:29 72 119/76 09/19/21 00:37 57 L 102/53 L 09/19/21 00:12 52 L 09/18/21 23:45 120 H 179/97 H 09/18/21 23:30 112 H 09/18/21 22:52 36.5 C 114 H 16 09/18/21 22:32 36.8 C 118 H 18 165/122 H 09/18/21 22:20 117 H 158/110 H 09/18/21 20:39 119 H 176/128 H 09/18/21 20:02 117 H 18 156/109 H 09/18/21 18:24 105 H 105 H 18 134/77 09/18/21 18:02 36.7 C 120 H 20 143/87 H Pulse Ox 09/19/21 01:29 09/19/21 00:37 09/19/21 00:12 09/18/21 23:45 09/18/21 23:30 09/18/21 22:52 99 09/18/21 22:32 97 09/18/21 22:20 09/18/21 20:39 09/18/21 20:02 98 09/18/21 18:24 96 09/18/21 18:02 96 PG Care Time/CCT Total # of Minutes Spent Total Time Spent with Patient: Total time spent is greater than 50% in coordination of care (as documented) at patient's floor/unit and/or counseling patient: Coding Level of Care Code 47121 Inpt Consult Level 5 Diagnoses Nephrolithiasis N20.0
[2021-09-19 06:18] LABS: Basophils # (auto) 0.02 K/uL (0-0.2); Basophils % (auto) 0.2 %; Eosinophils # (auto) 0.06 K/uL (0-0.5); Eosinophils % (auto) 0.7 %; Hematocrit (blood only) 42.3 % (42-52); Hemoglobin 14.4 g/dL (14.0-18.0); Immature Granulocytes # (auto) 0.01 K/uL (0.00-0.02); Immature Granulocytes % (auto) 0.1 %; Lymphocytes # (auto) 1.21 K/uL (1.2-3.4); Lymphocytes % (auto) 15.1 %; Mean Corpuscular Hemoglobin 32.4 pg (25-34); Mean Corpuscular Volume 95.1 fL (80-100); Mean Platelet Volume 9.3 fL (7.4-10.4); Monocytes # (auto) 0.94 K/uL (0.11-0.59); Monocytes % (auto) 11.7 %; Neutrophils # (auto) 5.77 K/uL (1.4-6.5); Neutrophils % (auto) 72.2 %; Platelet Count 226 K/uL (130-400); RDW Coefficient of Variation 13.6 % (11.5-14.5); RDW Standard Deviation 47.3 fL (36.4-46.3); Red Blood Count 4.45 M/uL (4.7-6.1); White Blood Count 8.01 K/uL (4.8-10.8)
[2021-09-19 06:19] LABS: INR 2.9 (0.9-1.1); Prothrombin Time 28.8 Seconds (9.0-12.0)
[2021-09-19] MEDS: METOPROLOL SUCC 50MG EXT REL TAB PO SCH ×2 (06:31→20:02)
[2021-09-19] MEDS: LEVOTHYROXINE SODIUM 150 MCG TABLET PO SCH (06:31)
[2021-09-19 06:35] LABS: BUN Creatinine Ratio 21.3 (10-20); Calcium 8.6 mg/dl (8.5-10.1); Creatinine Clr Calc Pharmacy 52.8 ml/min; Est GFR (African American) 47.7 ml/min; Est GFR (Non-African American) 41.2 ml/min; Potassium 5.2 mmol/L (3.5-5.1)
--- NOTE | 2021-09-19 07:40 | CT Scan Report ---
CT OF THE ABDOMEN AND PELVIS WITH CONTRAST CLINICAL HISTORY: Right-sided abdominal pain. COMPARISON STUDY: KUB August 09, 2020. TECHNIQUE: Following IV administration of 93 mL of Optiray, axial images of the abdomen and pelvis we re obtained from the lung bases to the proximal femurs. Images were reviewed in the axial, sagittal, and coronal planes. IV contrast was administered without complication. Automated exposure control wa s utilized for the study. A dose lowering technique was utilized adhering to the principles of ALARA . CT DOSE: 965.68 mGy.cm FINDINGS: No pneumatosis, free air or portal venous gas is present. Mild cardiomegaly is noted. There is hepatic steatosis. No biliary or pancreatic ductal dilatation is present. The spleen, adrenal gla nds, pancreas and left kidney are normal. There is mild right hydroureteronephrosis with delayed righ t nephrogram. Evaluation for distal ureteral calculi is significantly compromised given streak artifa ct from bilateral hip arthroplasties. There are numerous pelvic calcifications. The hydronephrosis is most likely due to a distal right ureteral calculus which is obscured on this exam. Prominent retrop eritoneal lymph nodes are probably benign. There is no evidence for a bowel obstruction. No evidence for acute appendicitis. Sigmoid diverticulosis is noted without evidence for acute diverticulitis. Th ere is moderate atherosclerotic plaque of the abdominal aorta which is normal in caliber. No acute fr acture or suspicious lesion is identified within the visualized skeletal structures. Postoperative fi ndings within lumbar spine are present. There is disc space narrowing with vacuum disc phenomenon at L2-L3. Adjacent endplate irregularity is nonspecific although statistically degenerative. IMPRESSION: 1. Mild right hydroureteronephrosis with delayed right nephrogram. Although not definitive, this is l ikely due to a distal right ureteral calculus obscured on this exam by streak artifact from hip arthr oplasties. 2. No bowel obstruction. No bowel wall thickening. 3. Sigmoid diverticulosis. No evidence for acute diverticulitis. ACT 112: Negative or not required by law. Electronically signed by: Dar Gleason M.D. 09/19/2021 7:38 AM
[2021-09-19] MEDS: ATORVASTATIN 10 MG TAB PO SCH (08:20)
[2021-09-19] MEDS: MULTIVITAMIN TAB PO SCH (08:20)
[2021-09-19] MEDS ORDERED: lisinopril 5 MG TAB PO SCH (09:00)
--- NOTE | 2021-09-19 09:22 | Electrocardiogram Report ---
Test Reason : Blood Pressure : / mmHG Vent. Rate : 114 BPM Atrial Rate : 242 BPM P-R Int : 000 ms QRS Dur : 088 ms QT Int : 342 ms P-R-T Axes : 260 002 -21 degrees QTc Int : 471 ms Atrial flutter with variable A-V block with premature ventricular or aberrantly conducted complexes Abnormal ECG When compared with ECG of 07-AUG-2020 13:54, Atrial flutter has replaced Sinus rhythm Vent. rate has increased BY 44 BPM Confirmed by Reuben Garcia ([id number]) on 09/19/2021 9:22:09 AM Referred By: Gary Figueroa Confirmed By:Reuben Garcia
--- NOTE | 2021-09-19 10:05 | Urology Progress Note ---
Date of Service September 19, 2021 Assessment & Plan (1) Hydronephrosis: Plan: 71yo M admitted for evaluation of atrial flutter with RVR and undergoing cardiac evaluation. He developed right flank pain and a CT a/p was obtained and notable for mild right hydroureteronephrosis likely due to a distal right ureteral calculus though imaging is obscured on exam by streak artifact from hip arthroplasties. - Plan of care reviewed with Dr. Spencer, on-call urologist. - Right flank pain has improved this morning. - Remains afebrile, labs reviewed-normal white count, creatinine 1.64 (1.25 yesterday) - Continue to trend - Urinalysis not indicative of infection. - Voiding spontaneously, continue to monitor. - Reviewed CT findings with patient. Discussed that the stone could not be definitively visualized on imaging given the streak artifact from his hip prosthesis. Discussed the option for cystoscopy and stent placement given the suspected right ureteral stone and hydronephrosis noted on imaging. Ureteral stents were discussed as well as postoperative issues and pain management. - Also reviewed option for continued observation, symptom control, and trial of passage. Discussed stone passage rates and possibility of spontaneous passage given suspected stone location. - Risks and benefits of all options discussed. All questions were answered. - Patient agreeable to continued observation with max expulsion therapy and symptom control. - No acute intervention planned at this time. - Continue supportive care, tamsulosin, prn pain control. - Strain all urine. - Will plan to make NPO at midnight to reassess in the AM given he remains inpatient. - Urology will follow. Admission and Anticipated Discharge Date Admission Date: September 18, 2021 Supervising Physician Co-Signing Physician Notes Discussed patient with GABE. Agree with plan. Subjective Pt examined at bedside this AM. Awake, resting in bed on arrival. No acute distress. Reports his right flank pain has improved. Notes some urinary frequency and hesitancy. No dysuria or hematuria. No fevers or chills. Review of Systems Constitutional: as per Subjective / HPI Genitourinary: + as per Subjective / HPI Physical Exam Constitutional: no acute distress Respiratory: no respiratory distress and no labored breathing Neurologic: awake Psychiatric: A+Ox3, euthymic affect Genitourinary: no CVA tenderness Results & Data ([facility]) Vital Signs (Past 12 Hours) Vital Signs Temp Pulse Pulse Pulse Resp BP BP 09/19/21 07:42 36.4 C L 97 H 17 114/75 09/19/21 06:30 120 H 114/74 09/19/21 03:45 36.5 C 102 H 14 158/89 H 09/19/21 01:29 72 119/76 09/19/21 00:37 57 L 102/53 L 09/19/21 00:12 52 L 09/18/21 23:45 120 H 179/97 H 09/18/21 23:30 112 H 09/18/21 22:52 36.5 C 114 H 16 09/18/21 22:32 36.8 C 118 H 18 165/122 H 09/18/21 22:20 117 H 158/110 H Pulse Ox 09/19/21 07:42 98 09/19/21 06:30 09/19/21 03:45 96 09/19/21 01:29 09/19/21 00:37 09/19/21 00:12 09/18/21 23:45 09/18/21 23:30 09/18/21 22:52 99 09/18/21 22:32 97 09/18/21 22:20 PG Care Time/CCT Total # of Minutes Spent Total Time Spent with Patient: Total time spent is greater than 50% in coordination of care (as documented) at patient's floor/unit and/or counseling patient: Coding Level of Care Code None Diagnoses Hydronephrosis N13.30
--- NOTE | 2021-09-19 10:34 | Cardiology Consultation ---
Date of Consultation September 19, 2021 Assessment & Plan (1) Atrial flutter with rapid ventricular response: (2) Elevated troponin: (3) RLQ abdominal pain: (4) Hydronephrosis: Mr. Arturo Cheng is a very pleasant 71-year-old male who was admitted on September 18, 2021 with recurrent atrial flutter with a rapid ventricular response as well as right flank pain with imaging revealing mild right hydroureteronephrosis likely due to a distal right ureteral calculus. The patient is asymptomatic to minimally symptomatic with the recurrent atrial flutter/fibrillation. His heart rate has improved following titration of beta-phong therapy. He is anticoagulated with Coumadin and has had a therapeutic INR since May 08, 2021. The minimal high sensitivity Troponin elevated is likely due to the recurrent atrial flutter with a rapid ventricular response. He is asymptomatic in regards symptoms suggestive of an acute coronary syndrome. There is no evidence of acute decompensated heart failure. Options discussed with patient - rate versus rhythm control, cardioversion, antiarrhythmic therapy, electrophysiology consultation for possible EPS/ablation. It is currently unknown if the patient will need a urological intervention that will require interruption of anticoagulation in the next month. At this point, the best course of action appears to be to proceed with rate control until the urological issues are sorted out. Metoprolol has been increased and his heart rates appear to be adequately controlled on the present dose which I would continue as presently prescribed. He is scheduled to follow-up with Dr. Figueroa on October 10, 2021 and will contact the office if needed prior to his previously scheduled appointment. Supervising Physician Co-Signing Physician Notes I have seen and examined the patient. I reviewed the medical record and discussed the case with Mr. Alba. I agree with his assessment. Reviewing EKGs a believe the patient has typical atrial flutter. Moving forward I believe the options are to cardiovert, start antiarrhythmic medication and then cardiovert or consider an a flutter ablation. I will discussed the case with the EP service. History of Present Illness Reason for Consultation: Atrial flutter Requesting Physician: Cory Attending Physician: Malcom History of Present Illness Mr. Arturo Browne is a very pleasant 71-year-old male who was admitted to [facility] on September 18, 2021 after observing increased heart rates on home monitoring, possibly in association with mild exertional dyspnea. Notes "letting it go"over the last 10 days. Notes still being able to perform all activities without significant difficulty. Notes finally calling, having an EKG performed in [place] yesterday, and being advised to go to the ER. The EKG revealed recurrent atrial flutter with variable AV block, with a ventricular rate of 120 bpm. While in the ER, the patient developed right flank pain wrapping around to the right lower quadrant with associated nausea and dry heaves. Imaging revealed mild right hydroureteronephrosis, probable distal right ureteral calculus obscured by streak artifact from the hip arthroplasties. The patient has been evaluated by Urology and the plan is observation with max expulsion therapy and symptom control. No acute intervention is planned however it is unknown at this time if the patient will require intervention in the near future. The patient notes perhaps mild increased exertional dyspnea since being aware of the elevated heart rate. He is able to perform all necessary activities without significant difficulty. He is comfortable at rest and at nighttime. No chest pain. No overt palpitations. He sleeps on 1 pillow chronically, without PND or lower extremity peripheral edema. No dizziness, lightheadedness, near-syncope, or syncope. No melena or hematochezia. History includes diagnosis of paroxysmal afib/flutter with RVR in Jan 2020. He was started on appropriate medical therapies with high dose metoprolol and Eliquis anticoagulation. Echo revealed mildly depressed LV systolic function with EF 40-45. He subsequently underwent successful DCCV after 4 weeks of anticoagulation therapy. Symptomatic sinus bradycardia then lead to the reduction in metoprolol dosing. Due to persistent dyspnea, abnormal EKG with T wave inversions, and unspecified cardiomyopathy, Mr. Browne underwent nuclear stress testing that revealed small area of apical ischemia on stress images. He was referred for diagnostic cardiac catheterization which transpired on May 17, 2020 at [facility] (Dr. Mora), demonstrating minor coronary artery disease, widely patent coronary anatomy, normal left heart pressures, normal LV function with an estimated LVEF of 60%. Follow-up resting echocardiography has also revealed normalization of LV systolic function. Past Medical and Surgical History: Atrial fibrillation/flutter Nonischemic cardiomyopathy, resolved Hypertension Dyslipidemia. Hypothyroidism Chronic back pain, spinal stenosis, status post intervention BPH without obstruction/lower urinary tract symptoms Stage 3a chronic kidney disease Anxiety Bilateral cataract extraction Prostate surgery Tonsillectomy Dental extraction Bilateral hip replacement Colonoscopy with polypectomy in October of 2019 Family History: Mother with a CVA at 90. Father with an IA at 50. One brother with hypertension and prostate cancer. Social History: Nonsmoker. Chews chewing tobacco. Alcohol: One beer per week. No illegal drug use. . Two children. Daughter with high blood pressure. 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 Allergies Allergy/AdvReac Type Severity Reaction Status Date / Time No Known Allergies Allergy Verified 09/18/21 18:58 Home Medications Medication Instructions Recorded Confirmed Type atorvastatin 10 mg tablet 10 mg PO QAM 03/09/20 09/18/21 History levothyroxine 150 mcg tablet 150 mcg PO QAM 03/09/20 09/18/21 History multivitamin 1 tab PO QAM 03/09/20 09/18/21 History lisinopril 5 mg tablet 5 mg PO QAM 07/16/20 09/18/21 History warfarin 5 mg tablet See Rx Instructions .ROUTE .COMPLEX 07/16/20 09/18/21 History metoprolol succinate 25 mg 25 mg PO QAM 09/18/21 09/18/21 History tablet,extended release 24 hr Patient History Medical History Anxiety no meds at present Atrial fibrillation dx fall 2019 > Metoprolol/Warfarin > cardioversion x1 BPH (benign prostatic hyperplasia) Chronic back pain CKD (chronic kidney disease) Per records- Stage 3 Hyperlipidemia Hypothyroidism NICM (nonischemic cardiomyopathy) EF 40-45% on 05/2020 ECHO Lisinopril for this, not HTN per pt Osteoarthritis Prediabetes Per records Surgical History History of cardiac cath no stents > Apr 2020 > [facility] History of cardioversion Feb 2020 History of cataract surgery bilat History of colonoscopy History of prostate surgery for enlargement History of tonsillectomy History of tooth extraction History of total hip arthroplasty bilat Family History Mother Stroke Social History Smoking Status: Never smoker Second Hand Exposure: No; Hx Alcohol Use: Yes Alcohol type: beer Hx Substance Use: No Preferred Language: Czech Communication Ability: Effective Radiator Fitter Required: No Beliefs That Will Affect Care: None marital status: Current Living Situation: Spouse Other Information That Helps Us Care for You: No Feels Safe at Home: Yes Safety Concerns: Feels Safe At This Time Assistive Devices: Glasses Physical Exam Physical Exam: General: alert, no distress, well nourished, well developed, comfortable and cooperative Skin: No rash Eyes: PER. Conjunctiva pink, sclera clear. HENT: Normocephalic. Atraumatic. Neck: No carotid bruits. No JVD. No HJR. Heart: Irregularly irregular at 90 bpm. No murmur. No rub. No gallop. PMI is nondisplaced. Lungs: Clear to auscultation. No abnormal breath sounds appreciated. Abdomen: +BS. Soft. Nontender. No masses. No organomegaly. Extremities: No clubbing, cyanosis, or edema. Pulses: radial=2/4, posterior tibial=1/4. Limited neurological examination: No focal deficit. Results & Data ([facility]) Vital Signs (Past 12 Hours) Vital Signs Temp Pulse Pulse Pulse Resp BP Pulse Ox 09/19/21 07:42 36.4 C L 97 H 17 114/75 98 09/19/21 06:30 120 H 114/74 09/19/21 03:45 36.5 C 102 H 14 158/89 H 96 09/19/21 01:29 72 119/76 09/19/21 00:37 57 L 102/53 L 09/19/21 00:12 52 L 09/18/21 23:45 120 H 179/97 H 09/18/21 23:30 112 H 09/18/21 22:52 36.5 C 114 H 16 99 Laboratory Results Laboratory Results - last 48 hr 09/18/21 09/18/21 09/18/21 18:29 18:30 18:30 WBC 6.77 RBC 4.97 Hgb 15.8 Hct 46.3 MCV 93.2 MCH 31.8 MCHC 34.1 RDW Std Deviation 46.3 RDW Coeff of Hi 13.6 Plt Count 226 MPV 9.6 Immature Gran % (Auto) 0.3 Neut % (Auto) 49.3 Lymph % (Auto) 40.2 [place] % (Auto) 8.0 Eos % (Auto) 1.6 Baso % (Auto) 0.6 Neut # (Auto) 3.34 Lymph # (Auto) 2.72 [place] # (Auto) 0.54 Eos # (Auto) 0.11 Baso # (Auto) 0.04 Immature Gran # (Auto) 0.02 PT INR Sodium 139 Potassium 4.4 Chloride 110 H Carbon Dioxide 20 L Anion Gap 9 BUN 35 H Creatinine 1.25 Est Cr Clr Drug Dosing 68.8 Est GFR ( Amer) 66.3 Est GFR (Non-Af Amer) 57.2 BUN/Creatinine Ratio 28.0 H Glucose 85 Calcium 9.3 Magnesium Total Bilirubin 0.6 AST 29 ALT 27 Alkaline Phosphatase 89 Troponin I High Sens 22.3 H Total Protein 6.9 Albumin 4.5 Globulin 2.4 L Albumin/Globulin Ratio 1.9 Lipase 38 TSH Urine Color Urine Appearance Urine pH Ur Specific [place] Urine Protein Urine Glucose (UA) Urine Ketones Urine Blood Urine Nitrite Urine Bilirubin Urine Urobilinogen Ur Leukocyte Esterase SARS-CoV-2, RNA, NAAT NEGATIVE 09/18/21 09/18/21 09/18/21 18:30 18:30 18:30 WBC RBC Hgb Hct MCV MCH MCHC RDW Std Deviation RDW Coeff of Hi Plt Count MPV Immature Gran % (Auto) Neut % (Auto) Lymph % (Auto) [place] % (Auto) Eos % (Auto) Baso % (Auto) Neut # (Auto) Lymph # (Auto) [place] # (Auto) Eos # (Auto) Baso # (Auto) Immature Gran # (Auto) PT 26.6 H INR 2.6 H Sodium Potassium Chloride Carbon Dioxide Anion Gap BUN Creatinine Est Cr Clr Drug Dosing Est GFR ( Amer) Est GFR (Non-Af Amer) BUN/Creatinine Ratio Glucose Calcium Magnesium 2.2 Total Bilirubin AST ALT Alkaline Phosphatase Troponin I High Sens Total Protein Albumin Globulin Albumin/Globulin Ratio Lipase TSH 1.488 Urine Color Urine Appearance Urine pH Ur Specific [place] Urine Protein Urine Glucose (UA) Urine Ketones Urine Blood Urine Nitrite Urine Bilirubin Urine Urobilinogen Ur Leukocyte Esterase SARS-CoV-2, RNA, NAAT 09/18/21 09/18/21 09/19/21 22:00 23:30 05:29 WBC 8.01 RBC 4.45 L Hgb 14.4 Hct 42.3 MCV 95.1 MCH 32.4 MCHC 34.0 RDW Std Deviation 47.3 H RDW Coeff of Hi 13.6 Plt Count 226 MPV 9.3 Immature Gran % (Auto) 0.1 Neut % (Auto) 72.2 Lymph % (Auto) 15.1 [place] % (Auto) 11.7 Eos % (Auto) 0.7 Baso % (Auto) 0.2 Neut # (Auto) 5.77 Lymph # (Auto) 1.21 [place] # (Auto) 0.94 H Eos # (Auto) 0.06 Baso # (Auto) 0.02 Immature Gran # (Auto) 0.01 PT INR Sodium Potassium Chloride Carbon Dioxide Anion Gap BUN Creatinine Est Cr Clr Drug Dosing Est GFR ( Amer) Est GFR (Non-Af Amer) BUN/Creatinine Ratio Glucose Calcium Magnesium Total Bilirubin AST ALT Alkaline Phosphatase Troponin I High Sens 30.9 H Total Protein Albumin Globulin Albumin/Globulin Ratio Lipase TSH Urine Color Dark Yellow Urine Appearance Clear Urine pH 5.0 Ur Specific [place] 1.038 H Urine Protein Negative Urine Glucose (UA) Negative Urine Ketones Trace H Urine Blood Negative Urine Nitrite Negative Urine Bilirubin Negative Urine Urobilinogen Negative Ur Leukocyte Esterase Negative SARS-CoV-2, RNA, NAAT 09/19/21 09/19/21 09/19/21 05:29 05:29 05:29 WBC RBC Hgb Hct MCV MCH MCHC RDW Std Deviation RDW Coeff of Hi Plt Count MPV Immature Gran % (Auto) Neut % (Auto) Lymph % (Auto) [place] % (Auto) Eos % (Auto) Baso % (Auto) Neut # (Auto) Lymph # (Auto) [place] # (Auto) Eos # (Auto) Baso # (Auto) Immature Gran # (Auto) PT 28.8 H INR 2.9 H Sodium 139 Potassium 5.2 H Chloride 110 H Carbon Dioxide 25 Anion Gap 4 BUN 35 H Creatinine 1.64 H D Est Cr Clr Drug Dosing 52.8 Est GFR ( Amer) 47.7 Est GFR (Non-Af Amer) 41.2 BUN/Creatinine Ratio 21.3 H Glucose 102 H Calcium 8.6 Magnesium Total Bilirubin AST ALT Alkaline Phosphatase Troponin I High Sens 26.8 H Total Protein Albumin Globulin Albumin/Globulin Ratio Lipase TSH Urine Color Urine Appearance Urine pH Ur Specific [place] Urine Protein Urine Glucose (UA) Urine Ketones Urine Blood Urine Nitrite Urine Bilirubin Urine Urobilinogen Ur Leukocyte Esterase SARS-CoV-2, RNA, NAAT Diagnostic Findings May 17, 2020 Coronary Angiography ([facility], Dr. Mora): Selective injections of the left coronary artery revealed the left main trunk to be patent. The left circumflex artery consists mainly of a large first marginal branch which supplies a large portion of the lateral myocardium. The left circumflex artery then continues and provides several smaller marginal branches to the posterior myocardium. The LAD gives off a very large first septal cattle farmer and then continues on to give off a medium size diagonal branch in its mid segment and then continues on to only the apex of the heart. There are luminal irregularities of both the left circumflex and LAD consistent with minor coronary artery disease however, the arteries are widely patent. Injections into the right coronary artery reveal it to be dominant. The right coronary artery has luminal irregularities consistent with minor coronary artery disease. The right coronary artery however, is widely patent. June 14, 2020 TTE Interpretation Summary (as per Dr. Sewell): The qualitative LV ejection fraction is 40-44% (mildly reduced). The base inferior wall appears thinned and moderately hypokinetic. The remaining left ventricular wall segments are mildly hypokinetic. Mild mitral regurgitation is present. Mild tricuspid regurgitation is present. Mild aortic valve regurgitation is present. Compared to last available study changes are noted as follows: Left ventricular systolic function has improved. January 08, 2021 TTE Interpretation Summary (as per Dr. Sewell): The qualitative LV ejection fraction is 55-59% (normal). The LV wall thickness is mildly increased (concentric). The left ventricular diastolic function is moderately abnormal (grade II). The left atrium is mildly enlarged. Mild mitral regurgitation is present. Compared to last available study changes are noted as follows: Left ventricular systolic function has improved. Continuous telemetry monitoring has revealed atrial flutter with heart rates as low as 36 bpm overnight, typically in the 80s to 1 teens.
--- NOTE | 2021-09-19 15:43 | Hospitalist Progress Note ---
Date of Service September 19, 2021 Assessment & Plan (1) Atrial flutter with rapid ventricular response: Plan: 71-year-old gentleman with PMH of paroxysmal A. fib and flutter, nonischemic CM with subsequent normalization of EF, mild nonobstructive CAD, CKD stage III, spinal stenosis, BPH, hypothyroidism presented to the ED 09/18 by referral of cardiology for evaluation of atrial flutter with RVR. Patient reported elevated heart rate for the past couple of weeks. While in the ED, patient developed acute right sided flank pain a/w nausea and dry heaves. Is being managed for the following: #. A flutter with RVR Patient was sent by cardiology office for evaluation of a flutter with RVR. Admitting EKG with a flutter with rate of 114. Admitting INR 2.6. Troponin trend borderline elevated but flat. TSH WNL, home metoprolol succinate 25 mg every morning uptitrated to 50 mg twice daily. Telemetry reviewed, in A. flutter, heart rate fairly under control. Continue telemetry, patient without chest pain or feeling of palpitation. Cardiology evaluating, plan to discuss with EP service. Appreciate recommendation. Holding coumadin until jessenia AM, likely urologic intervention. INR in AM. #. Acute right flank pain: Developed while in ED, a/w nausea and dry heaves #. Mild right hydroureteronephrosis likely secondary to right ureteral stone near the right UVJ After developing acute right flank pain, CTAP was obtained in the ED. It was suggestive of mild right hydroureteronephrosis, concern of distal right ureteral calculus which was complicated by streak artifact from hip arthroplasties. UA not suggestive of infection. Pain management, nausea management, patient without pain at bedside exam. Urology evaluated: Conservative management for now, strain urine, n.p.o. midnight to reassess in a.m., Flomax, IV fluid. Continue to monitor. #. CHRIS over CKD stage III Baseline creatinine around 1.1-1.2 Creatinine elevated to 1.64 today, likely obstructive from renal stone. Continue with IV fluid/expulsion therapy, BMP in a.m. #. Other chronic medical conditions: History of cardioversion, hypertension, nonischemic CM [2020 TTE 55% EF], CAD, hypothyroidism, prediabetes, HLD Continue with/resume home meds as and when able. DVT prophylaxis: INR goal between 2 and 3, coumandin on hold. Full code Patient's requesting . Carmita Browne, contact #[phone]. Admission and Anticipated Discharge Date Admission Date: September 18, 2021 Subjective Patient seen and examined at bedside as a follow-up of CHRIS over CKD, a flutter with RVR, right flank pain 2/2 mild right hydroureteronephrosis likely due to a distal right ureteral calculus. Patient was sitting up in bed, on room air, NAD, no new acute events overnight. Patient reports improvement in his right flank pain. Patient denies any headache or dizziness or chest pain or palpitation. Patient denies any acute changes in his bowel or bladder habits lately. Patient was n.p.o. waiting to be evaled by urology, diet resumed for today. No urologic intervention as of now, plan to reassess in AM. Physical Exam Physical Exam: GENERAL: Alert and oriented x3. NAD, on RA. obese. HEENT: No pallor, no icterus. Pupils equal, round and reactive to light. Oral mucosa moist. NECK: No JVD, no neck masses. HEART: S1 and S2 heard. irregular rate and rhythm. No murmur, no gallop. RESPIRATORY SYSTEM: Normal AP diameter. No accessory muscle use. No wheezing, no crackles. ABDOMEN: Soft, bowel sounds present, nontender, no distention. CENTRAL NERVOUS SYSTEM: No facial droop. Speech is clear. Obeys simple commands. Moves extremities. EXTREMITIES: No edema, no erythema seen. No CVA tenderness Results & Data Results & Data ([facility]) Vital Signs (Past 12 Hours) Vital Signs Temp Pulse Pulse Resp BP Pulse Ox 09/19/21 12:01 36.4 C L 67 17 150/80 H 95 09/19/21 07:42 36.4 C L 97 H 17 114/75 98 09/19/21 06:45 81 09/19/21 06:30 120 H 114/74 09/19/21 03:45 36.5 C 102 H 14 158/89 H 96
[2021-09-19] MEDS ORDERED: TAMSULOSIN HCL 0.4 MG CAP PO SCH (21:00)
[2021-09-19] MEDS ORDERED: HYDROmorphone INJ 0.5 MG/0.5 ML SYR IV PRN (22:50)
[2021-09-19] MEDS ORDERED: oxyCODONE HCL IR 5 MG TAB (IMMEDIATE RELEASE) PO PRN (22:52)
[2021-09-20] MEDS: LEVOTHYROXINE SODIUM 150 MCG TABLET PO SCH (05:04)
[2021-09-20] MEDS: SODIUM CHLORIDE 0.9% 1000ML 1,000 ML IV SCH ×2 (05:30→12:58)
[2021-09-20 06:02] LABS: Hematocrit (blood only) 40.5 % (42-52); Hemoglobin 13.8 g/dL (14.0-18.0); Mean Corpuscular Hemoglobin 32.2 pg (25-34); Mean Corpuscular Hgb Conc 34.1 g/dL (32-36); Mean Corpuscular Volume 94.6 fL (80-100); Mean Platelet Volume 9.3 fL (7.4-10.4); Platelet Count 205 K/uL (130-400); RDW Coefficient of Variation 13.4 % (11.5-14.5); RDW Standard Deviation 46.4 fL (36.4-46.3); Red Blood Count 4.28 M/uL (4.7-6.1); White Blood Count 7.34 K/uL (4.8-10.8)
[2021-09-20 06:26] LABS: BUN Creatinine Ratio 23.8 (10-20); Calcium 8.1 mg/dl (8.5-10.1); Creatinine Clr Calc Pharmacy 66.3 ml/min; Est GFR (African American) 63.2 ml/min; Est GFR (Non-African American) 54.5 ml/min; Magnesium 1.9 mg/dl (1.7-2.4); Phosphorus 2.3 mg/dl (2.5-4.9); Potassium 4.5 mmol/L (3.5-5.1)
[2021-09-20 06:37] LABS: INR 2.7 (0.9-1.1); Prothrombin Time 27.3 Seconds (9.0-12.0)
--- NOTE | 2021-09-20 09:37 | Cardiology Progress Note ---
Date of Service September 20, 2021 Assessment & Plan (1) Atrial flutter with rapid ventricular response: (2) Elevated troponin: (3) RLQ abdominal pain: (4) Hydronephrosis: Plan: Mr. Arturo Cheng is a very pleasant 71-year-old male who was admitted on September 18, 2021 with recurrent atrial flutter with a rapid ventricular response as well as right flank pain. Imaging revealed mild right hydroureteronephrosis felt to be secondary to a distal right ureteral calculus. Urology is on the case. The patient is asymptomatic to minimally symptomatic with the recurrent atrial flutter. His heart rate is generally controlled following titration of beta- phong therapy, aggravated this morning due to pain. He is anticoagulated with Coumadin and has had a therapeutic INR since May 08, 2021. The minimal high sensitivity Troponin elevated is likely due to the recurrent atrial flutter with a rapid ventricular response. He is asymptomatic in regards symptoms suggestive of an acute coronary syndrome. There is no evidence of acute decompensated heart failure. Options of management discussed once again. Will proceed with rate control in the short term, allowing time to recovery from the noncardiac issues. Arrangements are being made for the patient to be evaluated by Electrophysiology, to consider possible EPS/ablation versus other. He is also scheduled to follow-up with Dr. Figueroa on October 10, 2021. Admission and Anticipated Discharge Date Admission Date: September 19, 2021 Supervising Physician Co-Signing Physician Notes I have seen and examined the patient. I reviewed the medical record and discussed the case with Mr. Alba. I agree with the plan as outlined above. I spoke with Dr. Feng myself and she feels the best is for the patient to see her as outpatient. Our office will call with an appointment. Continue current rate control and anticoagulation. Patient can be discharged per the hospitalist service and urology. Subjective Patient seen and examined. Chart, medications, and telemetry reviewed. Circa two hours of right flank pain. Chronic pain pain. No chest pain, palpitations, unusual shortness of breath, orthopnea, PND, edema, lightheadedness, dizziness, near syncope, melena, hematochezia, or hematuria. Telemetry: Atrial flutter ranging from 60 to 120 bpm. Physical Exam Physical Exam: General: alert, no distress, well nourished, well developed, comfortable and cooperative Skin: No rash Eyes: PER. Conjunctiva pink, sclera clear. HENT: Normocephalic. Atraumatic. Neck: No carotid bruits. No JVD. No HJR. Heart: Irregularly irregular at 110 bpm. No murmur. No rub. No gallop. PMI is nondisplaced. Lungs: Clear to auscultation. No abnormal breath sounds appreciated. Abdomen: +BS. Soft. Nontender. No masses. No organomegaly. Extremities: No clubbing, cyanosis, or edema. Pulses: radial=2/4, posterior tibial=1/4. Limited neurological examination: No focal deficit Results & Data ([facility]) Vital Signs (Past 12 Hours) Vital Signs Temp Pulse Pulse Resp BP Pulse Ox 09/20/21 06:59 36.7 C 113 H 20 138/96 97 09/20/21 03:04 36.6 C 92 H 18 130/87 98 09/20/21 00:00 113 H 09/19/21 23:10 36.5 C 113 H 18 132/85 97 Laboratory Results Laboratory Results - last 24 hr 09/18/21 09/20/21 09/20/21 23:30 05:27 05:27 WBC 7.34 RBC 4.28 L Hgb 13.8 L Hct 40.5 L MCV 94.6 MCH 32.2 MCHC 34.1 RDW Std Deviation 46.4 H RDW Coeff of Hi 13.4 Plt Count 205 MPV 9.3 PT 27.3 H INR 2.7 H Sodium Potassium Chloride Carbon Dioxide Anion Gap BUN Creatinine Est Cr Clr Drug Dosing Est GFR ( Amer) Est GFR (Non-Af Amer) BUN/Creatinine Ratio Glucose Calcium Phosphorus Magnesium Hepatitis C Ab (EIA) NON-REACTIVE Hep C Ab Signal/Cutoff 0.01 09/20/21 05:27 WBC RBC Hgb Hct MCV MCH MCHC RDW Std Deviation RDW Coeff of Hi Plt Count MPV PT INR Sodium 138 Potassium 4.5 Chloride 108 H Carbon Dioxide 24 Anion Gap 6 BUN 31 H Creatinine 1.30 D Est Cr Clr Drug Dosing 66.3 Est GFR ( Amer) 63.2 Est GFR (Non-Af Amer) 54.5 BUN/Creatinine Ratio 23.8 H Glucose 96 Calcium 8.1 L Phosphorus 2.3 L Magnesium 1.9 Hepatitis C Ab (EIA) Hep C Ab Signal/Cutoff
[2021-09-20] MEDS: ATORVASTATIN 10 MG TAB PO SCH (09:47)
[2021-09-20] MEDS: MULTIVITAMIN TAB PO SCH (09:47)
[2021-09-20] MEDS: METOPROLOL SUCC 50MG EXT REL TAB PO SCH (09:48)
--- NOTE | 2021-09-20 09:55 | Urology Progress Note ---
Date of Service September 20, 2021 Assessment & Plan (1) Hydronephrosis: (2) Renal colic: Plan: 71yo M admitted for evaluation of atrial flutter with RVR and undergoing cardiac evaluation. He developed right flank pain and a CT a/p was obtained and notable for mild right hydroureteronephrosis likely due to a distal right ureteral calculus though imaging is obscured on exam by streak artifact from hip arthroplasties. - Plan of care reviewed with Dr. Freedman, on-call urologist. - Pain is currently well controlled. Did have an episode of severe right flank pain last evening, managed with IV pain medication. - He is straining all urine, no stone passage noted. - Remains afebrile, labs reviewed-normal white count, creatinine 1.30 today (1.64 yesterday) - Continue to trend - Urinalysis not indicative of infection. - Will obtain KUB this morning to evaluate for stone. - Continue supportive care, tamsulosin, prn pain control. - Keep NPO and strain all urine. - Additional recommendations pending KUB imaging. - Pt reassessed. - KUB reviewed and notable for numerous pelvic phleboliths which degrades assessment for distal ureteral stone. No renal calculi visualized. - Again discussed option for cystoscopy and stent placement. Ureteral stents were discussed as well as postoperative issues and pain management. - Discussed outpatient options for conservative measures with max expulsion medical therapy and symptom control. - Discussed stone passage rates and possibility of spontaneous passage given stone size and location. - Risks/benefits of each discussed. - Patient prefers trial of passage with close follow-up with urology next week. - No acute intervention planned today. - Will arrange outpatient follow-up with urology next week with repeat KUB. - Recommend home with Tamsulosin and prn pain control. - Advised patient to stay well-hydrated and strain urine. - Reviewed in detail signs/symptoms that would warrant return to the hospital, patient verbalized an understanding. - Patient agreeable to above plan, all questions were answered. - Urology will sign off. Please contact us with any further questions, concerns, or changes in patient status. Admission and Anticipated Discharge Date Admission Date: September 19, 2021 Subjective Patient examined at bedside this AM. Awake, resting in bed on arrival. No acute distress. No fevers or chills. States he had an episode of severe right flank pain last evening, managed with IV pain medication. Pain is currently well controlled. Voiding without issue. Urine is clear yellow. Straining all urine. No stone passage noted. No nausea or vomiting. Has been NPO. Review of Systems Constitutional: as per Subjective / HPI Gastrointestinal: as per Subjective / HPI Genitourinary: + as per Subjective / HPI Physical Exam Constitutional: no acute distress Respiratory: no respiratory distress and no labored breathing Neurologic: awake Psychiatric: A+Ox3, euthymic affect Genitourinary: no CVA tenderness Results & Data ([facility]) Vital Signs (Past 12 Hours) Vital Signs Temp Pulse Pulse Resp BP Pulse Ox 09/20/21 06:59 36.7 C 113 H 20 138/96 97 09/20/21 03:04 36.6 C 92 H 18 130/87 98 09/20/21 00:00 113 H 09/19/21 23:10 36.5 C 113 H 18 132/85 97 PG Care Time/CCT Total # of Minutes Spent Total Time Spent with Patient: Total time spent is greater than 50% in coordination of care (as documented) at patient's floor/unit and/or counseling patient: Coding Level of Care Code 29759 Subseq Hosp Care Lvl 2 Diagnoses Hydronephrosis N13.30 Renal colic N23
[2021-09-20] MEDS ORDERED: POLYETHYLENE (MIRALAX) 17 GM PACK PO PRN (10:40)
--- NOTE | 2021-09-20 10:42 | XRay Report ---
KUB CLINICAL HISTORY: Right ureteral stone. FINDINGS: An AP supine abdominal radiograph is compared to study dated 08/09/2020 and correlated with abdominal CT dated 09/18/2021. There is a nonobstructed abdominal bowel gas pattern. Moderate fecal re tention is seen throughout the colon and partially obscures the renal shadows. No calcifications are seen projecting over either kidney. Numerous pelvic phleboliths are similar to previous. The skeletal structures are osteopenic and appear intact. Extensive fusion hardware is noted in the lumbar spine. Bilateral hip arthroplasties are in place. IMPRESSION: 1. No renal calculi are clearly identified. 2. Numerous pelvic phleboliths are similar to previous. This degrades assessment for a distal uretera l stone. Electronically signed by: Ladarius Melendez M.D. 09/20/2021 10:40 AM
--- NOTE | 2021-09-20 14:24 | Discharge Summary ---
Date of Service September 20, 2021 Admission HPI Per Admitting Provider 71 year old male with PMH hypothyroidism, paroxysmal atrial fibrillation and flutter, nonischemic cardiomyopathy with subsequent normalization of EF, mild nonobstructive CAD, CKD stage III, BPH, spinal stenosis, and other problems listed below who presents to the ED by referral of cardiology for evaluation of atrial flutter with RVR. Patient reports an elevated heart rate for the past couple of weeks. He has had mild exertional shortness of breath. Patient had an EKG performed today as an outpatient to demonstrate atrial flutter with RVR and was referred to the ED for further evaluation. Patient denies chest pain palpitations. No lightheadedness, dizziness, diaphoresis, syncopal events. Denies urinary symptoms. While in the ED, patient developed right flank pain wrapping around to the right upper quadrant with associated nausea and dry heaves. Patient reports chronic back pain for which he usually takes Tylenol daily for. Reports pain is typically located mid back. Patient reports a normal bowel movement this morning. No recent fevers or chills. In the ED, EKG shows atrial flutter rate 114. Labs are unremarkable. Patient was given IV metoprolol 5 mg, IVF, IV Zofran. Admission Exam Per Admitting Provider Constitutional: WD/WN, vitals as above Restless, dry heaving Eyes: PERRL, conjunctivae normal, anicteric sclerae ENMT: external ear and nose normal, oropharynx normal Respiratory: normal respiratory effort, lungs clear to auscultation Cardiovascular: Rate/Rhythm: regular rhythm and + tachycardic Vessels: normal peripheral pulses Extremities: no edema Gastrointestinal (Abdomen): Inspection/Auscultation: normal bowel sounds Percussion/Palpation: + abdomen tender (RUQ) and abdomen soft; no hepatosplenomegaly Musculoskeletal: no cyanosis or clubbing, extremities motor strength 5/5 Skin: no rashes, warm and dry Neurologic: PERRL, EOMI, accommodation nl, no face palsy, no dysarthria Psychiatric: A+Ox3, euthymic affect Principal Diagnosis A flutter with rapid ventricular response Acute right flank pain, mild right hydroureteronephrosis likely secondary to right ureteral stone near the right UVJ Likely UTI CHRIS over CKD stage III Discharge Exam GENERAL: Alert and oriented x3. NAD, on RA. obese. HEENT: No pallor, no icterus. Pupils equal, round and reactive to light. Oral mucosa moist. NECK: No JVD, no neck masses. HEART: S1 and S2 heard. irregular rate and rhythm. No murmur, no gallop. RESPIRATORY SYSTEM: Normal AP diameter. No accessory muscle use. No wheezing, no crackles. ABDOMEN: Soft, bowel sounds present, nontender, no distention. CENTRAL NERVOUS SYSTEM: No facial droop. Speech is clear. Obeys simple commands. Moves extremities. EXTREMITIES: No edema, no erythema seen. No CVA tenderness Discharge Data Allergies Allergy/AdvReac Type Severity Reaction Status Date / Time No Known Allergies Allergy Verified 09/18/21 18:58 Consultations 09/19/21 01:24 Consult Urology Routine 09/19/21 01:26 Consult Cardiology Routine Ordered Studies 09/18/21 21:36 CT abd pelvis IV con only Urgent Hospital Course (1) Atrial flutter with rapid ventricular response: 71-year-old gentleman with PMH of paroxysmal A. fib and flutter, nonischemic CM with subsequent normalization of EF, mild nonobstructive CAD, CKD stage III, spinal stenosis, BPH, hypothyroidism presented to the ED 09/18 by referral of cardiology for evaluation of atrial flutter with RVR. Patient repor angel elevated heart rate for the past couple of weeks. While in the ED, patient developed acute right sided flank pain a/w nausea and dry heaves. He was managed for the following: #. A flutter with RVR Patient was sent by cardiology office for evaluation of a flutter with RVR. Admitting EKG with a flutter with rate of 114. Admitting INR 2.6. Troponin trend borderline elevated but flat. TSH WNL, home metoprolol succinate 25 mg every morning uptitrated to 50 mg twice daily. Telemetry reviewed, in A. flutter, heart borderline elevated, no chest pain. Cardio evaluated, plan for OP EP eval. Card ok to DC from their POV. Pt to follow up w/ cardio and EP as OP in 1 week time. Get blood work cbc, cmp and mg level done in 1 wk upon DC and have it forwarded to PCP. resume your warfarin, f/u w/ coumadin clinic in 3-5 days upon DC for PT/INR and further eval. #. Acute right flank pain: Developed while in ED, a/w nausea and dry heaves #. Mild right hydroureteronephrosis likely secondary to right ureteral stone near the right UVJ #. Likely UTI After developing acute right flank pain, CTAP was obtained in the ED. It was suggestive of mild right hydroureteronephrosis, concern of distal right ureteral calculus which was complicated by streak artifact from hip arthroplasties. UA not suggestive of infection. Pain management, nausea management, patient without pain at bedside exam. At bedside today, Pt complaining of pain or burn while passing urine yesterday and today. Urology evaluated: Conservative management for now, strain urine, f/u as OP. Pt being discharged on PO antibiotic for likely UTI. Urology ok w/ DC. #. CHRIS over CKD stage III Baseline creatinine around 1.1-1.2 Resolved, labs in a week as OP. #. Other chronic medical conditions: History of cardioversion, hypertension, nonischemic CM [2020 TTE 55% EF], CAD, hypothyroidism, prediabetes, HLD Continue with/resume home meds as and when able. Full code Patient's requesting Ms. Carmita Browne, contact #[phone]. Patient being discharged home with following instruction at the point of discharge: Follow-up with your primary care physician within a week time. Get your blood work CBC, CMP and Mg level done in a week time and have the resu lts forwarded to your primary care physician. For your acute right flank pain, urology evaluated you, you will need to follow- up with urology as an outpatient. Due to your complaints of pain/burning while passing urine on the given background of renal pain, you are being discharged on antibiotic for likely UTI as discussed at the bedside. Maintain adequate hydration. You are being discharged with few days worth of pain medication, if ongoing/worsening pain, you will need evaluation/management/prescription from your primary care physician. For your atrial flutter with rapid ventricular response, cardiology evaluated you, your metoprolol dose has been uptitrated, you will need to follow-up with cardiology and electrophysiology In 1 week time. Follow-up with your Coumadin clinic and treated blood work PT/INR done in 3 to 5 days upon discharge. Take your medications as prescribed. Total Time Total Time Spent Total Time Spent (In Minutes): 35 Discharge Plan Discharge Items Patient Disposition: Home - Home Health Services Reason For Visit: RAPID AF, OBS UROPATHY Discharge Diagnosis: A flutter with rapid ventricular response Acute right flank pain, mild right hydroureteronephrosis likely secondary to right ureteral stone near the right UVJ Likely UTI CHRIS over CKD stage III Activity: Resume your previous activity Non-emergency contact: Primary Care Provider Call non-emergency contact if: you have any medication questions, your symptoms worsen, your pain is worsening and your temperature is above 101 Follow-up/Referrals: Erin Brooke MD [Primary Care Provider] - (Date & Time 09/26/2021 1:40 PM Provider Erin Brooke MD Department Family Medicine [facility] ) Diet: Heart Healthy Ambulatory Orders: XR KUB/Abdomen 1 view (Routine) Timeframe: 1 Week Facility: [facility] - Location: Radiology Main [place] Ordered By: Cecy Corona Attending Provider Instructions: Follow-up with your primary care physician within a week time. Get your blood work CBC, CMP and Mg level done in a week time and have the results forwarded to your primary care physician. For your acute right flank pain, urology evaluated you, you will need to follow- up with urology as an outpatient. Due to your complaints of pain/burning while passing urine on the given background of renal pain, you are being discharged on antibiotic for likely UTI as discussed at the bedside. Maintain adequate hydration. You are being discharged with few days worth of pain medication, if ongoing/worsening pain, you will need evaluation/management/prescription from your primary care physician. For your atrial flutter with rapid ventricular response, cardiology evaluated you, your metoprolol dose has been uptitrated, you will need to follow-up with cardiology and electrophysiology In 1 week time. Follow-up with your Coumadin clinic and treated blood work PT/INR done in 3 to 5 days upon discharge. Take your medications as prescribed. [employer] Provider Instructions: The urology office will contact you to arrange a follow-up appointment. Please call [facility] urology with any questions or concerns. We are happy to assist you. Call [facility] Urology at [phone] promptly if you experience: Fever of 101F or greater Pain thats not controlled with medicine Trouble urinating or inability to urinate Dark, bloody urine for more than 12 hours Pending Studies at Discharge: No Stand-Alone Forms: My [facility], Smoking Cessation Medications and DC Order Prescriptions: New tamsulosin 0.4 mg Capsule 0.4 mg PO HS Qty: 30 RF: 0 metoprolol succinate 50 mg Tablet Extended Release 24 Hr 50 mg PO BID Qty: 60 RF: 0 cefdinir 300 mg capsule 300 mg PO BID 5 Days Qty: 10 RF: 0 oxycodone-acetaminophen [Percocet] 5-325 mg tablet 1 tab PO Q6H PRN (Reason: pain (scale score 7-10)) 5 Days Qty: 20 RF: 0 Continued atorvastatin 10 mg Tablet 10 mg PO QAM RF: 0 levothyroxine 150 mcg Tablet 150 mcg PO QAM RF: 0 multivitamin Tablet 1 tab PO QAM RF: 0 warfarin 5 mg Tablet See Rx Instructions .ROUTE .COMPLEX RF: 0 lisinopril 5 mg Tablet 5 mg PO QAM RF: 0 Discontinued metoprolol succinate 25 mg tablet extended release 24 hr 25 mg PO QAM RF: 0 Discharge Orders: Discharge Order (Routine); Ordered 09/20/21 Ordered By: Randi العراقي Admission Data Admit Date/Time: 09/19/21 22:51 Attending Provider: Randi العراقي Admit Provider: Gee Ray Primary Care Provider: Erin Brooke Other Providers: Grupo Ellis ; Dawit Conteh ; Loc Freedman ; Cecy Mukherjee ; Molina Humphreys ; Teresa Mccray ; Thu Gomez ; Marbin Ngo ; Humberto Bailey ; Rebecca Aranda ; Jose Guadalupe Spencer ; Dawit Cha ; Gary Figueroa ; Jeremie Guerrero ; Humberto Sewell ; Viktor Mora ; Eliu Alba ; Thalia Sheets ; Harriet Moss ; Cheryl Oneal ; Clayton Arevalo
[2021-09-20] MEDS ORDERED: POT PHOSPHATE MONOBASIC W/ SOD TAB PO SCH (17:00)
== END 2021-09-20 15:35 | disposition home or self-care (01) | DRG 309 ==
LOC: 2S 18:01 → ED 18:01 → SUATTDRO 21:40 → 2S 22:32

== ENCOUNTER 2023-02-24 11:27 | Inpatient (IN) ==
--- NOTE | 2023-01-26 12:37 | PAT Medication Instructions ---
Medication Instructions Date of Service January 26, 2023 Home Medications Medication Instructions Recorded tamsulosin 0.4 mg capsule 0.4 mg PO HS #30 caps 11/14/21 sildenafil (pulm.hypertension) 20 20 mg PO ONCE PRN sexual activity 08/29/22 mg tablet #25 tabs levothyroxine 150 mcg tablet 150 mcg PO QAM multivitamin 1 tab PO QAM tamsulosin 0.4 mg capsule 0.4 mg PO HS sildenafil 20 mg tablet 20 mg PO ONCE PRN sexual activity aspirin 81 mg tablet,delayed release 81 mg PO QAM duloxetine 30 mg capsule,delayed release 30 mg PO QAM lisinopril 20 mg tablet 20 mg PO QAM metoprolol succinate 25 mg tablet,extended release 24 hr (Toprol XL) 25 mg PO QAM rosuvastatin 20 mg tablet 20 mg PO QAM ASK your prescriber and surgeon aspirin 81 mg tablet,delayed release 81 mg PO QAM STOP taking 24 hours before surgery sildenafil 20 mg tablet 20 mg PO ONCE PRN sexual activity DO NOT take the morning of surgery multivitamin 1 tab PO QAM lisinopril 20 mg tablet 20 mg PO QAM Take morning of surgery With a small sip of water, OTHERWISE NOTHING TO EAT OR DRINK AFTER MIDNIGHT: levothyroxine 150 mcg tablet 150 mcg PO QAM duloxetine 30 mg capsule,delayed release 30 mg PO QAM metoprolol succinate 25 mg tablet,extended release 24 hr (Toprol XL) 25 mg PO QAM rosuvastatin 20 mg tablet 20 mg PO QAM Take evening before surgery tamsulosin 0.4 mg capsule 0.4 mg PO HS Other Notes If you have any questions please call us at [phone] or [phone] or [phone] or [phone]
--- NOTE | 2023-02-03 08:41 | Anesthesiology Consultation ---
Date of Service February 03, 2023 Assessment & Plan (1) Encounter for pre-operative examination: Chart Review Chart Review: Acceptable Risk for Surgery (pending PCP and cardio clearances ) and Patient seen in Pre Admission Testing - Awaiting PCP clearance scheduled 02/06/23 ([facility]) - Awaiting cardio clearance 02/16/23 ([facility]) Per PAT appt on 02/03/23, no recent illness/disease exposures, illness related symptoms, or recent illness/disease positive tests. Will leave to surgeon's discretion if preop Covid testing needed JACINTA 10/16/21= Done under [facility] - S/P L4-S1 decompression/fusion (08/07/20): Grade view 1, glidescope, ETT 8.0, atraumatic at [facility]. Per post-op anesthesia progress note: "Pt went up to the floor and on arrival was noted to have palpable pulse of 30. He was returned to PACU and EKG showed that he had been in [place] at that time with an overall rate in 60s, but a sinus node rate of 30s. On rearrival to PACU he was noted to have a heart rate in the 60s to 70s with frequent PVCs (no longer in bigeminy). His blood pressure was stable and appropriate and the patient denied symptoms of CP or palpitations. Preop EKG had been significant for frequent PVCs. Patient is ok to return to the floor as his heart rate and PVCs are at his preoperative baseline. Explained this to the patient who is comfortable returning to the floor." No further issues notes per discharge summary. Teaching & Discussion Pre-Anesthesia Teaching/Discussion Notes: Instructed NPO after midnight before surgery,except medications with 15 cc of water. Medication instructions provided according to the PAT guidelines. History Surgery Operation Date: 02/24/23 10:05 Proposed Procedures p L2-L3 Decompression and Fusion Spinal Cord Monitoring - Thom Valverde DO Height/Weight Height: 6 ft Weight: 111.5 kg Allergies Allergy/AdvReac Type Severity Reaction Status Date / Time No Known Allergies Allergy Verified 01/26/23 07:40 Medications Home Medications Medication Instructions Recorded Confirmed Last Taken levothyroxine 150 mcg tablet 150 mcg PO QAM 03/09/20 01/26/23 09/18/21 multivitamin 1 tab PO QAM 03/09/20 01/26/23 09/18/21 tamsulosin 0.4 mg capsule 0.4 mg PO HS #30 caps 11/14/21 01/26/23 Unknown sildenafil (pulm.hypertension) 20 20 mg PO ONCE PRN sexual activity 08/29/22 01/26/23 Unknown mg tablet #25 tabs aspirin 81 mg tablet,delayed 81 mg PO QAM 01/26/23 01/26/23 Unknown release duloxetine 30 mg capsule,delayed 30 mg PO QAM 01/26/23 01/26/23 Unknown release lisinopril 20 mg tablet 20 mg PO QAM 01/26/23 01/26/23 Unknown metoprolol succinate 25 mg 25 mg PO QAM 01/26/23 01/26/23 Unknown tablet,extended release 24 hr (Toprol XL) rosuvastatin 20 mg tablet 20 mg PO QAM 01/26/23 01/26/23 Unknown Past Medical History Medical History Depression Neuropathy Noted to hands and feet - reason started duloxetine Atrial flutter with rapid ventricular response ablation to treat NICM (nonischemic cardiomyopathy) EF 40-45% on 05/2020 ECHO Reason for Lisinopril per pt (denies HTN hx) Prediabetes Per records > no meds > diet controlled CKD (chronic kidney disease) Per records- Stage 3 > no specialist Anxiety Chronic back pain BPH (benign prostatic hyperplasia) Hypothyroidism Atrial fibrillation dx fall 2019 > Metoprolol > follows with Dr. Figueroa was on AC prior to ablation- now only on ASA 81mg Hyperlipidemia Exercise / Class Metabolic Activity III < 4 Walking/Shop/Light housework (one flight of stairs -no chest pain, mild SOB due to joint pain ) Past Family History Family History Mother Stroke Past Surgical History Surgical History History of cardiac radiofrequency ablation 2021 > [facility] S/P lumbar spine operation 2020 @ [facility] History of total hip arthroplasty bilat History of tonsillectomy History of cardiac cath Apr 2020 ([facility]) > no stents History of cardioversion 02/2020 @ [facility] History of cataract surgery bilat History of prostate surgery for enlargement History of colonoscopy History of tooth extraction Past Anesthesia History No Hx of Anesthesia Complications and No Family Hx of Anesthesia Complications History of PONV No Hx of PONV and No Hx of Motion Sickness Social History Smoking Status: Never smoker tobacco type: smokeless tobacco Do You Dip or Chew Tobacco: Yes (few times weekly- advised NPO status) Hx Alcohol Use: Yes Alcohol type: beer, wine and hard liquor alcohol intake frequency: a few times a week Hx Substance Use: No substance use type: does not use Review of Systems - Mild snoring - no witnessed apnea- no sleep study Patient denies chest pain, shortness of breath, dyspnea on exertion, reflux, cough, wheezing, palpitations. No hx of seizures, stroke, NH, apnea/snoring. No hx of blood clots or blood transfusions Physical Exam Vital Signs VITALS BP 149/86 P 57 TEMP 97.8 SP02 97% RESP 16 Constitutional no acute distress ENMT Mouth: no TMJ clicking Thyromental Distance: > or= 3.5 Finger Breadths (3.5) Mallampati Class: III Missing molars and side teeth Temporary cap to left upper side tooth Caps and crowns to molars and side teeth Neck + limited neck extension Respiratory normal respiratory effort; no respiratory distress Auscultation: lungs clear to auscultation bilaterally; no wheezes Cardiovascular Rate/Rhythm: regular rate and regular rhythm Heart Sounds: no murmur Vessels: no carotid bruit Musculoskeletal Spine: no pain with cervical ROM Extremities: extremities normal to inspection Psychiatric Orientation: alert Lab Results Anesthesia Preop Results Results Anesthesia Widget: WBC 5.93 K/ul (4.8-10.8) 02/03/23 Hgb 15.6 g/dl (14.0-18.0) 02/03/23 Hct 46.3 % (42.0-52.0) 02/03/23 Plt 215 K/uL (130-400) 02/03/23 Na 139 mmol/L (136-145) 02/03/23 K 5.0 mmol/L (3.5-5.1) 02/03/23 Cl 105 mmol/L (98-107) 02/03/23 CO2 30 mmol/L (21-32) 02/03/23 BUN 28 mg/dl (6-23) H 02/03/23 Creat 1.25 mg/dl (0.6-1.4) 02/03/23 Glucose Level 108 mg/dl (70-99(Fasting)) H 02/03/23 PT 10.7 Seconds (9.0-12.0) 02/03/23 PTT 28.2 Seconds (21.0-31.0) 02/03/23 INR 1.0 (0.9-1.1) 02/03/23 HA1c 6.2 % (4.5-5.6) H 02/03/23 Urine Color Dark Yellow 02/03/23 Urine Appearance Clear (Clear) 02/03/23 Urine pH 5.0 (4.5-7.5) 02/03/23 Urine Specific [place] 1.032 (1.000-1.030) H 02/03/23 Urine Protein Negative (Negative) 02/03/23 Urine Glucose (UA) Negative (Negative) 02/03/23 Urine Ketones Trace (Negative) H 02/03/23 Urine Blood Negative (Negative) 02/03/23 Urine Nitrite Negative (Negative) 02/03/23 Urine Bilirubin Negative (Negative) 02/03/23 Urine Urobilinogen Negative (Negative) 02/03/23 Urine Leukocyte Esterase Negative (Negative) 02/03/23 Blood Type O Positive 02/03/23 Antibody Screen NEGATIVE 02/03/23 Testing Electrocardiogram Date: 02/03/23 Findings: + SB @ (53bpm ) Otherwise normal EKG per cardio Chest X-Ray Date: 02/03/23 Findings: + NAD FINDINGS: Cardiomediastinal and hilar silhouettes are within normal limits. No pneumothorax, pleural effusion or airspace consolidation. Spondylitic spurring of the spine Echocardiogram Date: 06/14/20 LVEF 40-44%. Basal inferior wall appears thinned and moderately hypokinetic. Remaining wall segments are mildly hypokinetic. Mild MR/TR/AR. Compared to last study changes are noted as follows: Left ventricular systolic function has improved per report. JACINTA 10/16/21= Left atrial appendage is free of thrombus. No spontaneous contrast in any of the cardiac chambers despite patient being in exploratory exam. No significant valvular pathology. Left and right ventricular systolic function appear to be preserved No contraindication to proceed with ablation procedure cardioversion. Stress Test Date: 04/20/20 Type: nuclear Abnormal Lexiscan nuclear stress test. Stress test is positive for apical ischemia with otherwise normal perfusion. Mild hypokinesis involving the apical cap, otherwise, normal wall motion. EF calculated to be 56%. Baseline EKG shows sinus rhythm with nonspecific STT wave changes. No new ST segment depression. Cardiac Catheterization Date: 05/17/20 Summary: The patient has minor coronary artery disease and widely patent coronary anatomy. Normal left heart pressures and LV function with an estimated left ventricular ejection fraction of 60%. Recommendations: Continued risk factor modification and medical management of coronary artery disease.
[~2023-02-24 11:27] MED LIST changes: +DEXAMETHASONE SOD INJ 4 MG/ML VIAL ONE; +LACTATED RINGER'S 1,000 ML IV SCH; +LIDOCAINE 2% 2 ML VIAL/AMP(20MG/ML) INFIL ONE; -LR 15ML/HR IV SCH; +LR 60ML/HR IV SCH; +MIDAZOLAM HCL 1 MG/ML 2ML VIAL ONE; +ONDANSETRON INJ 2 MG/ML 2 ML VIAL ONE; +PROPOFOL IV EMULSION 10 MG/ML 20 ML VIAL IV ONE; +ROCURONIUM BROMIDE 10 MG/ML 5 ML VIAL IV ONE; +SUGAMMADEX SODIUM 200 MG/2 ML VIAL IV ONE; -ceFAZolin 2000MG 2,000 MG/15 ML SYR IV SCH; +fentaNYL citrate PF 100 MCG/2 ML VIAL ONE
[2023-02-24] MEDS ORDERED: ONDANSETRON INJ 2 MG/ML 2 ML VIAL IV PRN ×2 (12:02→16:35)
[2023-02-24] MEDS ORDERED: PROMETHAZINE HCL 6.25 MG in SODIUM CHLORIDE 0.9% 50 ML IV PRN (12:02)
[2023-02-24] MEDS ORDERED: ATROPINE SULFATE 0.1 MG/ML 10ML SYR IV PRN (12:02)
[2023-02-24] MEDS ORDERED: ePHEDrine sulfate 50 MG/ML AMP IV PRN (12:02)
[2023-02-24] MEDS ORDERED: HYDROmorphone INJ 2 MG/ML SYR/VIAL IV PRN (12:02)
--- NOTE | 2023-02-24 12:55 | History & Physical Bridge Note ---
Date of Service February 24, 2023 History & Physical Bridge Note I have examined the patient, reviewed the History & Physical and in the interval since the performance of the History & Physical I have noted the following changes of clinical significance: no changes noted
--- NOTE | 2023-02-24 12:56 | History & Physical Report ---
Date of Service February 24, 2023 Assessment & Plan (1) Neurogenic claudication due to lumbar spinal stenosis: Plan: L2-L3 decompression and fusion History of Present Illness Chief Complaint: Back and bilateral leg pain Primary Care Provider: Erin Brooke MD This is a 72-year-old male who presents with chronic persistent back and leg pain and failing course of nonoperative care is here for surgical intervention. Allergies Allergy/AdvReac Type Severity Reaction Status Date / Time No Known Allergies Allergy Verified 02/24/23 11:51 Home Medications Medication Instructions Recorded Confirmed Type levothyroxine 150 mcg tablet 150 mcg PO QAM 03/09/20 02/24/23 History multivitamin 1 tab PO QAM 03/09/20 02/24/23 History tamsulosin 0.4 mg capsule 0.4 mg PO HS #30 caps 11/14/21 02/24/23 Rx sildenafil (pulm.hypertension) 20 20 mg PO ONCE PRN sexual activity 08/29/22 02/24/23 Rx mg tablet #25 tabs aspirin 81 mg tablet,delayed 81 mg PO QAM 01/26/23 02/24/23 History release duloxetine 30 mg capsule,delayed 30 mg PO QAM 01/26/23 02/24/23 History release lisinopril 20 mg tablet 20 mg PO QAM 01/26/23 02/24/23 History metoprolol succinate 25 mg 25 mg PO QAM 01/26/23 02/24/23 History tablet,extended release 24 hr (Toprol XL) rosuvastatin 20 mg tablet 20 mg PO QAM 01/26/23 02/24/23 History Past Med/Surg History Medical History Depression Neuropathy Noted to hands and feet - reason started duloxetine Atrial flutter with rapid ventricular response ablation to treat NICM (nonischemic cardiomyopathy) EF 40-45% on 05/2020 ECHO Reason for Lisinopril per pt (denies HTN hx) Prediabetes Per records > no meds > diet controlled CKD (chronic kidney disease) Per records- Stage 3 > no specialist Anxiety Chronic back pain BPH (benign prostatic hyperplasia) Hypothyroidism Atrial fibrillation dx fall 2019 > Metoprolol > follows with Dr. Figueroa was on AC prior to ablation- now only on ASA 81mg Hyperlipidemia Surgical History History of cardiac radiofrequency ablation 2021 > [facility] S/P lumbar spine operation 2020 @ [facility] History of total hip arthroplasty bilat History of tonsillectomy History of cardiac cath Apr 2020 ([facility]) > no stents History of cardioversion 02/2020 @ [facility] History of cataract surgery bilat History of prostate surgery for enlargement History of colonoscopy History of tooth extraction Family History Mother Stroke Social History Smoking Status: Never smoker Tobacco Type: Smokeless Tobacco (Dip or Chew) Second Hand Exposure: No; Do You Dip or Chew Tobacco: Yes (few times weekly- advised NPO status); Tobacco Cessation Education Requested by Patient: No Hx Alcohol Use: Yes Alcohol type: beer, wine and hard liquor Hx Substance Use: No Preferred Language: Macedonian Communication Ability: Effective Sprinkler Fitter Required: No Beliefs That Will Affect Care: None marital status: Current Living Situation: Spouse Other Information That Helps Us Care for You: No Feels Safe at Home: Yes Safety Concerns: Feels Safe At This Time Assistive Devices: Glasses Physical Exam Physical Exam: Patient is alert and oriented Heart regular rhythm Lungs clear Results & Data Results & Data Vital Signs (Past 12 Hours) Vital Signs Temp Pulse Resp BP Pulse Ox O2 Del Method 02/24/23 12:42 53 L 144/79 H 02/24/23 11:55 36.5 C 55 L 16 167/108 H 98 Room Air
[2023-02-24] MEDS ORDERED: ceFAZolin 330 MG/ML 1 GM VIAL ONE (13:20)
[2023-02-24] MEDS ORDERED: BUPIVACAINE/EPINEPHRINE 0.25% 1:200,000 30 ML VIAL ONE (13:20)
[2023-02-24] MEDS ORDERED: FLOSEAL HEMOSTATIC MATRIX 10ML TOP ONE (14:24)
[2023-02-24] MEDS ORDERED: ePHEDrine sulfate 50 MG/ML AMP ONE (15:23)
[2023-02-24] MEDS ORDERED: KETOROLAC 30 MG/ML VIAL ONE (15:23)
--- NOTE | 2023-02-24 15:23 | Operative Report ---
Post Operative Report Pre & Post Diagnosis Operation Date: 02/24/23 12:55 Pre-Op Diagnosis: Neurogenic claudication due to lumbar spinal stenosis Post-Op Diagnosis: Neurogenic claudication due to lumbar spinal stenosis I identified the patient and participated in the time-out.: Yes Procedure Operation Date: 02/24/23 12:55 Actual Procedures #1 lumbar decompression with bilateral medial facetectomies and foraminotomies L1-L2 L2-3. #2 posterior spinal fusion L2-L3. #3 placed posterior instrumentation L2-L3. #4 interbody fusion L2 or 3. #5 placement spiral 10 x 26 mm 0203 pain #6 placement locally harvested morselized autograft posterior gutters. #7 placement of I factor interbody space and infuse collagen sponge, mass graft in the posterior lateral gutters. Surgeon Thom Valverde, Water Engineer Sheri Hutton Estimated Blood Loss 100 Findings Consistent with Post-Op Diagnosis Specimens None Indications This is a 72-year-old male known to me the presents above-mentioned diagnosis of failed course of nonoperative care is here for surgical invention. Description of Procedure Patient was met with identified informed consent obtained. Patient was then taken to the operative suite underwent patient placed in a prone position on the Terry table on top of the Misha frame. All bony prominences well-padded eyes inspected to ensure no external pressure placed upon the. This point lumbar spine was prepped and draped in normal sterile fashion. Sharp dissection with t he assistance of Bovie cautery to form down to and exposing the lamina transverse processes of L2 and instrumentation robby extending from L3-L4. I then proceeded to add a connector to the robby segment between L3 and L4 and locking into place. I then performed a complete laminectomy of L2 partial laminectomy of L1 addressing severe central and subarticular stenosis. Pedicle screws were then placed in L2 and by way of transforaminal approach on the right complete discectomy of L2-L3 was performed endplates guarded to subcortical bleeding bone and a 10 x 26 mm Spira cage filled with I factor tapped in position. The process robby was then placed and locked into position bilaterally. Transverse processes of L2 and L3 were then burred to subcortical and bone. Infuse collagen sponge, mass graft and local autograft was then placed in the posterior lateral gutters. 15 round JANELL drain inserted. The incision was then closed with 1 Vicryl to fascia 2-0 Vicryl subcutaneously and 4 Monocryl for final skin closure. Steri-Strips sterile dressing placed. Patient waken taken to PACU stable condition. Please note spinal cord monitoring was utilized at the procedure no changes noted. Lastly Sheri Hutton was present at the entire surgery involved patient positioning complex portion of the surgery and final skin closure. I attest to the content of the Intraoperative Record and any orders documented therein. Any exceptions are noted below.
--- NOTE | 2023-02-24 15:43 | Fluoroscopy Report ---
FL lumbar spine 2-3V CLINICAL HISTORY: L2-L3 DECOMPRESSION AND FUSION COMPARISON STUDY: None. FLUOROSCOPY TIME: 12 seconds FLUOROSCOPY IMAGES: 2 Ka,r: 11.5 mGy FINDINGS: Posterior decompression and fusion within the mid to lower lumbar spine. The exact levels a re difficult to assess on this spot image but appear to involve the L2-5 levels. The visualized hardw are is intact. IMPRESSION: Fluoroscopic assistance as above. ACT 112: Negative or not required by law. Electronically signed by: Raymond Edwards M.D. 02/24/2023 3:42 PM
[2023-02-24] MEDS: fentaNYL citrate PF 100 MCG/2 ML VIAL IV PRN ×4 (15:52→16:09)
--- NOTE | 2023-02-24 16:23 | Anesthesiology Progress Note ---
Date of Service February 24, 2023 Anesthesia Post Procedure Vital Signs Vital Signs: Temp Pulse Pulse Resp BP Pulse Ox O2 Del Method 02/24/23 16:20 36.5 C 59 L 16 167/84 H 100 Room Air 02/24/23 16:10 58 L 16 163/78 H 100 Room Air 02/24/23 16:00 58 L 14 162/82 H 99 Room Air 02/24/23 15:50 62 21 162/83 H 100 Room Air 02/24/23 15:40 53 L 12 135/66 100 Oxymask 02/24/23 15:34 36.3 C L 59 L 19 139/68 98 Oxymask 02/24/23 12:42 53 L 144/79 H 02/24/23 11:55 36.5 C 55 L 16 167/108 H 98 Room Air O2 Flow Rate 02/24/23 16:20 02/24/23 16:10 02/24/23 16:00 02/24/23 15:50 02/24/23 15:40 9 02/24/23 15:34 9 02/24/23 12:42 02/24/23 11:55 Pain Intensity Back: Pain Intensity: 4 Transfer of Care Handoff Completed per policy Notes Mental Status: alert / awake / arousable and participated in evaluation Patient Amnestic to Procedure: Yes Nausea / Vomiting: adequately controlled Pain: adequately controlled Airway Patency, RR, SpO2: stable & adequate BP & HR: stable & adequate Hydration State: stable & adequate Anesthetic Complications: no major complications apparent
[2023-02-24] MEDS ORDERED: ACETAMINOPHEN 500 MG TAB PO PRN (16:35)
[2023-02-24] MEDS ORDERED: LORazepam 0.5 MG TAB PO PRN (16:35)
[2023-02-24] MEDS ORDERED: ACETAMINOPHEN 1,000 MG/100 ML VIAL IV PRN (16:35)
[2023-02-24] MEDS ORDERED: PROMETHAZINE HCL 12.5 MG in SODIUM CHLORIDE 0.9% 50 ML IV PRN (16:35)
[2023-02-24] MEDS ORDERED: diphenhydrAMINE Capsule 25 MG CAP PO PRN (16:35)
[2023-02-24] MEDS ORDERED: LORazepam 0.5 MG in SYRINGE 0.25 ML IV PRN (16:35)
[2023-02-24] MEDS ORDERED: bisacodyL 10 MG SUPP PR PRN (16:35)
[2023-02-24] MEDS ORDERED: MAGNESIUM HYDROXIDE SUSP 30 ML UDC PO PRN (16:35)
[2023-02-24] MEDS ORDERED: DO NOT ADMINISTER PNEUMOCOCCAL VACCINE PRN (16:35)
[2023-02-24] MEDS ORDERED: METOCLOPRAMIDE HCL INJ 5 MG/ML 2 ML VIAL IV PRN (16:35)
[2023-02-24] MEDS ORDERED: hydrOXYzine HCl 25 MG TAB PO PRN (16:35)
[2023-02-24] MEDS ORDERED: HYDROmorphone INJ 1 MG/ML SYRINGE IV PRN (16:35)
[2023-02-24] MEDS ORDERED: HYDROmorphone INJ 0.5 MG/0.5 ML SYR IV PRN (16:35)
[2023-02-24] MEDS ORDERED: ALUMINUM/MAGNESIUM SUSP 30 ML UDC PO PRN (16:35)
[2023-02-24] MEDS ORDERED: SOD PHOSPHATE/SOD BIPHOSPHATE ENEMA 132 ML BTL PR PRN (16:35)
[2023-02-24] MEDS ORDERED: ONDANSETRON 4 MG OD TAB PO PRN (16:35)
[2023-02-24] MEDS ORDERED: NALOXONE HCL 0.4 MG/1 ML VIAL/CARP IV PRN (16:35)
[2023-02-24] MEDS ORDERED: FAMOTIDINE 20 MG TAB PO PRN (16:35)
[2023-02-24] MEDS ORDERED: DO NOT ADMINISTER FLU VACCINE PRN (16:35)
--- NOTE | 2023-02-24 17:01 | Hospitalist Consultation ---
Date of Consultation February 24, 2023 Assessment & Plan (1) Neurogenic claudication due to lumbar spinal stenosis: -S/p lumbar decompression fusion by Dr. Valverde of L2-L3. POD 0. Pain management, bowel regimen and DVT ppx per the primary team - PT/OT consults, pt is planning on outpatient therapy - Follow am CBC to monitor for acute blood loss, last hgb of 15.6 on 02/03/23 (2) NICM (nonischemic cardiomyopathy): (3) Atrial fibrillation: (4) Hyperlipidemia: - Pt has been well from cardiovascular standpoint - follow with [facility], last saw on 02/16/23 - Most recent echo from 02/16 showing EF of 60-64%, left ventricular diastolic function mildly abnormal. Mild mitral regurg present, mild tricuspid regurg present. Stable. - Can continue metoprolol succinate, baby aspirin to resume 24 hours postoperatively, lisinopril, rosuvastatin - Chronic, stable (5) CKD (chronic kidney disease): -Follow creatinine with a.m. labs -Chronic, stable (6) Hypothyroidism: -Continue levothyroxine 150 mcg daily Chronic, stable (7) BPH (benign prostatic hyperplasia): - Pt reports he has not been on Flomax for many years although previously was recommended by urology. Dempsey catheter in place. Void trial tomorrow. If needed, can start flomax - pt counseled at bedside DVT ppx: teds, scds Lines: 2 PIV FEN/GI: Clears with advancement to heart healthy diet as tolerates CODE: FULL Dispo: From home, likely to remain in the hospital x 1-2 days Supervising Physician Co-Signing Physician Notes Patient is a 72-year-old male with history of atrial flutter S/P ablation, hyperlipidemia, prediabetes, nonischemic cardiomyopathy, CKD, BPH, hypothyroidism and other medical problems was consulted for postop medical manag ement. Patient is doing well postoperatively. Patient underwent lumbar surgery for neurogenic claudication due to lumbar spinal stenosis. Reports having pain at surgical site but otherwise denies any chest pain, shortness of breath, dizziness, nausea, vomiting, abdominal pain. Reviewed personally records available at the time of consult. On exam patient is well-built and nourished, no apparent distress, normocephalic/atraumatic, EOMI, normal breath sounds, clear to auscultation, S1-S2, no murmur, no pedal edema, abdomen soft, nontender, normal bowel sounds, back: Surgical site in dressing+ drain, alert, awake, oriented, grossly no focal deficits. Postoperative state. Monitor for postop anemia. Transfuse PRBCs as needed. DVT prophylaxis, wound care, activity as per primary team. PT OT as able. Incentive spirometry. Pain control. Bowel regimen to prevent constipation. Continue home medications for hypothyroidism, BPH, atrial fibrillation, hyperlipidemia. Bladder scan as ne eded for any retention. I personally reviewed the record. Patient is interviewed and examined at bedside. Patient's care is coordinated with Bebe Hernandez PA-C. Please refer to the documentation above for details of patient's presentation and for discussion of other issues. History of Present Illness Reason for Consultation: Medical management Requesting Physician: Dr. Valverde Attending Physician: Thom Valverde, DO History of Present Illness This is a 72-year-old male with PMHx of atrial flutter, nonischemic cardiomyopathy, bradycardia, chronic diastolic CHF, CAD, HLD, CKD stage III, hypothyroidism, BPH and spinal stenosis who presents to the hospital for elective lumbar decompression by Dr. Valverde on 02/24/2023. Patient initially had back surgery in 2020 involving L3-S1, today presented for L1-L2 decompression fusion. He states that he has some lower back pain but is tolerable. His and son are present at bedside who supports the history. Patient states that his mouth is somewhat dry, has not yet trialed liquids after surgery but has a clear liquid tray delivered by food services while at bedside. He is taking all his medications per med rec as ordered except for Flomax which she states he has not taken for years. He reports having some numbness still in his left foot compared to the right, but can wiggle his toes and has full strength. His last bowel movement was this morning. Allergies Allergy/AdvReac Type Severity Reaction Status Date / Time No Known Allergies Allergy Verified 02/24/23 11:51 Home Medications Medication Instructions Recorded Confirmed Type levothyroxine 150 mcg tablet 150 mcg PO QAM 03/09/20 02/24/23 History multivitamin 1 tab PO QAM 03/09/20 02/24/23 History sildenafil (pulm.hypertension) 20 20 mg PO ONCE PRN sexual activity 08/29/22 02/24/23 Rx mg tablet #25 tabs aspirin 81 mg tablet,delayed 81 mg PO QAM 01/26/23 02/24/23 History release duloxetine 30 mg capsule,delayed 30 mg PO QAM 01/26/23 02/24/23 History release lisinopril 20 mg tablet 20 mg PO QAM 01/26/23 02/24/23 History metoprolol succinate 25 mg 25 mg PO QAM 01/26/23 02/24/23 History tablet,extended release 24 hr (Toprol XL) rosuvastatin 20 mg tablet 20 mg PO QAM 01/26/23 02/24/23 History Patient History Medical History Depression Neuropathy Noted to hands and feet - reason started duloxetine Atrial flutter with rapid ventricular response ablation to treat NICM (nonischemic cardiomyopathy) EF 40-45% on 05/2020 ECHO Reason for Lisinopril per pt (denies HTN hx) Prediabetes Per records > no meds > diet controlled CKD (chronic kidney disease) Per records- Stage 3 > no specialist Anxiety Chronic back pain BPH (benign prostatic hyperplasia) Hypothyroidism Atrial fibrillation dx fall 2019 > Metoprolol > follows with Dr. Figueroa was on AC prior to ablation- now only on ASA 81mg Hyperlipidemia Surgical History History of cardiac radiofrequency ablation 2021 > [facility] S/P lumbar spine operation 2020 @ [facility] History of total hip arthroplasty bilat History of tonsillectomy History of cardiac cath Apr 2020 ([facility]) > no stents History of cardioversion 02/2020 @ [facility] History of cataract surgery bilat History of prostate surgery for enlargement History of colonoscopy History of tooth extraction Family History Mother Stroke Social History Smoking Status: Never smoker Tobacco Type: Smokeless Tobacco (Dip or Chew) Second Hand Exposure: No; Do You Dip or Chew Tobacco: Yes (few times weekly- advised NPO status); Tobacco Cessation Education Requested by Patient: No Hx Alcohol Use: Yes Alcohol type: beer, wine and hard liquor Hx Substance Use: No Preferred Language: Azeri Communication Ability: Effective Boot And Shoe Laborer Required: No Beliefs That Will Affect Care: None marital status: Current Living Situation: Spouse Other Information That Helps Us Care for You: No Feels Safe at Home: Yes Safety Concerns: Feels Safe At This Time Assistive Devices: Glasses Review of Systems Review of Systems: Constitutional: No fever, sweats or chills Eyes: No diplopia, no worsening or blurred vision ENT: normal hearing, no trouble swallowing Respiratory: No cough, sputum, dyspnea at rest or on exertion Cardiovascular: No chest pain, tightness or palpitations Abdomen: No pain, nausea, vomiting, diarrhea or constipation Musculoskeletal: No joint pain, calf pain, swelling Neurologic: No weakness, numbness/tingling, or balance problems Psychiatric: No anxiety or depression Skin: No rash or itch Physical Exam Physical Exam: General: awake, alert, no apparent distress Head: Normocephalic, atraumatic ENT: PERRL, EOMI, no pharyngeal exudate, mucous membranes moist Chest: Clear to auscultation, on room air, no adventitious breath sounds Cardiac: Regular rate and rhythm, faint systolic murmur, no JVD, normal peripheral pulses, good capillary refill Abdominal: NABS x 4 quadrants, soft, nondistended, nontender to palpation, no rebound or guarding Back: Dressing C/D/I, JANELL drain draining serosanguineous bloody outs Extremities: Normal inspection, no peripheral edema or erythema, calfs nontender to palpation Psych: Normal mood and affect Neuro: AAO x 3, strength intact bilaterally and rated 5/5, no motor deficits, speech is clear, no peripheral sensory deficits Results & Data Results & Data Vital Signs (Past 12 Hours) Vital Signs Temp Pulse Pulse Resp BP Pulse Ox O2 Del Method 02/24/23 16:35 36.5 C 59 L 18 179/86 H 100 Room Air 02/24/23 16:20 36.5 C 59 L 16 167/84 H 100 Room Air 02/24/23 16:10 58 L 16 163/78 H 100 Room Air 02/24/23 16:00 58 L 14 162/82 H 99 Room Air 02/24/23 15:50 62 21 162/83 H 100 Room Air 02/24/23 15:40 53 L 12 135/66 100 Oxymask 02/24/23 15:34 36.3 C L 59 L 19 139/68 98 Oxymask 02/24/23 12:42 53 L 144/79 H 02/24/23 11:55 36.5 C 55 L 16 167/108 H 98 Room Air O2 Flow Rate 02/24/23 16:35 02/24/23 16:20 02/24/23 16:10 02/24/23 16:00 02/24/23 15:50 02/24/23 15:40 9 02/24/23 15:34 9 02/24/23 12:42 02/24/23 11:55
[2023-02-24] MEDS: LACTATED RINGER'S 1,000 ML IV SCH (17:05)
[2023-02-24] MEDS: oxyCODONE HCL IR 5 MG TAB (IMMEDIATE RELEASE) PO PRN ×2 (17:21→21:43)
--- OUTSIDE RECORDS SUMMARY | 2023-02-24 20:14 | External Medical Summary | Summary of Care ---
Author Name Unknown Organization [facility] Address [address] [place] [address] Phone [phone] Care Team Providers Care Lotteries Agent Name Role Phone Erin Brooke MD Primary Care Provide r Encounter Details Date Type Department Care Team (Late st Contact Info) Description 02/03/2023 Result Scan Unspecified Department <No scans attached> Allergies No known active allergiesdocumented as of this encounter (statuses as of 02/04/2023) Medications Medication Sig Dispensed Refills Start Date End Date Status One-A-Day Mens 50+ Oral Tablet Take 1 Tablet by mouth daily. 0 Active Zoster Vac Recomb Adjuvanted 50 MCG/0.5ML Intramuscular Suspension Reconstituted (Shingrix)Indication s:Need for shingles vaccine Inject 0.5 mL into a large muscle now and repeat dose in 60 to 180 days. Please fax date this was given to our office. 1 Each 1 04/03/2021 Active Additional Information Patient not taking.Reported on 06/02/2022 Aspirin EC 81 MG Oral Tablet Delayed Release Take 1 Tablet by mouth in the morning. 0 11/22/2021 Active Rosuvastatin Calcium 20 MG Oral Tablet (Crestor) Take 1 Tablet by mouth in the morning. 90 Tablet 3 04/24/2022 Active Levothyroxine Sodium 150 MCG Oral Tablet (Levoxyl) Take 1 Tablet by mouth daily. 90 Tablet 2 10/29/2022 Active Lisinopril 20 MG Oral Tablet (Prinivil)Indication s:HTN, goal below 140/90 Take 1 Tablet by mouth in the morning. 90 Tablet 2 10/29/2022 Active Metoprolol Succinate ER 25 MG Oral Tablet Extended Release 24 Hour (toPROL XL)Indications:Typic al atrial flutter (HCC),Nonischemic cardiomyopathy (HCC),Paroxysmal atrial fibrillation (HCC) Take 1 tablet by mouth daily 90 Tablet 2 10/29/2022 Active DULoxetine HCl 30 MG Oral Capsule Delayed Release Particles (Cymbalta)Indication s:Chronic pain of both knees Take 1 Capsule by mouth in the morning. Do not cut, crush or chew. 30 Capsule 5 12/05/2022 Active documented as of this encounter (statuses as of 02/04/2023) Active Problems Problem Noted Date Diagnosed Date Chronic diastolic heart failure 05/12/2022 HTN, goal below 140/90 03/07/2022 S/P ablation of atrial flutter 10/18/2021 Paroxysmal atrial fibrillation 10/08/2020 Coronary artery disease invo lving [place] coronary artery of [place] heart without angina pectoris 09/26/2020 Anxiety 07/24/2020 Dyslipidemia, goal LDL below 100 07/24/2020 Nonischemic cardiomyopathy 07/24/2020 Typical atrial flutter 06/20/2020 Spinal stenosis of lumbar re gion without neurogenic claudication 06/20/2020 Preop testing 05/18/2020 Family history of premature CAD 04/25/2020 Stage 3a chronic kidney disease 04/02/2020 Overview: Per CKD protocol - Per CKD protocol Atrial flutter 02/27/2020 Prediabetes 10/03/2019 Overview: Per Prediabetes protocol Chronic back pain 09/29/2019 Hypothyroidism 09/29/2019 BPH without obstruction/lower urinary tract symp toms 09/29/2019 documented as of this encounter (statuses as of 02/04/2023) Resolved Problems Problem Noted Date Diagnosed Date Resolved Date Chronic kidney disease, stage 3a 03/05/2020 04/05/2020 Overview: Per CKD protocol documented as of this encounter (statuses as of 02/04/2023) Immunizations Name Administration Dates Next Due COVID-19 mRNA, LNP-s, No Pre serve, 2-Dose Series (Pfizer) 01/29/2021,06/12/2020,05/22/2020 Covid-19, Mrna, Lnp-s, Pf, B ivalent, 30 Mcg, IM, 12 yrs and above (Pfizer) 12/10/2021 Pneumococcal Conjugate Vacc, 13 Valent (Prevnar) 09/29/2019 SEASONAL INFLUENZA, PF, 6 M & Above, IM , (FLULAVAL or FLUZONE) 12/27/2019 Seasonal Influenza, Quadriva lent Hd (Fluzone Hd) 12/05/2022,01/29/2022,11/30/2020 Zoster Vaccine Recombinant (Shingrix) 07/03/2022 documented as of this encounter Social History Tobacco Use Types Packs/Day Years Used Date Smoking Tobacco: Never Smokeless Tobacco: Current Chew Comments:occ chewing- maybe 1 can a month Alcohol Use Standard Drinks/Week Comments Yes 0 (1 standard drink = 0.6 oz pure alcohol) once to twice a week a beer, and holidays AUDIT-C Answer Date Recorded Frequency of Alcohol Consumption Monthly or less 09/29/2019 Average Number of Drinks Not on file 020 Frequency of Binge Drinking Not on file 11/2019 PHQ-2 Answer Date Recorded PHQ Adult Total Score 4 02/21/2022 Hunger Vital Sign Answer Date Recorded Within the past 12 months, y ou worried that your food would run out before you got the money to buy more. Never true 02/22/20 22 Within the past 12 months, t he food you bought just didn't last and you didn't have money to get more. Never true 02/21/2022 Sex and Gender Information Value Date Recorded Sex Assigned at Male 02/21/2021 9:12 AM EST Gender Identity Male 02/21/2021 9:12 AM EST Sexual Orientation Straight 02/21/2021 9: 12 AM EST Job Start Date Occupation Industry Not on file Not on file Not on file documented as of this encounter Plan of Treatment Upcoming Encounters Date Type Department Care Team (Fan st Contact Info) Description 02/06/2023 2:00 PM EST Office Visit Family [address] [phone] Margarita Lares PA-C [address] [place] [address] [place] [id number] 02/16/2023 8:00 AM EST Office Visit Cardiology, [facility] [address] [facility] [place] [id number] Genna Silverman PA-C [address] [place] [address] [place] [address] 03/25/2023 8:30 AM EST Office Visit Cardiology, [facility] [address] [facility] [place] [id number] Gary Figueroa, [address] [facility] [place] [id number] 05/26/2023 8:30 AM EST Nurse Only Ancillary [address] [place] [id number] [place], Nurse Annual [address] [place] [id number] 01/01/2024 1:00 PM EDT Office Visit [facility] [address] Emily Mckenzie, DO [address] [place] [address] Scheduled Procedures Name Priority Associated Diagnoses Date/Ti me COLONOSCOPY FLEXIBLE PROXIMA L DIAGNOSTIC Recall History of colonic polyps Health Maintenance Due Date Last Done Comments DTaP,Tdap,and Td Vaccines (1 - Tdap) 1969 Pneumococcal Vaccine: 65+ Years (2 - PPSV23 or PCV20) 11/24/2019 09/29/2019 Zoster Vaccines (2 of 2) 08/28/2022 07/03/2022 CKD HGB USE SMARTSET 80695 10/14/202202/03, 10/14/2021, 04/03/2021, Additional history exists CKD PHOS USE SMARTSET [id number] 10/30/202210/21, 10/22/2021, 06/20/2020 GFR 11/09/2022 02/03/2023, 04/24, 10/22/2021, Additional history exists COVID-19 Vaccine ( - 2022-24 season) 2022 12/10/2021, 01/29/2021, 06/12/2020, Additional history exists Depression Screening 02/21/2023 02/21/2022 Albumin/Creatinine Ratio 05/12/2023 05/12/2022, 09/21 HbA1c 05/12/2023 02/03/2023, 04/24, 04/03/2021, Additional history exists TSH 05/12/2023 05/12/2022, 03/23, 06/20/2020, Additional history exists COLONOSCOPY-EVERY 5 YRS AGES 18-100 10/24/2024 10/25/2019, 10/25/2019 Influenza Vaccine (FLU shot) Completed , 01/29/2022, 11/30/2020, Additional history exists GARDASIL-HPV IMMUNIZATION SERIES Aged Out No longer eligible based on patient's age to complete this topic Hepatitis B Aged Out No longer eligi ble based on patient's age to complete this topic MENINGOCOCCAL (MENACTRA/MENVEO) Aged Out No longer eligible based on patient's age to complete this topic documented as of this encounter Medical Devices Not on filedocumented as of this encounter Procedures Procedure Name Priority Date/Time Associated Diagnosis Comments EKG SCANNED RESULT 02/03/2023 documented in this encounter Results * EKG SCANNED RESULT (02/03/2023) 02/03/2023 No Physician Data Unknown EKG documented in this encounter Care Teams Lotteries Agent Relationship Specialty Start Date End Date Erin Brooke MD [address] [place] [address] [place] [id number] PCP - General Family Medicine 09/29/19 documented as of this encounter
--- OUTSIDE RECORDS SUMMARY | 2023-02-24 20:14 | External Medical Summary | Summary of Care ---
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 Dyslipidemia, goal LDL below 70 Preoperative cardiovascular examination Procedures ECHO, COMPLETE (2D), TRANS-THORACIC Genna Silverman PA-C [address] [place] [address] Referral ID Status Reason Start Date Expiration Date V isits Requested Visits Authorized [id number] Authorized Precert 02/17/2023 999 999 Reason for Visit * Reason Comments Follow Up Encounter Details Date Type Department Care Team (Late st Contact Info) Description 02/16/2023 8:00 AM EST Office Visit Cardiology, [facility] 132 [facility] [place] [address] Genna Silverman PA-C [address] [place] [address] Preoperative cardiovascular examination*; Nonischemic cardiomyopathy (HCC); Typical atrial flutter (HCC); Coronary artery 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 0 Active Zoster Vac Recomb Adjuvanted 50 MCG/0.5ML Intramuscular Suspension Reconstituted (Shingrix)Indications: Need for shingles vaccine Inject 0.5 mL into a large muscle now and repeat dose in 60 to 180 days. Please fax date this was given to our office. 1 Each 1 04/03/2021 Active Aspirin EC 81 MG Oral Tablet Delayed Release Take 1 Tablet by mouth in the morning. 0 11/22/2021 Active Rosuvastatin Calcium 20 MG Oral Tablet (Crestor) Take 1 Tablet by mouth in the morning. 90 Tablet 3 04/24/2022 Active Levothyroxine Sodium 150 MCG Oral Tablet (Levoxyl) Take 1 Tablet by mouth daily. 90 Tablet 2 10/29/2022 Active Lisinopril 20 MG Oral Tablet (Prinivil)Indications: HTN, goal below 140/90 Take 1 Tablet by mouth in the morning. 90 Tablet 2 10/29/2022 Active Metoprolol Succinate ER 25 MG Oral Tablet Extended Release 24 Hour (toPROL XL)Indications:Typical atrial flutter (HCC),Nonischemic cardiomyopathy (HCC),Paroxysmal atrial fibrillation (HCC) Take 1 tablet by mouth daily 90 Tablet 2 10/29/2022 Active DULoxetine HCl 30 MG Oral Capsule Delayed Release Particles (Cymbalta)Indications: Chronic pain of both knees Take 1 Capsule by mouth in the morning. Do not cut, crush or chew. 30 Capsule 5 12/05/2022 Active Sildenafil Citrate 20 MG Oral Tablet (Revatio) 1 Tablet. 0 05/27/2022 Active documented as of this encounter (statuses as of 02/16/2023) Active Problems Problem Noted Date Diagnosed Date Chronic diastolic heart failure 05/12/2022 HTN, goal below 140/90 03/07/2022 S/P ablation of atrial flutter 10/18/2021 Paroxysmal atrial fibrillation 10/08/2020 Coronary artery disease invo lving resighini coronary artery of resighini heart without angina pectoris 09/26/2020 Anxiety 07/24/2020 [...] as of this encounter (statuses as of 02/16/2023) Resolved Problems Problem Noted Date Diagnosed Date Resolved Date Chronic kidney disease, stage 3a 03/05/2020 04/05/2020 Overview: Per CKD protocol documented as of this encounter (statuses as of 02/16/2023) Immunizations Name Administration Dates Next Due COVID-19 mRNA, LNP-s, No Pre serve, 2-Dose Series (CloudFloor) 01/29/2021,06/12/2020,05/22/2020 Covid-19, Mrna, Lnp-s, Pf, B ivalent, [...] on file documented as of this encounter Last Filed Vital Signs Vital Sign Reading Time Taken Comments Blood Pressure 136/64 02/16/2023 7:55 AM EST Pulse 64 02/16/2023 7:55 AM EST Temperature - - Respiratory Rate 14 02/16/2023 7:55 AM EST Oxygen Saturation - - Inhaled Oxygen Concentration - - Weight 114.3 kg (252 lb) 02/16/2023 7:55 AM EST Height - - Body Mass Index 34.43 12/05/2022 4:46 PM EDT documented in this encounter Progress Notes * Genna Silverman PA-C - 02/16/2023 8:00 AM EST 02/16/2023 Cardiology Follow Up Primary Supervisor Whipped Topping: Dr. Figueroa Past Medical History: Atrial flutter found in 2019 and recurrent in 08/2021 started on metoprolol with dosing increasing and on coumadin [id number] (age, CAD); S/P CTI ablation 10/16/2021, now off anticoagulation. No recurrence NICM was 35% in 02/2020 then 40% in 05/2020 and improved further to 55% in 12/2020 Sinus bradycardia Chronic heart failure with preserved EF, NYHA Class II-III HLD CAD mild non-obstructive disease by cath in 2020 CKD stage III Hypothyroidism BPH Spinal stenosis-back pain HPI: Arturo Browne is a 72 year old male who presents for preop evaluation. Last evaluated in clinic approximately 8 months ago with Thalia Sheets PA-C. He is scheduled for lumbar spine decompression and fusion with Dr. Valverde at [facility] [place] on 02/24/23. Presents today feeling well. No acute cardiac complaints. Denies chest pain, shortness of breath, palpitations, dizziness, syncope or near syncope. No orthopnea, PND, or increased lower extremity edema. No fever, chills, cough, hematochezia, melena, or hemoptysis. He monitors his heart rate and rhythm through kardiamobile device about twice per week and notes regular/normal readings. Activity limited due to back pain, but does stretching, gardening, and yard work with no symptoms. Compliant with all medications. REVIEW OF SYSTEMS: See HPI for pertinent positives. All others negative other than those noted in the HPI. CONSTITUTIONAL: No change in weight, No weakness, No fatigue and No fevers, No sweats or chills. PULMONARY: No cough, sputum, or hemoptysis, No wheezing, No shortness of breath and No recent change in breathing. CARDIOVASCULAR: No chest pain, No dyspnea on exertion, No edema, No palpitations and No syncope. GASTROINTESTINAL: No abdominal pain, No change in bowel habits, No significant heartburn, No nausea, No vomiting, No diarrhea, No constipation, No blood in stools or black tarry stools. No dysphagia. HEMATOLOGIC: No abnormal bleeding and No bruising. NEUROLOGICAL: Normal balance, No headaches and No weakness. Review of patient's allergies indicates: No Known Allergies Current Outpatient Medications Medication Sig Dispense Refill One-A-Day Mens 50+ Oral Tablet Take 1 Tablet by mouth daily. Aspirin EC 81 MG Oral Tablet Delayed Release Take 1 Tablet by mouth in the morning. Rosuvastatin Calcium 20 MG Oral Tablet (Crestor) Take 1 Tablet by mouth in the morning. 90 Tablet 3 Levothyroxine Sodium 150 MCG Oral Tablet (Levoxyl) Take 1 Tablet by mouth daily. 90 Tablet 2 Lisinopril 20 MG Oral Tablet (Prinivil) Take 1 Tablet by mouth in the morning. 90 Tablet 2 Metoprolol Succinate ER 25 MG Oral Tablet Extended Release 24 Hour (toPROL XL) Take 1 tablet by mouth daily 90 Tablet 2 DULoxetine HCl 30 MG Oral Capsule Delayed Release Particles (Cymbalta) Take 1 Capsule by mouth in the morning. Do not cut, crush or chew. 30 Capsule 5 Sildenafil Citrate 20 MG Oral Tablet (Revatio) 1 Tablet. Zoster Vac Recomb Adjuvanted 50 MCG/0.5ML Intramuscular Suspension Reconstituted (Shingrix) Inject 0.5 mL into a large muscle now and repeat dose in 60 to 180 days. Please fax date this was given to our office. 1 Each 1 No current facility-administered medications for this visit. No past medical history on file. Family History Problem Relation Age of Onset Stroke Mother Heart disease Father [place] age 50 Prostate cancer Brother Social History Socioeconomic History Marital status: Tobacco Use Smoking status: Never Smokeless tobacco: Current Types: Chew Tobacco comments: occ chewing- maybe 1 can a month Vaping Use Vaping Use: Never used Substance and Sexual Activity Alcohol use: Yes Comment: once to twice a week a beer, and holidays Drug use: Never Social History Narrative for 54rs. As of 02/21/2022 Social Determinants of Health Food Insecurity: No Food Insecurity (02/21/2022) Hunger Vital Sign Worried About Running Out of Food in the Last Year: Never true Ran Out of Food in the Last Year: Never true OBJECTIVE/PHYSICAL EXAMINATION: BP 136/64 | Pulse 64 | Resp 14 | Wt 114.3 kg (252 lb) | BMI 34.43 kg/m | BSA 2.41 m General: No acute distress. A+Ox3. HEENT: Normocephalic. Atraumatic. PERRL. EOMI. Conjunctiva and sclera clear. NECK: No carotid bruits. No JVD. Carotid upstrokes are brisk. Heart: RRR. S1 and S2 noted. No murmur. No rubs or gallops. PMI non displaced. Lungs: Clear to auscultation. No wheezes. No rhonchi. No rales. Abdomen: Normal bowel sounds. Soft. Nontender. No masses or organomegaly. No abdominal bruits. Extremities: No edema. No clubbing or cyanosis. Pulses: radial=2/4, posterior tibial=2/4, dorsalis pedis = 2/4. NEURO: No focal deficits. PSYCH: Appropriate affect and insight. DATA Labs & Imaging Reviewed Below: EKG 02/16/23 Sinus bradycardia, 59 bpm JAICNTA report reviewed dated September 2021: A left atrial appendage is free of thrombus. No spontaneous contrast in any of the cardiac chambers despite the patient being in atrial flutter during the exam. No significant valvular pathology Left and right ventricular systolic function appeared to be preserved No contraindication to proceeding with the ablation procedure or cardioversion. Echocardiogram: 01/08/2021: The qualitative LV ejection fraction is 55-59% (normal). The LV wall thickness is mildly increased (concentric). The left ventricular diastolic function is moderately abnormal (grade II). The left atrium is mildly enlarged. Mild mitral regurgitation is present. Compared to last available study changes are noted as follows: Left ventricular systolic function has improved. 06/14/2020: The qualitative LV ejection fraction is 40-44% (mildly reduced). The base inferior wall appears thinned and moderately hypokinetic. The remaining left ventricular wall segments are mildly hypokinetic. Mild mitral regurgitation is present. Mild tricuspid regurgitation is present. Mild aortic valve regurgitation is present. Compared to last available study changes are noted as follows: Left ventricular systolic function has improved. 02/28/2020: The rhythm during the transthoracic echo examination was atrial flutter with rapid ventricular response. The qualitative LV ejection fraction is 35-39% (moderately reduced). The LV wall thickness is mildly increased (concentric). The base inferior wall appears thinned and akinetic. Otherwise, moderate to severe diffuse left ventricular hypokinesis. Mild mitral regurgitation is present. Cardiac Catheterization: 05/17/2020: LM: Ok LAD: LI Cx: LI RCA: dominant LI Nuclear Stress Test: 04/20/2020: Abnormal Lexiscan nuclear stress test. Stress test is positive for apical ischemia with otherwise normal perfusion. Mild hypokinesis involving the apical cap, otherwise, normal wall motion. EF calculated to be 56%. Labs reviewed from [facility]- 02/03/23 CBC, PT/INR, BMP unremarkable ASSESSMENT/PLAN: 72 year old year old male 1. Nonischemic cardiomyopathy (HCC) 2. Typical atrial flutter (HCC) 3. Coronary artery disease involving resighini coronary artery of resighini heart without angina pectoris 4. Dyslipidemia, goal LDL below 70 5. Preoperative cardiovascular examination - Patient doing well from cardiovascular standpoint, no anginal symptoms, euvolemic on exam - Continue all current cardiac medications including aspirin, lisinopril, metoprolol, rosuvastatin - For preop evaluation, recommend echo due to history of nonischemic cardiomyopathy and mild valvular disease - If echo stable, patient may proceed with surgery as planned from cardiac standpoint with no further cardiac testing recommended, discussed with patient that he is at moderate risk for perioperativeevents per Jh criteria. Preop EKG and lab work reviewed with no significant changes. DISPOSITION: Follow up as scheduled or sooner if symptoms worsen/fail to improve. All questions were answered to the patients satisfaction. Patient advised to report to ED with any and all emergencies. The patient agrees to the above plan and will call with additional questions or concerns. Genna Silverman PA-C [facility] [address] [facility] [address] I spent a total of 40 minutes on the date of service in preparation, delivery, and documentation ofthe care provided to Arturo Browne excluding any time spent in the performance of separately billed services. This chart was completed in part utilizing [employer] Speech Voice Recognition Software. Grammatical errors, random word insertions, pronoun errors, and incomplete sentences are an occasional consequence of this system due to software limitations, ambient noise, and hardware issues. Any formal questions or concerns about the content, text, or information contained within the body of this dictation should be directly addressed to the provider for clarification. documented in this encounter Procedure Notes * Jeremie Guerrero MD - 02/16/2023 8:04 AM ESTAssociated Order(s): EKG REASON FOR STUDY: pre op CONCLUSIONS: Sinus bradycardia Otherwise normal ECG When compared with ECG of 22-NOV-2021 12:41, No significant change was found Ventricular Rate: 59 Atrial Rate: 59 IA Interval: 192 QRS Duration: 104 QT/QTc: 406/401 ms P-R-T [place]: 61 : 29 : 19 degrees documented in this encounter Plan of Treatment Upcoming Encounters Date Type Department Care Team (Late st Contact Info) Description 02/16/2023 11:00 AM EST Cardiac Studies Cardiac Studies, [facility] 132 [facility] [place] [address] 03/25/2023 8:30 AM EST Office Visit Cardiology, [facility] 132 [facility] [place] [address] Gary Figueroa, DO 132 [facility] [place] [address] 05/26/2023 8:30 AM EST Nurse Only Ancillary [address] [place] [address] [place], Nurse [address] [place] [address] 01/01/2024 1:00 PM EDT Office Visit Neurology [facility] 200 [facility] [place] [address] Emily Mckenzie, DO [address] [place] [address] Scheduled Orders Name Type Priority Associated Diagnoses Orde r Schedule ECHO, COMPLETE (2D), TRANS-THORACIC Echocardiology Routine Typical atrial flutter (HCC) Nonischemic cardiomyopathy (HCC) Coronary artery disease involving resighini coronary artery of resighini heart without angina pectoris Dyslipidemia, goal LDL below 70 Preoperative cardiovascular examination Expected: 02/17/2023, Expires: 03/18/2025 Scheduled Procedures Name Priority Associated Diagnoses Date/Ti me COLONOSCOPY FLEXIBLE PROXIMA L DIAGNOSTIC Recall History of colonic polyps Health Maintenance Due Date Last Done Comments DTaP,Tdap,and Td Vaccines (1 - Tdap) 1969 Pneumococcal Vaccine: 65+ Years (2 - PPSV23 or PCV20) 11/24/2019 09/29/2019 Zoster Vaccines (2 of 2) 08/28/2022 07/03/2022 CKD PHOS USE SMARTSET 30988 10/30/202210/21, 10/22/2021, 06/20/2020 COVID-19 Vaccine ( season) 2022 12/10/2021, 01/29/2021, 06/12/2020, Additional history exists Depression Screening 02/21/2023 02/21/2022 Albumin/Creatinine Ratio 05/12/2023 05/12/2022, 09/21 TSH 05/12/2023 05/12/2022, 03/23, 06/20/2020, Additional history exists GFR 08/04/2023 02/03/2023, 04/24, 10/22/2021, Additional history exists CKD HGB USE SMARTSET 22003 02/04/202402/03, 10/14/2021, 04/03/2021, Additional history exists HbA1c 02/04/2024 02/03/2023, 04/24, 04/03/2021, Additional history exists COLONOSCOPY-EVERY 5 YRS AGES [...] Procedure Name Priority Date/Time Associated Diagnosis Comments IA ECG ROUTINE ECG W/LEAST 12 LDS TRCG ONLY W/O I&R Routine 02/16/2023 8:04 AM EST Typical atrial flutter (HCC) Nonischemic cardiomyopathy (HCC) Coronary artery disease involving resighini coronary artery of resighini heart without angina pectoris Dyslipidemia, goal LDL below 70 Preoperative cardiovascular examination documented in this encounter Results * EKG (02/16/2023 8:04 AM EST) 02/16/2023 8:04 AM EST Narrative Procedure Note Jeremie Guerrero MD - 02/16/2023 8:04 AM EST REASON FOR STUDY: pre op CONCLUSIONS: Sinus bradycardia Otherwise normal ECG When compared with ECG of 22-NOV-2021 12:41, No significant change was found Ventricular Rate: 59 Atrial Rate: 59 IA Interval: 192 QRS Duration: 104 QT/QTc: 406/401 ms P-R-T [place]: 61 : 29 : 19 degrees Genna Silverman PA-C EKG [facility] documented in this encounter Visit Diagnoses Diagnosis Preoperative cardiovascular examination- Primary Pre-operative cardiovascular examination Nonischemic cardiomyopathy (HCC) Other primary cardiomyopathies Typical atrial flutter (HCC) Atrial flutter Coronary artery disease involving resighini coronary artery of resighini heart without angina pectoris Dyslipidemia, goal LDL below 70 Other and unspecified hyperlipidemia documented in this encounter Care Teams Well Blower Relationship Specialty Start Date End Date Erin Brooke MD [address] [place] [address] [place] [id number] PCP - General Family Medicine 09/29/19 documented as of this encounter"
--- OUTSIDE RECORDS SUMMARY | 2023-02-24 20:14 | External Medical Summary | Summary of Care ---
Author Name Unknown Organization [facility] Address [address] [place] [address] Phone [phone] Care Team Providers Care Childcare Aide Name Role Phone Erin Brooke MD Primary Care Provide r Reason for Referral * Precert (Within 10 days (routine)) - Authorized Specialty Diagnoses / Procedures Referred By Shannon mckee Referred To Contact Cardiac Studies Diagnoses Typical atrial flutter (HCC) Nonischemic cardiomyopathy (HCC) Coronary artery disease involving [place] coronary artery of [place] heart without angina pectoris Dyslipidemia, goal LDL below 70 Preoperative cardiovascular examination Procedures ECHO, COMPLETE (2D), TRANS-THORACIC Genna Silverman PA-C [address] [place] [address] Referral ID Status Reason Start Date Expiration Date V isits Requested Visits Authorized [id number] Authorized Precert 02/17/2023 999 999 Reason for Visit * Reason Comments Follow Up Encounter Details Date Type Department Care Team (Late st Contact Info) Description 02/16/2023 8:00 AM EST Office Visit Cardiology, [facility] 132 [facility] [place] [address] Genna Silverman PA-C [address] [place] [address] Preoperative cardiovascular examination*; Nonischemic cardiomyopathy (HCC); Typical atrial flutter (HCC); Coronary artery disease involving [place] coronary artery of [place] heart without angina pectoris; Dyslipidemia, goal LDL [...] fibrillation 10/08/2020 Coronary artery disease invo lving [place] coronary artery of [place] heart without angina pectoris 09/26/2020 Anxiety 07/24/2020 [...] mRNA, LNP-s, No Pre serve, 2-Dose Series (Bio[employer]) 01/29/2021,06/12/2020,05/22/2020 Covid-19, Mrna, Lnp-s, Pf, B ivalent, [...] AM EST 02/16/2023 Cardiology Follow Up Primary Electrician Apprentice: Dr. Figueroa Past Medical History: Atrial flutter found in 2019 and recurrent in 08/2021 started on metoprolol with dosing increasing and on coumadin [id number] 2 (age, CAD); S/P CTI ablation 10/16/2021, [...] decompression and fusion with Dr. Valverde at [facility] on 02/24/23. Presents today feeling well. No [...] of Onset Stroke Mother Heart disease Father [place] age 50 Prostate cancer Brother Social History [...] Below: EKG 02/16/23 Sinus bradycardia, 59 bpm JACINTA report reviewed dated September 2021: A left [...] calculated to be 56%. Labs reviewed from [facility]- 02/03/23 CBC, PT/INR, BMP unremarkable ASSESSMENT/PLAN: 72 year old year old male 1. Nonischemic cardiomyopathy (HCC) 2. Typical atrial flutter (HCC) 3. Coronary artery disease involving [place] coronary artery of [place] heart without angina pectoris 4. Dyslipidemia, goal [...] questions or concerns. Genna Silverman PA-C [facility]iology, [address] [facility] [address] I spent a total of 40 minutes on the date of service in preparation, delivery, and documentation ofthe care provided to Arturo Browne excluding any time spent in the performance of separately billed services. This chart was completed in part utilizing [employer] Speech Voice Recognition Software. Grammatical errors, random [...] found Ventricular Rate: 59 Atrial Rate: 59 PA Interval: 192 QRS Duration: 104 QT/QTc: 406/401 ms P-R-T [place]: 61 : 29 : 19 degrees documented in this encounter Plan of Treatment Upcoming Encounters Date Type Department Care Team (Late st Contact Info) Description 02/16/2023 11:00 AM EST Cardiac Studies Cardiac Studies, [facility] 132 [facility] [place] [address] 03/25/2023 8:30 AM EST Office Visit Cardiology, [facility] 132 [facility] [place] [address] Gary Figueroa, DO 132 [facility] [place] [address] 05/26/2023 8:30 AM EST Nurse Only Ancillary [address] [place] [address] [place], Nurse [address] [place] [address] 01/01/2024 1:00 PM EDT Office Visit Neurology [facility] 200 [facility] [place] [address] Emily Mckenzie, DO [address] [place] [address] Scheduled Orders Name Type Priority Associated Diagnoses Orde r Schedule ECHO, COMPLETE (2D), TRANS-THORACIC Echocardiology Routine Typical atrial flutter (HCC) Nonischemic cardiomyopathy (HCC) Coronary artery disease involving [place] coronary artery of [place] heart without angina pectoris Dyslipidemia, goal LDL [...] 2) 08/28/2022 07/03/2022 CKD PHOS USE SMARTSET 70304 10/30/202210/21, 10/22/2021, 06/20/2020 COVID-19 Vaccine ( season) 2022 12/10/2021, 01/29/2021, 06/12/2020, Additional history exists Depression Screening 02/21/2023 02/21/2022 Albumin/Creatinine Ratio 05/12/2023 05/12/2022, 09/21 TSH 05/12/2023 05/12/2022, 03/23, 06/20/2020, Additional history exists GFR 08/04/2023 02/03/2023, 04/24, 10/22/2021, Additional history exists CKD HGB USE SMARTSET 78680 02/04/202402/03, 10/14/2021, 04/03/2021, Additional history exists HbA1c [...] Procedure Name Priority Date/Time Associated Diagnosis Comments PA ECG ROUTINE ECG W/LEAST 12 LDS TRCG ONLY W/O I&R Routine 02/16/2023 8:04 AM EST Typical atrial flutter (HCC) Nonischemic cardiomyopathy (HCC) Coronary artery disease involving [place] coronary artery of [place] heart without angina pectoris Dyslipidemia, goal LDL [...] found Ventricular Rate: 59 Atrial Rate: 59 PA Interval: 192 QRS Duration: 104 QT/QTc: 406/401 ms P-R-T [place]: 61 : 29 : 19 degrees Genna Silverman PA-C [facility] documented in this encounter Visit Diagnoses Diagnosis Preoperative cardiovascular examination- Primary Pre-operative cardiovascular examination Nonischemic cardiomyopathy (HCC) Other primary cardiomyopathies Typical atrial flutter (HCC) Atrial flutter Coronary artery disease involving [place] coronary artery of [place] heart without angina pectoris Dyslipidemia, goal LDL below 70 Other and unspecified hyperlipidemia documented in this encounter Care Teams Childcare Aide Relationship Specialty Start Date End Date Erin Brooke MD [address] [place] [address] [place] [id number] PCP - General Family Medicine 09/29/19 documented as of this encounter"
--- OUTSIDE RECORDS SUMMARY | 2023-02-24 20:14 | External Medical Summary | Summary of Care ---
Author Name Unknown Organization [facility] Address [address] [facility] [place] [address] Phone [phone] Care Team Providers Care Fisheries Officer Name Role Phone Erin Brooke MD Primary Care Provide r Encounter Details Date Type Department Care Team (Late st Contact Info) Description 02/04/2023 Orders Only Family Medicine [address] [place] [phone] Erin Brooke MD [address] [place] [address] [place], [place] [id number] Allergies No known active allergiesdocumented as of [...] fibrillation 10/08/2020 Coronary artery disease invo lving [place] coronary artery of [place] heart without angina pectoris 09/26/2020 Anxiety 07/24/2020 [...] mRNA, LNP-s, No Pre serve, 2-Dose Series (USEUM) 01/29/2021,06/12/2020,05/22/2020 Covid-19, Mrna, Lnp-s, Pf, B ivalent, [...] Care Team (Late st Contact Info) Description 02/06/2023 2:00 PM EST Office Visit Family Medicine [address] [place] [phone] Margarita Lares PA-C [address] [place] [address] [place] [phone] 02/16/2023 8:00 AM EST Office Visit Cardiology, [facility] [address] [facility] [place] [address] Genna Silverman PA-C [address] [place] [address] [place] [address] 03/25/2023 8:30 AM EST Office Visit Cardiology, [facility] [address] [facility] [place] [address] Gary Figueroa, [address] [facility] [place] [address] 05/26/2023 8:30 AM EST Nurse Only Ancillary [address] [place] [address] [place], Nurse [address] [place] [address] 01/01/2024 1:00 PM EDT Office Visit Neurology [facility] [address] [facility] [place] [address] Emily Mckenzie, DO [address] [place] [address] Scheduled Procedures Name Priority Associated Diagnoses Date/Ti me COLONOSCOPY FLEXIBLE PROXIMA L DIAGNOSTIC Recall History of colonic polyps Health Maintenance Due Date Last Done Comments DTaP,Tdap,and Td Vaccines (1 - Tdap) 1969 Pneumococcal Vaccine: 65+ Years (2 - PPSV23 or PCV20) 11/24/2019 09/29/2019 Zoster Vaccines (2 of 2) 08/28/2022 07/03/2022 CKD HGB USE SMARTSET 07340 10/14/202202/03, 10/14/2021, 04/03/2021, Additional history exists CKD PHOS USE SMARTSET 51854 10/30/202210/21, 10/22/2021, 06/20/2020 GFR 11/09/2022 02/03/2023, 04/24, 10/22/2021, Additional history exists COVID-19 Vaccine ( season) 2022 12/10/2021, 01/29/2021, [...] Procedure Name Priority Date/Time Associated Diagnosis Comments XR CHEST 2 VIEWS Routine 02/03/2023 CHEMISTRY-OUTSIDE Routine 02/03/2023 documented in this encounter Results * (ABNORMAL) CHEMISTRY-OUTSIDE (02/03/2023) Not all results display below - see scan for full detail OUTSIDE LAB (SEE SCANNED REPORT) Comment:SCAN INCLUDES: CBCD, PT/INR, PTT, HGB A1C, BMP, UA CREATININE-OUTSI DE LAB 1.25 0.6 - 1.4 MG/DL OUTSIDE LAB (SEE SCANNED REPORT) EGFR-OUTSIDE LAB 56.8 ML/MIN OUT SIDE LAB (SEE SCANNED REPORT) POTASSIUM-OUTSID E LAB 5.0 3.5 - 5.1 MMOL/L OUTSIDE LAB (SEE SCANNED REPORT) GLUCOSE-OUTSIDE LAB 108(A) 70 - 99 MG/DL OUTSIDE LAB (SEE SCANNED REPORT) HOURS FASTING OUTSID E LAB (SEE SCANNED REPORT) TRIGLYCERIDES-OU TSIDE LAB OUTSIDE LAB (SEE SCANNED REPORT) CHOLESTEROL-OUTS FERNANDA LAB OUTSIDE LAB (SEE SCANNED REPORT) HDL-OUTSIDE LAB OUTS FERNANDA LAB (SEE SCANNED REPORT) CHOL/HDL RATIO-OUTSIDE LAB OUTSIDE LAB (SEE SCANNED REPORT) LDL (CALCULATED)-OUT SIDE LAB OUTSIDE LAB (SEE SCANNED REPORT) LDL (DIRECT MEASURE)-OUTSIDE LAB OUTSIDE LAB (SEE SCANNED REPORT) HEMOGLOBIN, V4C-DTAIHOY LAB 6.2(A) 4.5 - 5.6 % OUTSIDE LAB (SEE SCANNED REPORT) PHOSPHORUS-OUTSI DE LAB OUTSIDE LAB (SEE SCANNED REPORT) PTH-OUTSIDE LAB OUTS FERNANDA LAB (SEE SCANNED REPORT) MICROALBUMIN RATIO-OUTSIDE LAB OUTSIDE LAB (SEE SCANNED REPORT) PROTEIN, UA-OUTSIDE LAB NEGATIVE NEGATIVE OUTSIDE LAB (SEE SCANNED REPORT) HEMOGLOBIN-OUTSI DE LAB 15.6 14.0 - 18.0 G/DL OUTSIDE LAB (SEE SCANNED REPORT) 02/03/2023 Thom Valverde DO LABORATORY OUTSIDE LAB (SEE SCANNED REPORT) * XR CHEST 2 VIEWS (02/03/2023) Anatomical Region Laterality Modality Chest Other 02/03/2023 Thom Valverde DO RADIOLOGY ( RAD GENERAL) documented in this encounter Care Teams Fisheries Officer Relationship Specialty Start Date End Date Erin Brooke MD [address] [place] [address] [place] [phone] PCP - General Family Medicine 09/29/19 documented as of this encounter
--- OUTSIDE RECORDS SUMMARY | 2023-02-24 20:14 | External Medical Summary | Summary of Care ---
Author Name Unknown Organization [facility] Address [address] [place] [address] Phone [phone] Care Team Providers Care Chief Analytics Officer Name Role Phone Erin Brooke MD Primary Care Provide r Reason for Referral * Evaluate & Treat - Unlimited Visits (Within 30 days (routine)) - Authorized Specialty Diagnoses / Procedures Referred By Shannon mckee Referred To Contact Neurology Diagnoses Memory problem Erin Brooke MD [address] [place] [address] [place] [id number] Referral ID Status Reason Start Date Expiration Date Visits Requested Visits Authorized [id number] Authorized Specialty Services Required 12/05/[phone] Question Answer Referral Priority Within 30 days (routine) [facility] NEUROLOGY REFERRAL QUESTIONS Memory/Cognition Reason for Visit * Reason Onset Date Comments Re-Check Medication Administration 12/05/2022 Flu an d/or Pneumo Inj Encounter Details Date Type Department Care Team Description 12/05/2022 Office Visit Family Medicine [address] [place] [phone] Erin Brooke MD [address] [place] [address] [place] [phone] Stage 3a chronic kidney disease*; Need for prophylactic vaccination and inoculation against influenza; HTN, goal below 140/90; Chronic pain of both knees; Memory problem Allergies No known active allergiesdocumented as of this encounter (statuses as of 12/05/2022) Medications Medication Sig Dispensed Refills Start Date End Date Status One-A-Day Mens 50+ Oral Tablet Take 1 Tablet by mouth daily. 0 Active Zoster Vac Recomb Adjuvanted 50 MCG/0.5ML Intramuscular Suspension Reconstituted (Shingrix)Indicatio ns:Need for shingles vaccine Inject 0.5 mL into [...] 10/29/2022 Active Lisinopril 20 MG Oral Tablet (Prinivil)Indicatio ns:HTN, goal below 140/90 Take 1 Tablet by mouth in the morning. 90 Tablet 2 10/29/2022 Active Metoprolol Succinate ER 25 MG Oral Tablet Extended Release 24 Hour (toPROL XL)Indications:Typi salvador atrial flutter (HCC),Nonischemic cardiomyopathy (HCC),Paroxysmal atrial fibrillation (HCC) Take 1 tablet by mouth daily 90 Tablet 2 10/29/2022 Active DULoxetine HCl 30 MG Oral Capsule Delayed Release Particles (Cymbalta)Indicatio ns:Chronic pain of both knees Take 1 Capsule by mouth in the morning. Do not cut, crush or chew. 30 Capsule 5 12/05/2022 Active Docusate Sodium 50 MG Oral Capsule (Colace) Take 1 Capsule by mouth in the morning. 0 3 Discontinu ed(Patient preference /discontin uation) oxyCODONE HCl 5 MG Oral Tablet (Oxy IR) Take 1 Tablet by mouth every 6 hours as needed for Pain, Severe. 30 Tablet 0 09/24/2021 3 Discontinu ed(End of Procedure) documented as of this encounter (statuses as of 12/05/2022) Active Problems Problem Noted Date Chronic diastolic heart failure 05/12/19 23 HTN, goal below 140/90 03/07/2022 S/P ablation of atrial flutter 2 Paroxysmal atrial fibrillation 1 Coronary artery disease invo lving [place] coronary artery of [place] heart without angina pectoris 09/26/2020 Anxiety 07/24/2020 Dyslipidemia, goal LDL below 100 021 Nonischemic cardiomyopathy 07/24/2020 Typical atrial flutter 06/20/2020 Spinal stenosis of lumbar region without neurogenic claudication 06/20/2020 Preop testing 05/18/2020 Family history of premature CAD 04/25/19 21 Stage 3a chronic kidney disease 04/02/19 21 Overview: Per CKD protocol - Per CKD protocol Atrial flutter 02/27/2020 Prediabetes 10/03/2019 Overview: Per Prediabetes protocol Chronic back pain 09/29/2019 Hypothyroidism 09/29/2019 BPH without obstruction/lower urinary tr act symptoms 09/29/2019 documented as of this encounter (statuses as of 12/05/2022) Resolved Problems Problem Noted Date Resolved Date Chronic kidney disease, stage 3a 03/05/2020 04/05/2020 Overview: Per CKD protocol documented as of this encounter (statuses as of 12/05/2022) Immunizations Name Administration Dates Next Due COVID-19 mRNA, LNP-s, No Pre serve, 2-Dose Series (Pfizer) 01/29/2021,06/12/2020,05/22/2020 Covid-19, Mrna, Lnp-s, Pf, B ivalent, 30 Mcg, IM, 12 yrs and above (Pfizer) 12/10/2021 Pneumococcal Conjugate Vacc, 13 Valent (Prevnar) 09/29/2019 Seasonal Influenza, PF, 6 mo ns & Above, IM , (Flulaval) 12/27/2019 Seasonal Influenza, Quadriva lent Hd (Fluzone Hd) 12/05/2022,01/29/2022,11/30/2020 Zoster Vaccine Recombinant (Shingrix) 07/03/2022 documented as of this encounter Social History Tobacco Use Types Packs/Day Years Used Date Smoking Tobacco: Never Smokeless Tobacco: Current Chew Tobacco Cessation:Ready to Q uit: No; Counseling Given: Yes Comments:occ chewing- maybe 1 can a month Alcohol Use Standard Drinks/Week Comments Yes 0 (1 standard drink = 0.6 oz pure alcohol) once to twice a week a beer, and holidays Alcohol Habits Answer Date Recorded How often do you have a drink containing alcohol ? Monthly or less 09/29/2019 How many drinks containing a lcohol do you have on a typical day when you are drinking? Not asked How often do you have six or more drinks on one occasion? Not asked Food Insecurity Answer Date Recorded Within the past 12 months, y ou worried that your food would run out before you got money to buy more. Never true 02/21/2022 Within the past 12 months, t he food you bought just didn't last and you didn't have money to get more. Never true 02/21/2022 Sex Assigned at Date Recorded Male 02/21/2021 9:[address] Job Start Date Occupation Industry Not on file Not on file Not on file documented as of this encounter Last Filed Vital Signs Vital Sign Reading Time Taken Comments Blood Pressure 138/84 12/05/2022 4:46 PM EDT Pulse 54 12/05/2022 4:46 PM EDT Temperature 35.9 C (96.6 F) 12/05/2022 4:46 PM ED T Respiratory Rate 16 12/05/2022 4:46 PM EDT Oxygen Saturation 96% 12/05/2022 4:46 PM EDT Inhaled Oxygen Concentration - - Weight 112.7 kg (248 lb 6.4 oz) 12/05/2022 4:46 PM EDT Height 182.2 cm (5' 11.73") 12/05/2022 4:46 PM E DT Body Mass Index 33.94 12/05/2022 4:46 PM EDT documented in this encounter Progress Notes * Erin Brooke MD - 12/05/2022 4:47 PM EDT Subjective: HPI: Arturo Browne is a 72 year old male with hx of Aflutter/Afib s/p Cardioversion, Hypothyroidism, prediabetes, CKD III, chronic back pain, Lumbar spine stenosis with radiculopathy s/p surgery (2020), DDD, Non ischemic cardiomyopathy, HTN seen for Chronic b/l numbness/tingling of the first 4 fingers - denied any weakness - denied any swelling of the wrist - notice it more after activities Having chronic knee pain and b/l leg tingling/numbness has some concerns regarding pt's memory - ex: sometimes forgets certain words, 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 and sometimes have difficulty with math - no forgetting people's name - denied any hallucination or delusion - denied any change in gait or urinary incontinence Patient Active Problem List Diagnosis Code Chronic back pain M54.9, G89.29 Hypothyroidism E03.9 BPH without obstruction/lower urinary tract symptoms N40.0 Prediabetes R73.03 Atrial flutter (HCC) I48.92 Stage 3a chronic kidney disease N18.31 Family history of premature CAD Z82.49 Preop testing Z01.818 Typical atrial flutter (HCC) I48.3 Spinal stenosis of lumbar region without neurogenic claudication M48.061 Anxiety F41.9 Dyslipidemia, goal LDL below 100 E78.5 Nonischemic cardiomyopathy (HCC) I42.8 Coronary artery disease involving [place] coronary artery of [place] heart without angina pectoris I25.10 Paroxysmal atrial fibrillation (HCC) I48.0 S/P ablation of atrial flutter Z98.890, Z86.79 HTN, goal below 140/90 I10 Chronic diastolic heart failure (HCC) I50.32 Current Outpatient Medications Medication Sig Dispense Refill DULoxetine HCl 30 MG Oral Capsule Delayed Release Particles (Cymbalta) Take 1 Capsule by mouth in the morning. Do not cut, crush or chew. 30 Capsule 5 One-A-Day Mens 50+ Oral Tablet Take 1 Tablet by mouth daily. Zoster Vac Recomb Adjuvanted 50 MCG/0.5ML Intramuscular Suspension Reconstituted (Shingrix) Inject 0.5 mL into a large muscle now and repeat dose in 60 to 180 days. Please fax date this was given to our office. (Patient not taking: Reported on 06/02/2022) 1 Each 1 Aspirin EC 81 MG Oral Tablet Delayed [...] tablet by mouth daily 90 Tablet 2 No current facility-administered medications for this visit. No past medical history on file. Past Surgical History: Procedure Laterality Date COLONOSCOPY, DIAGNOSTIC (RECTUM) 10/25/2019 sigmoid diverticulosis/biopsies show adenomatous polyps/recall 5 years, health permitting/COLONOSCOPY FLEXIBLE PROXIMAL DIAGNOSTIC performed by Monse Villa MD at [facility] OTHER (INFORMATION) 08/07/[address] and plates Dr[address] Valverde TOTAL HIP REPLACEMENT & PROSTHESIS Bilateral Review of patient's allergies indicates: No Known Allergies Family History Problem Relation Age of Onset Stroke Mother Heart disease Father [place] age 50 Prostate cancer Brother Social History Tobacco Use Smoking status: Never Smokeless tobacco: Current Types: Chew Tobacco comments: occ chewing- maybe 1 can a month Substance Use Topics Alcohol use: Yes Comment: once to twice a week a beer, and holidays Vaping/E-Cigarette Use Vaping/E-Cigarette Use Never User Vaping/E-Cigarette Substances Vaping/E-Cigarette Devices ROS: -Per HPI OBJECTIVE: BP 138/84 | Pulse 54 | Temp 35.9 C (96.6 F) (Tympanic) | Resp 16 | Ht 1.822 m (5' 11.73") | Wt 112.7 kg (248 lb 6.4 oz) | SpO2 96% | BMI 33.94 kg/m | BSA 2.39 m PHYSICAL EXAM: Vitals are reviewed General:. NAD, well developed HEENT:. Normal Conjunctiva, EOMI Cardiac:. Normal S1, S2, no murmur Lungs:. CTA, no wheezing or crackles MSK:. Normal gait Psych:. normal affect ASSESSMENT/PLAN: Stage 3a chronic kidney disease (Primary) - BASIC METABOLIC PANEL - ALBUMIN / CREATININE RATIO, URINE Need for prophylactic vaccination and inoculation against influenza - INFLUENZA VACC, QUAD, HIGH DOSE (FLUZONE HD) HTN, goal below 140/90 - BASIC METABOLIC PANEL - ALBUMIN / CREATININE RATIO, URINE Chronic pain of both knees - DULoxetine HCl 30 MG Oral Capsule Delayed Release Particles (Cymbalta); Take 1 Capsule by mouth in the morning. Do not cut, crush or chew. Memory problem - NEUROLOGY REFERRAL OP Follow Up: Return in about 6 months (around 06/05/2023). Erin Brooke MD Family medicine, [place] [phone] * Lamar Rollins LPN - 12/05/2022 4:45 PM EDT PRE - ADMINISTRATION DOCUMENTATION Are you experiencing any cold symptoms or fever? No Have you had Guillain-Sinclair Syndrome (an illness that causes paralysis) within the last 6 weeks? No Have you had the flu shot in the past? YES Have you ever had a reaction to the flu shot? No Lamar Rollins LPN, 12/05/2022 4:45 PM Immunization Administration Documentation Time Out Procedure Performed: Yes Patient Identified (Ask Name/Date of ): Yes Does the patient have a fever greater than 101 degrees today? No Patient allergic to latex? No VFC Stock: No Immunization(s) verified: Yes, Immunization Name: Flu, VIS Sheet(s) given: Yes Verified Side and Site: Yes Verified Shot(s) with Parent(s)/Patient: Yes documented in this encounter Nursing Notes * Lamar Rollins LPN - 12/05/2022 4:44 PM EDT Pt here for check up Having some numbness in tips of fingers - bilateral hands x 3 months - staying about the same Denies any pain with this Has been having bilateral knee pain Denies any recent injury documented in this encounter Plan of Treatment Upcoming Encounters Date Type Specialty Care Team Description 02/24/2023 Nurse Only Ancillary Gracie Nurse Annual [address] [place] [phone] 03/25/2023 Office Visit Cardiology Gary Figueroa, [address] [place] [address] 01/01/2024 Office Visit [facility] [address] [facility] [address] Scheduled Orders Name Type Priority Associated Diagnoses Orde r Schedule BASIC METABOLIC PANEL Lab Routine HTN, goal below 140/90 Stage 3a chronic kidney disease Ordered: 12/05/2022 ALBUMIN / CREATININE RATIO, URINE Lab Routine HTN, goal below 140/90 Stage 3a chronic kidney disease Ordered: 12/05/2022 Scheduled Procedures Name Priority Associated Diagnoses Date/Ti me COLONOSCOPY FLEXIBLE PROXIMA L DIAGNOSTIC Recall History of colonic polyps Scheduled Referrals Name Type Priority Associated Diagnoses Orde r Schedule NEUROLOGY REFERRAL OP Referral Within 30 days (routine) Memory problem Ordered: 12/05/2022 Health Maintenance Due Date Last Done Comments DTaP,Tdap,and Td Vaccines (1 - Tdap) 1969 Pneumococcal Vaccine: 65+ Years (2 - PPSV23 or PCV20) 11/24/2019 09/29/2019 Zoster Vaccines (2 of 2) 08/28/2022 07/03/2022 CKD HGB USE SMARTSET 18016 10/14/202210/14, 04/03/2021, 04/03/2021, Additional history exists CKD PHOS USE SMARTSET 64236 10/30/202210/21, 10/22/2021, 06/20/2020 GFR 11/09/2022 05/12/2022, 08/04/2021, 10/14/2021, Additional history exists Depression Screening 02/21/2023 02/21/2022 Albumin/Creatinine Ratio 05/12/2023 05/12/2022, 09/21 HbA1c 05/12/2023 05/12/2022, 03/23, 09/29/2019 TSH 05/12/2023 05/12/2022, 03/23, 06/20/2020, Additional history exists COLONOSCOPY-EVERY 5 YRS AGES 18-100 10/24/2024 10/25/2019, 10/25/2019 COVID-19 Vaccine Completed 12/10/2021, 11/2020, 06/12/2020, Additional history exists Influenza Vaccine (FLU shot) Completed , 01/29/2022, [...] Not on filedocumented as of this encounter Visit Diagnoses Diagnosis Stage 3a chronic kidney disease- Primary Need for prophylactic vaccination and inoculation against influenza HTN, goal below 140/90 Unspecified essential hypertension Chronic pain of both knees Memory problem Memory loss documented in this encounter Care Teams Chief Analytics Officer Relationship Specialty Start Date End Date Erin Brooke MD [address] [place] [address] [place] [phone] PCP - General Family Medicine 09/29/19 documented as of this encounter
--- OUTSIDE RECORDS SUMMARY | 2023-02-24 20:14 | External Medical Summary | Summary of Care ---
Author Name Unknown Organization [facility] Address [address] [place] [address] Phone [phone] Care Team Providers Care Steward/Stewardess Second Class Name Role Phone Erin Brooke MD Primary Care Provide r Reason for Visit * Reason Comments eRx-Medication Refill Encounter Details Date Type Department Care Team Description 10/28/2022 Refill Family Medicine [address] [id number] Erin Brooke MD [address] [place] [address] [place] [address] HTN, goal below 140/90; Typical atrial flutter (HCC); Nonischemic cardiomyopathy (HCC); Paroxysmal atrial fibrillation (HCC) Allergies No known active allergiesdocumented as of this encounter (statuses as of 10/29/2022) Medications Medication Sig Dispensed Refills Start Date End Date Status One-A-Day Mens 50+ Oral Tablet Take 1 Tablet by mouth daily. 0 Active Docusate Sodium 50 MG Oral Capsule (Colace) Take 1 Capsule by mouth in the morning. 0 Active Zoster Vac Recomb Adjuvanted 50 MCG/0.5ML Intramuscular Suspension Reconstituted (Shingrix)Indicatio ns:Need for shingles vaccine Inject 0.5 mL into a large muscle now and repeat dose in 60 to 180 days. Please fax date this was given to our office. 1 Each 1 2 Active Additional Information Patient not taking.Reported on 06/02/2022 oxyCODONE HCl 5 MG Oral Tablet (Oxy IR) Take 1 Tablet by mouth every 6 hours as needed for Pain, Severe. 30 Tablet 0 2 Active Aspirin EC 81 MG Oral Tablet Delayed Release Take 1 Tablet by mouth in the morning. 0 2 Active Rosuvastatin Calcium 20 MG Oral Tablet (Crestor) Take 1 Tablet by mouth in the morning. 90 Tablet 3 3 Active Levothyroxine Sodium 150 MCG Oral Tablet (Levoxyl) Take 1 Tablet by mouth daily. 90 Tablet 2 3 Active Lisinopril 20 MG Oral Tablet (Prinivil)Indicatio ns:HTN, goal below 140/90 Take 1 Tablet by mouth in the morning. 90 Tablet 2 3 Active Metoprolol Succinate ER 25 MG Oral Tablet Extended Release 24 Hour (toPROL XL)Indications:Typi salvador atrial flutter (HCC),Nonischemic cardiomyopathy (HCC),Paroxysmal atrial fibrillation (HCC) Take 1 tablet by mouth daily 90 Tablet 2 3 Active Levothyroxine Sodium 150 MCG Oral Tablet (Levoxyl) Take 1 Tablet by mouth daily. 90 Tablet 0 3 10/30/19 23 Discontinued Lisinopril 20 MG Oral Tablet (Prinivil)Indicatio ns:HTN, goal below 140/90 Take 1 Tablet by mouth in the morning. 90 Tablet 1 3 10/30/19 23 Discontinued Metoprolol Succinate ER 25 MG Oral Tablet Extended Release 24 Hour (toPROL XL)Indications:Typi salvador atrial flutter (HCC),Nonischemic cardiomyopathy (HCC),Paroxysmal atrial fibrillation (HCC) Take 1 tablet by mouth daily 90 Tablet 1 3 10/30/19 23 Discontinued documented as of this encounter (statuses as of 10/29/2022) Active Problems Problem Noted Date Chronic diastolic heart failure 05/12/19 23 HTN, goal below 140/90 03/07/2022 S/P ablation of atrial flutter 2 Paroxysmal atrial fibrillation 1 Coronary artery disease invo lving caddo coronary artery of caddo heart without angina pectoris 09/26/2020 Anxiety 07/24/2020 [...] as of this encounter (statuses as of 10/29/2022) Resolved Problems Problem Noted Date Resolved Date Chronic kidney disease, stage 3a 03/05/2020 04/05/2020 Overview: Per CKD protocol documented as of this encounter (statuses as of 10/29/2022) Immunizations Name Administration Dates Next Due COVID-19 mRNA, LNP-s, No Pre serve, 2-Dose Series (Pfizer) 01/29/2021,06/12/2020,05/22/2020 Covid-19, Mrna, Lnp-s, Pf, B ivalent, 30 Mcg, IM, 12 yrs and above (Pfizer) 12/10/2021 Pneumococcal Conjugate Vacc, 13 Valent (Prevnar) 09/29/2019 Seasonal Influenza, Quadriva lent Hd (Fluzone Hd) 01/29/2022,11/30/2020 Seasonal Influenza, Quadriva lent, No Preserve, 6 Mons & Above, IM 12/27/2019 Zoster Vaccine Recombinant (Shingrix) 07/03/2022 documented as [...] on file documented as of this encounter Miscellaneous Notes * Telephone Encounter - Marbin Valles RPh - 10/29/2022 8:28 AM EDT Signed Prescriptions: Disp Refills Levothyroxine Sodium 150 MCG Oral Tablet (*90 Tab*2 Sig: Take 1 Tablet by mouth daily.Authorizing Provider: Rafa BROOKE User: MARBIN VALLES Lisinopril 20 MG Oral Tablet (Prinivil) 90 Tab*2 Sig: Take 1 Tablet by mouth in the morning.Aut horizing Provider: Rafa BROOKE User: MARBIN VALLES Metoprolol Succinate ER 25 MG Oral Tablet *90 Tab*2 Sig: Take 1 tablet by mouth dailyAuthorizing Provider: Rafa BROOKE User: MARBIN VALLES documented in this encounter Plan of Treatment Upcoming Encounters Date Type Specialty Care Team Description 11/10/2022 Office Visit Family Medicine Erin Brooke MD [address] [place] [address] [place] [id number] 02/24/2023 Nurse Only Ancillary [place], Nurse Annual Wellness [address] [place] [address] [place] [id number] 03/25/2023 Office Visit Cardiology Gary Figueroa, DO [address] [place] [address] Scheduled Procedures Name Priority Associated Diagnoses Date/Ti me COLONOSCOPY FLEXIBLE PROXIMA L DIAGNOSTIC Recall History of colonic polyps Health Maintenance Due Date Last Done Comments DTaP,Tdap,and Td Vaccines (1 - Tdap) 1969 Pneumococcal Vaccine: 65+ Years (2 - PPSV23 or PCV20) 11/24/2019 09/29/2019 Zoster Vaccines (2 of 2) 08/28/2022 07/03/2022 CKD HGB USE SMARTSET 36327 10/14/202210/14, 04/03/2021, 04/03/2021, Additional history exists CKD PHOS USE SMARTSET 57376 10/30/202210/21, 10/22/2021, 06/20/2020 GFR 11/09/2022 05/12/2022, 08/0 04/2021, 10/14/2021, Additional history exists Influenza Vaccine (FLU shot) (#1) 2022 01/29/2022, 11/30/2020, 12/27/2019 Depression Screening, Annual for Pts 12 and Over 02/21/2023 02/21/2022 Albumin/Creatinine Ratio 05/12/2023 05/12/2022, 09/21 HbA1c 05/12/2023 05/12/2022, 03/23, 09/29/2019 TSH 05/12/2023 05/12/2022, 03/23, 06/20/2020, Additional history exists COLONOSCOPY-EVERY 5 YRS AGES 18-100 10/24/2024 10/25/2019, 10/25/2019 COVID-19 Vaccine Completed 12/10/2021, 11/2020, 06/12/2020, Additional history exists GARDASIL-HPV IMMUNIZATION SERIES Aged [...] as of this encounter Visit Diagnoses Diagnosis HTN, goal below 140/90 Unspecified essential hypertension Typical atrial flutter (HCC) Atrial flutter Nonischemic cardiomyopathy (HCC) Other primary cardiomyopathies Paroxysmal atrial fibrillation (HCC) Atrial fibrillation documented in this encounter Care Teams Steward/Stewardess Second Class Relationship Specialty Start Date End Date Erin Brooke MD [address] [place] [address] [place] [phone] PCP - General Family Medicine 09/29/19 documented as of this encounter
--- OUTSIDE RECORDS SUMMARY | 2023-02-24 20:14 | External Medical Summary | Summary of Care ---
Author Name Unknown Organization [facility] Address [address] [facility] [place] [address] Phone [phone] Care Team Providers Care Application Defense Manager Name Role Phone Erin Brooke MD Primary Care Provide r Reason for Visit * Reason Comments Back Pain Encounter Details Date Type Department Care Team (Late st Contact Info) Description 01/15/2023 12:30 PM EDT Office Visit [facility], [facility] [address] [place] [phone] Constance Mendoza PA-C [address] [place] [phone] Spinal stenosis of lumbar region with neurogenic claudication*; Lumbar radicular pain; History of lumbar fusion Allergies No known active allergiesdocumented as of this encounter (statuses as of 01/15/2023) Medications Medication Sig Dispensed Refills Start Date [...] as of this encounter (statuses as of 01/15/2023) Active Problems Problem Noted Date Diagnosed Date Chronic diastolic heart failure 05/12/2022 HTN, goal below 140/90 03/07/2022 S/P ablation of atrial flutter 10/18/2021 Paroxysmal atrial fibrillation 10/08/2020 Coronary artery disease invo lving flandreau coronary artery of flandreau heart without angina pectoris 09/26/2020 Anxiety 07/24/2020 [...] as of this encounter (statuses as of 01/15/2023) Resolved Problems Problem Noted Date Diagnosed Date Resolved Date Chronic kidney disease, stage 3a 03/05/2020 04/05/2020 Overview: Per CKD protocol documented as of this encounter (statuses as of 01/15/2023) Immunizations Name Administration Dates Next Due COVID-19 [...] on file documented as of this encounter Progress Notes * Constance Mendoza PA-C - 01/15/2023 12:30 PM EDT GENERAL HISTORY & PHYSICAL EXAMINATION - Anesthesia and Pain Service Name: Arturo Browne Location: [facility] REFERRING PHYSICIAN: Erin Brooke MD Thank you for referring Arturo Browne. CHIEF COMPLAINT: Low back pain HPI: Arturo Browne is a 72 year old male who complains of chronic B low back and buttock pain.Low back pain started more than ten years ago, significant hx L3-S1 decompression and fusion 2020. Did relatively well following surgery for approximately one year. Increased low back pain without injury. Followed with [facility], requested consideration of JUAN DANIEL L2/3, also discuss extending fusion to adjacent level. Reviewed L spine MRI 12/24/22 - severe adjacent segment narrowing, marked foraminal narrowing L2/3, no sign of hardware failure, moderate to severe central stenosis T11/12. Mild relief withmedication management,recently started Cymbalta. Attempted physical therapy in the past, no lastingimprovement. Symptoms occur daily. Describes pain as pinch, sharp, burn. Pain is constant, rated 2/10. Aggravating factors include: walking, lumbar flexion. Alleviating factors include: sitting, changing position. Admits associated LE fatigue and intermittent weakness - also has significant B knee p ain - questions if that is related to low back pain. Per patient, [facility] completed knee xrays, unable to view images or report. Baseline paresthesia B LE, known neuropathy. Denies bowel or bladder incontinence. Significant hx B LEONID. Hx lumbar injection prior to surgery, no lasting improvement, approach unknown. Significant past medical hx includes: chronic kidney disease, atrial fibrillation, prediabetic, HTN. Current medications used for pain: cymbalta, tylenol, ibuprofen. Anticoagulation therapy: no PAST MEDICAL HISTORY: No past medical history on file. Past Medical History - Pertinent Findings: (-) clotting disorder PAST SURGICAL HISTORY: Past Surgical History: Procedure Laterality Date COLONOSCOPY, DIAGNOSTIC (RECTUM) 10/25/2019 sigmoid diverticulosis/biopsies show adenomatous polyps/recall 5 years, health permitting/COLONOSCOPY FLEXIBLE PROXIMAL DIAGNOSTIC performed by Monse Villa MD at [facility] OTHER (INFORMATION) 08/07/2020 multiple screws and plates Dr. Valverde TOTAL HIP REPLACEMENT & PROSTHESIS Bilateral FAMILY HISTORY: Family History Problem Relation Age of Onset Stroke Mother Heart disease Father [place] age 50 Prostate cancer Brother Family History - Pertinent Findings: (-) clotting disorder SOCIAL HISTORY: Social History Tobacco Use Smoking status: Never Smokeless tobacco: Current Types: Chew Tobacco comments: occ chewing- maybe 1 can a month Vaping Use Vaping Use: Never used Substance Use Topics Alcohol use: Yes Comment: once to twice a week a beer, and holidays Drug use: Never CURRENT MEDICATIONS: Note that discontinued and completed medications (per the MAR) continue to display for 24 hours. Ordered medications to be given in the future also display. Current Outpatient Medications Medication Sig Dispense Refill [...] cut, crush or chew. 30 Capsule 5 Zoster Vac Recomb Adjuvanted 50 MCG/0.5ML Intramuscular Suspension Reconstituted (Shingrix) Inject 0.5 mL into a large muscle now and repeat dose in 60 to 180 days. Please fax date this was given to our office. (Patient not taking: Reported on 06/02/2022) 1 Each 1 No current facility-administered medications for this visit. ALLERGIES: Patient has no known allergies. ROS: Constitutional: Negative for fatigue, fever, appetite change, unexplained weight loss. ENT: Negative for hearing loss, sore throat. Respiratory: Negative for cough, shortness of breath, dyspnea. Musculoskeletal: Negative for neck, mid-back pain. + low back pain - see HPI Neurological: Negative for headaches, seizures. + paresthesias B LE - see HPI Genitourinary: Negative for dysuria, urinary frequency, hematuria. Hematologic/ Lymphatic: Negative for easy bleeding, bruising, lymphadenopathy. Gastrointestinal: Negative for abdominal pain, nausea, vomiting, constipation, diarrhea. Cardiovascular: Negative for chest pain, palpitations, ankle swelling, orthopnea. PHYSICAL EXAMINATION: Most Recent Vital Signs: There were no vitals filed for this visit. General Appearance: Patient appears to be about stated age, pleasant and cooperative with normal affect. HEENT: head normocephalic, pupils equal round and reactive to light and accommodation, EOMI, hearing intact and equal bilaterally, and nose clear, throat normal Chest: No gross abnormality. Nonlabored breathing. Lumbar Spine: Normal lumbar lordatic curvature is present. Skin is intact with well healed midline surgical scar. No masses palpable. Midline and B paravertebral musculature nontender. Mild tenderness B sacroiliac joint. No evidence of myofascial trigger points. Limited active ROM with flexion and e xtension of the lumbar spine. Lower Extremity Strength: Hip Flexion 5/5 bilaterally. Hip Abductor 5/5 bilaterally. Hip Adductor 5/5 bilaterally. Extensor Hallicus Longus 5/5 bilaterally. Deep Tendon Reflex: Patellar: 2/4 bilaterally. Achilles: 2/4 bilaterally. Low Back Provocative Testing: HOLLI test: positive bilaterally. Straight Leg Raise Test: negative bilaterally. Lumbar Facet Loading: positive bilaterally. B Hip: Nontender. Full passive ROM bilaterally, does not reproduce pain. Sensation: Dermatomal sensation not formally tested. Grossly normal and symmetric unless otherwise specified. Gait: Intact, no sign of ataxia. Ambulates without assistance. IMAGING: L spine MRI 12/24/22 - severe adjacent segment narrowing, marked foraminal narrowing L2/3, no sign of hardware failure, moderate to severe central stenosis T11/12. ASSESSMENT: Spinal stenosis with neurogenic claudication Lumbar radicular pain S/P L3 thru S1 decompression and fusion PLAN: Chronic low back pain with progression x's one year. Significant hx L3 thru S1 decompression and fusion, Dr. Valverde 2020. Considering returning to [facility] for discussion of additional surgery. Neurologically intact. Reviewed L spine MRI 12/24/22 - severe adjacent segment narrowing, marked foraminal narrowing L2/3, no sign of hardware failure, moderate to severe central stenosis T11/12. Discussed possible JUAN DANIEL L2/3, will review images with Dr. Malhotra - significant adjacent segment disease. Defers injections at this time, could also consider SI joint, some TTP on exam. Will contact clinic if interested in injection. Encouraged to continue cymbalta, recently started, likely too soon to notice full benefit. Constance Mendoza PA-C 01/15/2023 documented in this encounter Nursing Notes * Cheryl Jacobo LPN - 01/15/2023 12:20 PM EDT Patient presents with low back and b/l knee pain for many yrs Hx of surgery with MRI at [facility] in [facility] No recent PT documented in this encounter Plan of Treatment Upcoming Encounters Date Type Department Care Team (Late st Contact Info) Description 02/24/2023 9:00 AM EST Nurse Only Ancillary [address] [place] [phone] [place], Nurse [address] [place] [phone] 03/25/2023 8:30 AM EST Office Visit Cardiology, [facility] [address] [place] [address] Gary Figueroa, DO [address] [place] [phone] 01/01/2024 1:00 PM EDT Office Visit Neurology [facility] [address] [facility] [place] [address] Emily Mckenzie, DO [address] [facility] [place] [address] Scheduled Procedures Name Priority Associated Diagnoses Date/Ti me COLONOSCOPY FLEXIBLE PROXIMA L DIAGNOSTIC Recall History of colonic polyps Health Maintenance Due Date Last Done Comments DTaP,Tdap,and Td Vaccines (1 - Tdap) 1969 Pneumococcal Vaccine: 65+ Years (2 - PPSV23 or PCV20) 11/24/2019 09/29/2019 Zoster Vaccines (2 of 2) 08/28/2022 07/03/2022 CKD HGB USE SMARTSET 81383 10/14/202210/14, 04/03/2021, 04/03/2021, Additional history exists CKD PHOS USE SMARTSET 53771 10/30/202210/21, 10/22/2021, 06/20/2020 GFR 11/09/2022 05/12/2022, 04/2021, 10/14/2021, Additional history exists COVID-19 Vaccine ( - 2022- season) 2022 12/10/2021, 01/29/2021, 06/12/2020, Additional history [...] as of this encounter Visit Diagnoses Diagnosis Spinal stenosis of lumbar region with neurogenic claudication- Primary Spinal stenosis, lumbar region, with neurogenic claudication Lumbar radicular pain Thoracic or lumbosacral neuritis or radiculitis, unspecified History of lumbar fusion documented in this encounter Care Teams Application Defense Manager Relationship Specialty Start Date End Date Erin Brooke MD [address] [place] [address] [place] [phone] PCP - General Family Medicine 09/29/19 documented as of this encounter
--- OUTSIDE RECORDS SUMMARY | 2023-02-24 20:14 | External Medical Summary | Summary of Care ---
Author Name Unknown Organization [facility] Address [address] [facility] [address] Phone [phone] Care Team Providers Care Thermostatic Controls Supervisor Name Role Phone Erin Brooke MD Primary Care Provide r Reason for Visit * Reason Comments pre-op exam Encounter Details Date Type Department Care Team (Late st Contact Info) Description 02/06/2023 2:00 PM EST Office Visit Family Medicine [address] [place] [phone] Margarita Lares PA-C [address] [place] [address] [place] [id number] Preop examination* Allergies No known active allergiesdocumented as of this encounter (statuses as of 02/06/2023) Medications Medication Sig Dispensed Refills Start Date [...] as of this encounter (statuses as of 02/06/2023) Active Problems Problem Noted Date Diagnosed Date [...] as of this encounter (statuses as of 02/06/2023) Resolved Problems Problem Noted Date Diagnosed Date Resolved Date Chronic kidney disease, stage 3a 03/05/2020 04/05/2020 Overview: Per CKD protocol documented as of this encounter (statuses as of 02/06/2023) Immunizations Name Administration Dates Next Due COVID-19 mRNA, LNP-s, No Pre serve, 2-Dose Series (Keepcon) 01/29/2021,06/12/2020,05/22/2020 Covid-19, Mrna, Lnp-s, Pf, B ivalent, [...] Current Chew Tobacco Cessation:Ready to Q uit: Not Asked; Counseling Given: Not Answered Comments:occ chewing- maybe 1 can a month [...] Sign Reading Time Taken Comments Blood Pressure 134/72 02/06/2023 1:45 PM EST Pulse 62 02/06/2023 1:45 PM EST Temperature 35.8 C (96.4 F) 02/06/2023 1:45 PM ES T Respiratory Rate - - Oxygen Saturation 99% 02/06/2023 1:45 PM EST Inhaled Oxygen Concentration - - Weight 112.9 kg (249 lb) 02/06/2023 1:45 PM EST Height - - Body Mass Index 34.02 12/05/2022 4:46 PM EDT documented in this encounter Progress Notes * Margarita Lares PA-C - 02/06/2023 1:45 PM EST Nursing Notes: Bernadine Devlin LPN 02/06/23 1345 Sign at exiting of workspace Chief Complaint Patient presents with pre-op exam Pre op clearance for Dr. Lagos 02/24/2023 at [facility] Lab / EKG done at [facility] on 02/03/2023 The patient has been properly identified by confirmation of name and date of . Pt here today for preop. Pt scheduled for surgery on 02/24/[address] Valverde. Already had labs and EKG done at [facility]. Labs and EKG ok. Pt has no issues at this time. Review of patient's allergies indicates: No Known [...] given to our office. 1 Each 1 Aspirin EC 81 MG [...] cut, crush or chew. 30 Capsule 5 No current facility-administered medications for this visit. No past medical history on file. Social History Socioeconomic History Marital status: Spouse name: Not on file Number of children: Not on file Years of education: Not on file Highest education level: Not on file Occupational History Not on file Tobacco Use Smoking status: Never Smokeless tobacco: Current Types: Chew Tobacco comments: occ chewing- maybe 1 can a month Vaping Use Vaping Use: Never used Substance and Sexual Activity Alcohol use: Yes Comment: once to twice a week a beer, and holidays Drug use: Never Sexual activity: Not on file Other Topics Concern Not on file Social History Narrative for 54rs. As of 02/21/2022 Social Determinants of Health Financial Resource Strain: Not on file Food Insecurity: No Food Insecurity (02/21/2022) Hunger Vital Sign Worried About Running Out of Food in the Last Year: Never true Ran Out of Food in the Last Year: Never true Transportation Needs: Not on file Physical Activity: Not on file Stress: Not on file Social Connections: Not on file Intimate Partner Violence: Not on file Housing Stability: Not on file Past Surgical History: Procedure Laterality Date COLONOSCOPY, DIAGNOSTIC (RECTUM) 10/25/2019 sigmoid diverticulosis/biopsies show adenomatous polyps/recall 5 years, health permitting/COLONOSCOPY FLEXIBLE PROXIMAL DIAGNOSTIC performed by Monse Villa MD at ENDOSCOPY [facility] OTHER (INFORMATION) 08/07/2020 multiple screws and plates Dr. Valverde TOTAL HIP REPLACEMENT & PROSTHESIS Bilateral Family History Problem Relation Age of Onset Stroke Mother Heart disease Father OR age 50 Prostate cancer Brother O:Blood pressure 134/72, pulse 62, temperature 35.8 C (96.4 F), temperature source Tympanic, weight 112.9 kg (249 lb), SpO2 99%. GENERAL: alert, healthy, and no distress NECK: supple, no adenopathy, no bruits, thyroid normal size, non-tender, without nodularity EYES: PERRLA, conjunctiva are pink and non-injected, sclera clear EARS: External ears normal, Canals clear, TM's Normal NOSE: no mucosal erythema, no mucosal edema, no purulent discharge OROPHARYNX: no exudate, no erythema, lips, buccal mucosa, and tongue normal, and mucous membranes are moist HEART: regular rate & rhythm, no murmur, and no gallops LUNGS: chest symmetric with normal AP diameter, no chest deformities noted, no chest wall tenderness, lungs clear to auscultation ABDOMEN: abdomen soft, non-tender, normal bowel sounds, and no masses or organomegaly A:Preop examination (Primary) Pt cleared for surgery. Any questions/problems, please call. Follow Up: Return if symptoms worsen or fail to improve. Margarita Lares PA-C documented in this encounter Nursing Notes * Bernadine Devlin LPN - 02/06/2023 1:44 PM EST Chief Complaint Patient presents with pre-op exam Pre op clearance for Dr. Lagos 02/24/2023 at [facility] Lab / EKG done at [facility] on 02/03/2023 The patient has been properly identified by confirmation of name and date of . documented in this encounter Plan of Treatment Upcoming Encounters Date Type Department Care Team (Late st Contact Info) Description 02/16/2023 8:00 AM EST Office Visit Cardiology, [facility] [address] [facility] [place] [id number] Genna Silverman PA-C [address] [place] [address] [place] [phone] 03/25/2023 8:30 AM EST Office Visit [facility] [address] [facility] [place] [phone] Gary Figueroa DO [address] [facility] [place] [phone] 05/26/2023 8:30 AM EST Nurse Only Ancillary [address] [place] [phone] [place], Nurse Annual [address] [place] [phone] 01/01/2024 1:00 PM EDT Office Visit Neurology [facility] [place] [address] [facility] [place] [address] Emily Mckenzie, DO [address] [facility] [id number] Scheduled Procedures Name Priority Associated Diagnoses Date/Ti me COLONOSCOPY FLEXIBLE PROXIMA L DIAGNOSTIC Recall History of colonic polyps Health Maintenance Due Date Last Done Comments DTaP,Tdap,and Td Vaccines (1 - Tdap) 1969 Pneumococcal Vaccine: 65+ Years (2 - PPSV23 or PCV20) 11/24/2019 09/29/2019 Zoster Vaccines (2 of 2) 08/28/2022 07/03/2022 CKD PHOS USE SMARTSET 02232 10/30/202210/21, 10/22/2021, 06/20/2020 COVID-19 Vaccine (2022- season) 2022 12/10/2021, 01/29/2021, 06/12/2020, Additional history exists Depression Screening 02/21/2023 02/21/2022 Albumin/Creatinine Ratio 05/12/2023 05/12/2022, 09/21 TSH 05/12/2023 05/12/2022, 03/23, 06/20/2020, Additional history exists GFR 08/04/2023 02/03/2023, 04/24, 10/22/2021, Additional history exists CKD HGB USE SMARTSET 25263 02/04/202402/03, 10/14/2021, 04/03/2021, Additional history exists HbA1c [...] as of this encounter Visit Diagnoses Diagnosis Preop examination- Primary Preoperative examination, unspecified documented in this encounter Care Teams Thermostatic Controls Supervisor Relationship Specialty Start Date End Date Erin Brooke MD [address] [place] [address] [place] [phone] PCP - General Family Medicine 09/29/19 documented as of this encounter
--- OUTSIDE RECORDS SUMMARY | 2023-02-24 20:14 | External Medical Summary | Summary of Care ---
Author Name Unknown Organization [facility] Address [address] [place] [address] Phone [phone] Care Team Providers Care Pattern Molder Name Role Phone Erin Brooke MD Primary Care Provide r Encounter Details Date Type Department Care Team Description 09/15/2022 Orders Only Outcomes Research Department [address] [place] [address] Sia Donovan CHRA [employer] Research Other*[id number] Allergies No known active allergiesdocumented as of this encounter (statuses as of 09/15/2022) Medications Medication Sig Dispensed Refills Start Date End Date Status One-A-Day Mens 50+ Oral Tablet Take 1 Tablet by mouth daily. 0 Active Docusate Sodium 50 MG Oral Capsule (Colace) Take 1 Capsule by mouth in the morning. 0 Active Zoster Vac Recomb Adjuvanted 50 MCG/0.5ML Intramuscular Suspension Reconstituted (Shingrix)Indications :Need for shingles vaccine Inject 0.5 mL into [...] for Pain, Severe. 30 Tablet 0 09/24/2021 Active Aspirin EC 81 MG Oral Tablet Delayed Release Take 1 Tablet by mouth in the morning. 0 11/22/2021 Active Levothyroxine Sodium 150 MCG Oral Tablet (Levoxyl) Take 1 Tablet by mouth daily. 90 Tablet 0 04/18/2022 Active Lisinopril 20 MG Oral Tablet (Prinivil)Indications :HTN, goal below 140/90 Take 1 Tablet by mouth in the morning. 90 Tablet 1 04/18/2022 Active Rosuvastatin Calcium 20 MG Oral Tablet (Crestor) Take 1 Tablet by mouth in the morning. 90 Tablet 3 04/24/2022 Active Metoprolol Succinate ER 25 MG Oral Tablet Extended Release 24 Hour (toPROL XL)Indications:Typica l atrial flutter (HCC),Nonischemic cardiomyopathy (HCC),Paroxysmal atrial fibrillation (HCC) Take 1 tablet by mouth daily 90 Tablet 1 05/02/2022 Active documented as of this encounter (statuses as of 09/15/2022) Active Problems Problem Noted Date Chronic diastolic heart failure 05/12/19 23 HTN, goal below 140/90 03/07/2022 S/P ablation of atrial flutter 2 Paroxysmal atrial fibrillation 1 Coronary artery disease invo lving [place] coronary artery of [place] heart without angina pectoris 09/26/2020 Anxiety 07/24/2020 [...] as of this encounter (statuses as of 09/15/2022) Resolved Problems Problem Noted Date Resolved Date Chronic kidney disease, stage 3a 03/05/2020 04/05/2020 Overview: Per CKD protocol documented as of this encounter (statuses as of 09/15/2022) Immunizations Name Administration Dates Next Due COVID-19 [...] Office Visit Family Medicine Erin Brooke MD [address] [place] [address] [place] [phone] 02/24/2023 Nurse Only Ancillary Gracie Nurse [facility] [address] [place] [address] [place] [phone] 03/25/2023 Office Visit Cardiology Gary Figueroa, DO [address] [place] [phone] Scheduled Orders Name Type Priority Associated Diagnoses Orde r Schedule MYCODE SUBSEQUENT ADULT Lab Routine [employer] Other*[id number] Every 6 Months for 2 Occurrences starting 09/15/2022 until 10/05/2023 Scheduled Procedures Name Priority Associated Diagnoses Date/Ti me COLONOSCOPY FLEXIBLE PROXIMA L DIAGNOSTIC Recall History of colonic polyps Health Maintenance Due Date Last Done Comments DTaP,Tdap,and Td Vaccines (1 - Tdap) 1969 Pneumococcal Vaccine: 65+ Years (2 - PPSV23 if available, else PCV20) 11/24/2019 09/29/2019 Zoster Vaccines (2 of 2) 08/28/2022 07/03/2022 CKD HGB USE SMARTSET 94938 10/14/202210/14, 04/03/2021, 04/03/2021, Additional history exists CKD PHOS USE SMARTSET 60527 10/30/2022 08, 10/22/2021, 06/20/2020 GFR 11/09/2022 05/12/2022, 0804/2021, 10/14/2021, Additional history exists Depression Screening, Annual for Pts 12 and Over 02/21/2023 02/21/2022 Albumin/Creatinine Ratio 05/12/2023 05/12/2022, 09/21 HbA1c 05/12/2023 05/12/2022, 03/23, 09/29/2019 TSH 05/12/2023 05/12/2022, 03/23, 06/20/2020, Additional history exists COLONOSCOPY-EVERY 5 YRS AGES 18-100 10/24/2024 10/25/2019, 10/25/2019 COVID-19 Vaccine Completed 12/10/2021, 11/2020, 06/12/2020, Additional history exists Influenza Vaccine (FLU shot) Completed 11/2021, 11/30/2020, 12/27/2019 GARDASIL-HPV IMMUNIZATION SERIES Aged Out No longer [...] as of this encounter Visit Diagnoses Diagnosis [employer] Other*[id number] documented in this encounter Care Teams Pattern Molder Relationship Specialty Start Date End Date Erin Brooke MD [address] [place] [address] [place] [phone] PCP - General Family Medicine 09/29/19 documented as of this encounter
[2023-02-24] MEDS: TAMSULOSIN HCL 0.4 MG CAP PO SCH (21:43)
[2023-02-24] MEDS: DOCUSATE SODIUM/SENNA 50/8.6MG TAB PO SCH (21:43)
[2023-02-24] MEDS: ceFAZolin 2000MG 2,000 MG/15 ML SYR IV SCH (21:44)
[2023-02-24] MEDS ORDERED: Nursing to Pharmacy Communication SCH (22:30)
[2023-02-25] MEDS: LACTATED RINGER'S 1,000 ML IV SCH ×3 (01:09→21:59)
[2023-02-25] MEDS: oxyCODONE HCL IR 5 MG TAB (IMMEDIATE RELEASE) PO PRN ×2 (04:03→10:34)
[2023-02-25] MEDS: ceFAZolin 2000MG 2,000 MG/15 ML SYR IV SCH (05:34)
[2023-02-25] MEDS: POLYETHYLENE (MIRALAX) 17 GM PACK PO SCH ×3 (05:34→18:04)
[2023-02-25] MEDS: LEVOTHYROXINE SODIUM 150 MCG TABLET PO SCH (05:34)
[2023-02-25] MEDS: traMADol HCL 50 MG TABLET PO PRN ×3 (08:37→20:48)
[2023-02-25] MEDS: ROSUVASTATIN CALCIUM 20 MG TAB PO SCH (08:38)
[2023-02-25] MEDS: MULTIVITAMIN TAB PO SCH (08:38)
[2023-02-25] MEDS: DULoxetine HCL 30 MG CAP PO SCH (08:38)
[2023-02-25] MEDS: lisinopril 20 MG TAB PO SCH (08:38)
[2023-02-25] MEDS: METOPROLOL SUCC 25MG EXT REL TAB PO SCH (08:39)
[2023-02-25] MEDS: ASPIRIN 81 MG ECTAB PO SCH (08:39)
[2023-02-25] MEDS: dexAMETHasone 6 MG in SYRINGE 0 ML IV SCH (08:40)
[2023-02-25] MEDS ORDERED: LEVOTHYROXINE SODIUM 150 MCG TABLET PO SCH (09:00)
[2023-02-25 09:41] LABS: Basophils # (auto) 0.01 K/uL (0.00-0.20); Basophils % (auto) 0.1 %; Hemoglobin 13.3 g/dl (14.0-18.0); Immature Granulocytes # (auto) 0.09 K/uL (0.01-0.20); Immature Granulocytes % (auto) 0.5 %; Lymphocytes # (auto) 0.76 K/uL (1.20-3.40); Lymphocytes % (auto) 4.6 %; Mean Corpuscular Hemoglobin 31.7 pg (25.0-34.0); Mean Corpuscular Volume 90.7 fL (80.0-100.0); Mean Platelet Volume 9.5 fL (9.4-12.4); Monocytes # (auto) 1.11 K/uL (0.11-0.59); Monocytes % (auto) 6.7 %; Neutrophils # (auto) 14.71 K/uL (1.40-6.50); Neutrophils % (auto) 88.1 %; Platelet Count 219 K/uL (130-400); RDW Coefficient of Variation 12.3 % (11.5-14.5); RDW Standard Deviation 40.8 fL (36.4-46.3); Red Blood Count 4.19 M/uL (4.70-6.10); White Blood Count 16.68 K/ul (4.8-10.8)
[2023-02-25 10:11] LABS: BUN Creatinine Ratio 25.9 (10-20); Calcium 8.8 mg/dl (8.6-10.3); Creatinine Clr Calc Pharmacy 78.5 ml/min; Est GFR (African American) 78.5 ml/min; Est GFR (Non-African American) 67.7 ml/min; Magnesium 1.8 mg/dl (1.7-2.4); Potassium 4.3 mmol/L (3.5-5.1)
--- NOTE | 2023-02-25 11:14 | Orthopedic Progress Note ---
Date of Service February 25, 2023 Assessment & Plan (1) Neurogenic claudication due to lumbar spinal stenosis: Plan: Arturo is postoperative day 1 status post L2-3 decompression instrumented fusion and marrying onto existing construct. Will start physical therapy today. Maintain JANELL drain. DVT prophylaxis is in the form teds and SCDs. Continue with pain control. Anticipate discharge home on Thursday Admission and Anticipated Discharge Date Admission Date: February 24, 2023 Subjective Arturo is postoperative day 1 status post L2-3 decompression instrumented fusion. He has had an uneventful evening. Has some modest back pain. No radicular leg pain. JANELL drain output last shift was 20 cc. Review of Systems Review of Systems: All systems reviewed & are unremarkable except as noted in HPI & below Physical Exam Physical Exam: He sitting up in bed in no acute distress Alert and oriented x 3 Lumbar dressing is clean dry and intact with functioning JANELL drain Calf soft nontender bilateral Strength intact bilateral lower extremities Results & Data Vital Signs (Past 12 Hours) Vital Signs Temp Pulse Resp BP Pulse Ox O2 Del Method 02/25/23 06:56 36.5 C 65 18 144/77 H 96 Room Air 02/25/23 03:18 36.5 C 61 18 134/75 98 Room Air 02/24/23 23:29 36.5 C 64 16 125/76 97 Room Air
--- NOTE | 2023-02-25 16:46 | Hospitalist Progress Note ---
Date of Service February 25, 2023 Assessment & Plan (1) Neurogenic claudication due to lumbar spinal stenosis: Plan: Lumbar spinal stenosis with neurogenic claudication -S/p lumbar decompression fusion by Dr. Valverde of L2-L3. By Dr. Valverde on 02/24/2023 Postoperative acute blood loss anemia Leukocytosis reactive secondary to surgery, steroids Wound care, activity, DVT prophylaxis per primary team Continue PT OT, incentive spirometry Monitor CBC Bowel regimen to prevent constipation (2) NICM (nonischemic cardiomyopathy): Plan: Continue home medications (3) Atrial fibrillation: Plan: Continue metoprolol, lisinopril (4) Hyperlipidemia: Plan: Most recent echo from 02/16 showing EF of 60-64%, left ventricular diastolic function mildly abnormal. Mild mitral regurg present, mild tricuspid regurg present. Stable. Continue statin (5) CKD (chronic kidney disease): Plan: Creatinine at baseline Monitor (6) Hypothyroidism: Plan: -Continue levothyroxine 150 mcg daily Chronic, stable (7) BPH (benign prostatic hyperplasia): Plan: - Pt reports he has not been on Flomax for many years although previously was recommended by urology. Dempsey catheter in place. Monitor for retention Bladder scan as needed DVT Px: Per primary team CODE STATUS: FULL CODE Admission and Anticipated Discharge Date Admission Date: February 24, 2023 Subjective Patient is seen and examined at bedside Back pain at surgical site is controlled Denies any chest pain, dyspnea, dizziness, nausea, vomiting, abdominal pain + Flatus, no bowel movement today Had PT evaluation today Review of Systems Review of Systems: All systems reviewed & are unremarkable except as noted in Subjective Physical Exam Physical Exam: Physical Exam: Vitals signs as noted above General Appearance:Moderately built and nourished, no apparent distress Head: normocephalic, Atraumatic Eyes: normal inspection, EOMI Neck: supple, Trachea midline Respiratory/Chest: Normal breath sounds, CTA, No accessory muscle use Cardiovascular: S1, S2, No murmur Abdomen/GI:Soft, Non tender, Bowel sounds present Back:+Surgical site in dressing Extremities/Musculoskeletal:normal inspection, no edema Neurologic/Psych:AAOX3, grossly no focal neurological deficits Skin: normal color, warm Results & Data Results & Data Vital Signs (Past 12 Hours) Vital Signs Temp Pulse Resp BP Pulse Ox O2 Del Method 02/25/23 14:39 36.5 C 73 16 117/73 97 Room Air 02/25/23 06:56 36.5 C 65 18 144/77 H 96 Room Air Laboratory Results Short CBC 02/25/23 Range/Units 08:57 WBC 16.68 H (4.8-10.8) K/ul Hgb 13.3 L (14.0-18.0) g/dl Hct 38.0 L (42.0-52.0) % Plt Count 219 (130-400) K/uL BMP 02/25/23 08:57 Sodium 133 L Potassium 4.3 Chloride 100 Carbon Dioxide 24 BUN 28 H Creatinine 1.08 Glucose 189 H Calcium 8.8
[2023-02-25] MEDS: DOCUSATE SODIUM/SENNA 50/8.6MG TAB PO SCH (20:48)
[2023-02-25] MEDS: TAMSULOSIN HCL 0.4 MG CAP PO SCH (20:49)
[2023-02-26] MEDS: POLYETHYLENE (MIRALAX) 17 GM PACK PO SCH ×3 (00:07→12:00)
[2023-02-26] MEDS: LEVOTHYROXINE SODIUM 150 MCG TABLET PO SCH (05:58)
[2023-02-26 06:18] LABS: Hematocrit (blood only) 33.7 % (42.0-52.0); Hemoglobin 11.9 g/dl (14.0-18.0); Mean Corpuscular Hemoglobin 32.3 pg (25.0-34.0); Mean Corpuscular Hgb Conc 35.3 g/dL (32.0-36.0); Mean Corpuscular Volume 91.6 fL (80.0-100.0); Mean Platelet Volume 9.5 fL (9.4-12.4); Platelet Count 187 K/uL (130-400); RDW Coefficient of Variation 12.6 % (11.5-14.5); RDW Standard Deviation 42.2 fL (36.4-46.3); Red Blood Count 3.68 M/uL (4.70-6.10); White Blood Count 17.12 K/ul (4.8-10.8)
[2023-02-26 06:37] LABS: BUN Creatinine Ratio 29.5 (10-20); Calcium 8.5 mg/dl (8.6-10.3); Creatinine Clr Calc Pharmacy 75.7 ml/min; Est GFR (African American) 75.1 ml/min; Est GFR (Non-African American) 64.8 ml/min; Potassium 4.9 mmol/L (3.5-5.1)
[2023-02-26] MEDS: dexAMETHasone 6 MG in SYRINGE 0 ML IV SCH (07:49)
[2023-02-26] MEDS: traMADol HCL 50 MG TABLET PO PRN ×2 (07:54→14:27)
[2023-02-26] MEDS: ASPIRIN 81 MG ECTAB PO SCH (08:37)
[2023-02-26] MEDS: lisinopril 20 MG TAB PO SCH (08:37)
[2023-02-26] MEDS: ROSUVASTATIN CALCIUM 20 MG TAB PO SCH (08:38)
[2023-02-26] MEDS: DULoxetine HCL 30 MG CAP PO SCH (08:38)
[2023-02-26] MEDS: MULTIVITAMIN TAB PO SCH (08:38)
[2023-02-26] MEDS: METOPROLOL SUCC 25MG EXT REL TAB PO SCH (08:38)
--- NOTE | 2023-02-26 08:45 | Discharge Summary ---
Date of Service February 26, 2023 Admission HPI Per Admitting Provider This is a 72-year-old male who presents with chronic persistent back and leg pain and failing course of nonoperative care is here for surgical intervention. Principal Diagnosis Lumbar spinal stenosis with neurogenic medication Discharge Data Allergies Allergy/AdvReac Type Severity Reaction Status Date / Time No Known Allergies Allergy Verified 02/24/23 11:51 Consultations 02/24/23 16:35 Consult Hospitalist Routine Procedures Performed Operation Date: 02/24/23 12:55 Actual Procedures p L2-L3 Decompression and Fusion, Spinal Cord Monitoring(Not Applicable) - Thom Valverde DO Ordered Studies 02/24/23 12:55 FL lumbar spine 2-3V Routine Hospital Course (1) Neurogenic claudication due to lumbar spinal stenosis: Patient with vomiting manage patient tolerated this show stable orthopedic for possible. Possibly progressed appropriately. JANELL drain decreasing appropriately. I suspect the testing. Pain well-controlled subsequently discharged home. Discharge orders and instructions found in chart for further review. Total Time Total Time Spent Total Time Spent (In Minutes): 20 minutes Discharge Plan Discharge Items Patient Disposition: Home - Self-Care Reason For Visit: POSTOP Discharge Diagnosis: Spinal stenosis with neurogenic claudication Activity: As commented below Non-emergency contact: Primary Care Provider Call non-emergency contact if: you have any medication questions Follow-up/Referrals: Erin Brooke MD [Primary Care Provider] - Diet: Regular Addtl Attending Provider Instructions: ACTIVITY RECOMMENDATIONS: SELF CARE INSTRUCTIONS AFTER THORACIC/LUMBAR FUSIONS 1. You may walk to your tolerance. It is good exercise for your legs and back. Expect some back and intermittent leg aches and pains. 2. You may perform "counter-top" level activities (make a sandwich, senia with a project, etc.). 3. No bending or lifting of more than 10 pounds or back twisting of any nature (roll like a log when turning in bed). 4. You may ride in a car for 20-30 minutes at a time. No driving until after your first visit with your doctor. 5. Frequent changes of position and restricting sitting to 30 minutes at a time will help limit the amount of back spasms and stiffness you may experience. 6. You may discontinue the use of ambulatory aids (cane, crutches, etc.) once your strength and confidence allow. 7. You may sales agent business services the shower and let water strike your incision when you arrive home at least once daily. Do not take a tub bath, sit in a hot tub or go into a swimming pool until after your first recheck in the office. SPECIAL CARE INSTRUCTIONS: VERY IMPORTANT TO READ AND REVIEW A. Your surgical incision has been closed with a cosmetic suture under the skin that will dissolve in about 6 weeks. In 14 days, you can use a pair of clean scissors and cut the suture that is left outside of the skin at the ends of your incision. 1. The small skin tapes can be removed 7 days after surgery if they have not fallen off by that point. 2. You may keep the wound open to air as much as possible to promote healing after post-op day number 5 unless told otherwise by your doctor. 3. If you think the wound looks like it is becoming infected (redness or worsening drainage) and/or you are experiencing fever, chill or worsening back pain and muscle spasms, contact the office so that we may evaluate you as soon as possible. B. Complications are uncommon, but please contact us if you have any signs or symptoms of: 1. wound infection (fever higher than 102.5 degrees F, redness, separation of wound, drainage, or increasing pain from the incision) 2. blood clots in legs (pain, swelling, redness and warmth in legs) 3. urinary tract infection (fever higher than 102.5 degrees F, burning upon urination or increased frequency of urination) 4. nerve problems (inability to walk on your toes or heels, numbness, loss of bowel or bladder control) 5. any other symptoms that concern you C. Please call the office at if you have any concerns or questions about your operation or recovery. D. No smoking! Smoking drastically decreases the chance of a solid fusion. E. Do not take any anti-inflammatory medications (Indocin, Advil, Motrin, Aspirin, Naprosyn, etc.) as these may inhibit the chance of a solid fusion. Tylenol is okay to take for pain. MANAGING PAIN AFTER SPINAL SURGERY 1. Narcotic medication is intended for short-term use and will be provided for surgical pain. Surgical pain usually lasts for a period of 4-6 weeks. Narcotic medication includes Percocet, Vicodin, Darvocet, Tylenol #3 or Lortab. 2. Longer-term pain is more appropriately treated with non-narcotic medication such as Tylenol ES. 3. Muscle spasm is not appropriately treated with narcotics. Muscle relaxers such as Soma, Flexeril or Skelaxin can be used along with Tylenol ES. 4. Remember that we all live with some "aches and pains". This is not unusual or uncommon after an injury or as we get older. a. Back pain is expected and may include muscle spasms for 4 to 6 weeks after surgery. The pain should gradually improve. If the pain worsens for no apparent reason, please contact the office. b. Intermittent leg pain may also be experienced and should not be concerned about unless it worsens for no apparent reason. If so, please contact the office. 5. We will provide appropriate medication within the normal guidelines of their prescribed use. We will also be very cautious and aware of potential abuse and extended duration of patients' medication needs. a. Pain medications are for your comfort and to assist with sleep and rest so that the tissue can heal. They are not provided in order to return to normal activity and should not be used through the day. To do so or worsening pain at night can result from ongoing tissue damage and development of tolerance to the prescribed medicine. 6. Please allow 2-3 days to process refills. Prescriptions will not be mailed but must be picked up at the office. FOLLOW UP VISIT: Keep your scheduled follow-up appointment. Any questions, please call the office at . Pending Studies at Discharge: No Stand-Alone Forms: My [facility], Smoking Cessation Medications and DC Order Prescriptions: New oxycodone 5 mg tablet 5 mg PO Q6H PRN (Reason: pain) Qty: 30 0RF tramadol 50 mg tablet 50 mg PO Q6H PRN (Reason: pain, moderate) Qty: 30 0RF Continued sildenafil (pulm.hypertension) 20 mg tablet 20 mg PO ONCE PRN (Reason: sexual activity) Qty: 25 3RF Rx Instructions: administer doses at least 1 hour prior to need levothyroxine 150 mcg Tablet 150 mcg PO QAM multivitamin Tablet 1 tab PO QAM lisinopril 20 mg Tablet 20 mg PO QAM aspirin 81 mg Tablet,Delayed Release (Dr/Ec) 81 mg PO QAM rosuvastatin 20 mg Tablet 20 mg PO QAM duloxetine 30 mg Capsule,Delayed Release(Dr/Ec) 30 mg PO QAM metoprolol succinate [Toprol XL] 25 mg tablet extended release 24 hr 25 mg PO QAM Discharge Orders: Discharge Order (Routine); Ordered 02/26/23 Ordered By: Thom Valverde Admission Data Admit Date/Time: 02/24/23 15:26 Attending Provider: Thom Valverde Admit Provider: Thom Valverde Primary Care Provider: Erin Brooke Other Providers: Priscilla Ansari; Madi Munoz
--- NOTE | 2023-02-26 09:04 | Hospitalist Progress Note ---
Date of Service February 26, 2023 Assessment & Plan (1) Neurogenic claudication due to lumbar spinal stenosis: Plan: Lumbar spinal stenosis with neurogenic claudication -S/p lumbar decompression fusion by Dr. Valverde of L2-L3. By Dr. Valverde on 02/24/2023 Postoperative acute blood loss anemia Leukocytosis reactive secondary to surgery, steroids Wound care, activity, DVT prophylaxis per primary team Continue PT OT, incentive spirometry Monitor CBC Bowel regimen to prevent constipation Advised to follow-up with PCP in 1 week upon discharge (2) NICM (nonischemic cardiomyopathy): Plan: Continue home medications (3) Atrial fibrillation: Plan: S/P ablation as per patient Continue metoprolol, lisinopril (4) Hyperlipidemia: Plan: Most recent echo from 02/16 showing EF of 60-64%, left ventricular diastolic function mildly abnormal. Mild mitral regurg present, mild tricuspid regurg present. Stable. Continue statin (5) CKD (chronic kidney disease): Plan: Creatinine at baseline Monitor (6) Hypothyroidism: Plan: -Continue levothyroxine 150 mcg daily Chronic, stable (7) BPH (benign prostatic hyperplasia): Plan: - Pt reports he has not been on Flomax for many years although previously was recommended by urology. Dempsey catheter in place. Monitor for retention Bladder scan as needed DVT Px: Per primary team CODE STATUS: FULL CODE Admission and Anticipated Discharge Date Admission Date: February 24, 2023 Subjective Patient is seen and examined at bedside Small bowel movement today Back pain is controlled No new complaints Plan to be discharged home today Denies any chest pain, dyspnea, dizziness, nausea, vomiting, abdominal pain Review of Systems Review of Systems: All systems reviewed & are unremarkable except as noted in Subjective Physical Exam Physical Exam: Physical Exam: Vitals signs as noted above General Appearance:Moderately built and nourished, no apparent distress Head: normocephalic, Atraumatic Eyes: normal inspection, EOMI Neck: supple, Trachea midline Respiratory/Chest: Normal breath sounds, CTA, No accessory muscle use Cardiovascular: S1, S2, No murmur Abdomen/GI:Soft, Non tender, Bowel sounds present Back:+Surgical site in dressing Extremities/Musculoskeletal:normal inspection, no edema Neurologic/Psych:AAOX3, grossly no focal neurological deficits Skin: normal color, warm Results & Data Results & Data Vital Signs (Past 12 Hours) Vital Signs Temp Pulse Resp BP Pulse Ox O2 Del Method 02/26/23 07:47 36.5 C 72 18 120/70 96 Room Air 02/25/23 22:26 36.7 C 62 18 121/72 97 Room Air Laboratory Results Short CBC 02/25/23 02/26/23 Range/Units 08:57 05:47 WBC 16.68 H 17.12 H (4.8-10.8) K/ul Hgb 13.3 L 11.9 L (14.0-18.0) g/dl Hct 38.0 L 33.7 L (42.0-52.0) % Plt Count 219 187 (130-400) K/uL BMP 02/25/23 02/26/23 08:57 05:47 Sodium 133 L 133 L Potassium 4.3 4.9 Chloride 100 102 Carbon Dioxide 24 27 BUN 28 H 33 H Creatinine 1.08 1.12 Glucose 189 H 136 H Calcium 8.8 8.5 L
== END 2023-02-26 14:44 | disposition home or self-care (01) | DRG 454 ==
LOC: ASU 11:27 → 3E 15:26